=== PATIENT | male | born 1980 | race American Indian/Alaskan Native ===

== ENCOUNTER 2016-11-02 13:29 | Inpatient (IN) | payer MEDICAID ==
[2016-11-02 14:48] LABS: Hematocrit 28.6 % (35.5-45.6); Hemoglobin 9.4 gm/dl (11.8-15.2); Mean Corpuscular HGB Conc 33 % (32-34); Mean Corpuscular Hemoglobin 29 pg (28-32); Mean Corpuscular Volume 87 fl (84-94); Platelet Count 572 K/mm3 (140-440); Red Blood Count 3.29 M/mm3 (3.65-5.03); Red Cell Distribution Width 12.9 % (13.2-15.2); White Blood Count 6.5 K/mm3 (4.5-11.0)
[2016-11-02 15:05] LABS: Alanine Aminotransferase 7 units/L (7-56); Albumin 3.1 g/dL (3.9-5); Albumin/Globulin Ratio 0.7 %; Alkaline Phosphatase 100 units/L (35-129); Anion Gap 17 mmol/L; BUN/Creatinine Ratio 11.11; Blood Urea Nitrogen 10 mg/dL (9-20); Calcium 8.3 mg/dL (8.4-10.2); Carbon Dioxide 24 mmol/L (22-30); Chloride 104.1 mmol/L (98-107); Glucose 107 mg/dL (75-100); Potassium 4.2 mmol/L (3.6-5.0); Sodium 141 mmol/L (137-145); Total Protein 7.8 g/dL (6.3-8.2)
[2016-11-02 15:14] LABS: Basophils % (Manual) 0 % (0.0-1.8); Blastocytes % (Manual) 0 %; Diff Status Complete; RBC Morphology Normal
[2016-11-02 15:19] LABS: Valproate < 2.8 ug/mL (50-100)
[2016-11-02] MEDS ORDERED: ZOFRAN IV ONE (15:32)
[2016-11-02] MEDS ORDERED: ASPIRIN PO ONE (15:32)
[2016-11-02] MEDS ORDERED: NITRO-BID 2% TP ONE (15:34)
[2016-11-02] MEDS ORDERED: DILAUDID IV ONE (15:34)
--- NOTE | 2016-11-02 15:44 | Emergency Department Report ---
HPI - General Chief Complaint: Seizure Time Seen by Provider: 11/02/16 15:21 - HPI HPI: Room 4 The patient is a 36-year-old male presenting with a chief complaint of chest pain. Patient states his symptoms began is restroom patient states he noticed rectal bleeding became dizzy. Patient states he went to lay down then developed substernal chest tightness associated with shortness of breath diaphoresis and nausea without vomiting. The patient was then told by his roommate he had a generalized tonic-clonic seizure. The patient currently gives his chest pain a score of 9/10. The patient has a history of MO in 2016 door which time a cardiac stent was placed Location: Chest Duration: hours Quality: Tightness Severity: 9/10 Modifying factors: [see above] Context: [see above] Mode of transportation: [not driving] ED Past Medical Hx - Past Medical History Previous Medical History?: Yes Hx Heart Attack/AMI: Yes Hx Seizures: Yes Hx HIV: Yes (on therapy. Last CD4 count in the 30s) Additional medical history: Herpes, UTI - Surgical History Past Surgical History?: No - Family History Family history: no significant - Social History Smoking Status: Never Smoker Substance Use Type: None (denies illicit drug use) ED Review of Systems ROS: Stated complaint: SEIZURE/CHEST PAIN Other details as noted in HPI Comment: All other systems reviewed and negative Constitutional: diaphoresis Eyes: denies: eye pain, eye discharge, vision change ENT: denies: ear pain, throat pain Respiratory: shortness of breath Cardiovascular: chest pain. denies: palpitations Endocrine: no symptoms reported Gastrointestinal: nausea. denies: vomiting Genitourinary: denies: urgency, dysuria Musculoskeletal: denies: back pain, joint swelling, arthralgia Skin: denies: rash, lesions Neurological: denies: headache, weakness, paresthesias Psychiatric: denies: anxiety, depression Hematological/Lymphatic: denies: easy bleeding, easy bruising Physical Exam - Physical Exam Vital Signs: Vital Signs 11/02/16 14:14 Temperature 98.5 F Pulse Rate 93 H Respiratory 16 Rate Blood Pressure 128/88 O2 Sat by Pulse 100 Oximetry Physical Exam: GENERAL: The patient is well-developed well-nourished male lying on the left lateral decubitus position not appearing to be in acute distress. [] HEENT: Normocephalic. Atraumatic. Extraocular motions are intact. Patient has moist mucous membranes. NECK: Supple. Trachea midline CHEST/LUNGS: Clear to auscultation. There is no respiratory distress noted. HEART/CARDIOVASCULAR: Regular. There is no tachycardia. There is no gallop rub or murmur. ABDOMEN: Abdomen is soft, nontender. Patient has normal bowel sounds. There is no abdominal distention. SKIN: There is no diaphoresis. NEURO: The patient is awake, alert, and oriented. The patient is cooperative. The patient has normal speech MUSCULOSKELETAL: There is no evidence of acute injury. ED Course Vital Signs 11/02/16 14:14 Temperature 98.5 F Pulse Rate 93 H Respiratory 16 Rate Blood Pressure 128/88 O2 Sat by Pulse 100 Oximetry ED Medical Decision Making - Lab Data Result diagrams: 11/02/16 14:28 11/02/16 14:28 Laboratory Tests 11/02/16 11/02/16 11/02/16 14:21 14:28 14:28 WBC 6.5 RBC 3.29 L Hgb 9.4 L Hct 28.6 L MCV 87 MCH 29 MCHC 33 RDW 12.9 L Plt Count 572 H [place] % (Auto) Vet Assistant Add Manual Diff Complete Total Counted 100 Seg Neutrophils % Vet Assistant Seg Neuts % (Manual) 81.0 H Band Neutrophils % 0 Lymphocytes % (Manual) 12.0 L Reactive Lymphs % (Man) 0 Monocytes % (Manual) 6.0 Eosinophils % (Manual) 1.0 Basophils % (Manual) 0 Metamyelocytes % 0 Myelocytes % 0 Promyelocytes % 0 Blast Cells % 0 Nucleated RBC % Not Reportable Seg Neutrophils # Man 5.3 Band Neutrophils # 0.0 Lymphocytes # (Manual) 0.8 L Abs React Lymphs (Man) 0.0 Monocytes # (Manual) 0.4 Eosinophils # (Manual) 0.1 Basophils # (Manual) 0.0 Metamyelocytes # 0.0 Myelocytes # 0.0 Promyelocytes # 0.0 Blast Cells # 0.0 WBC Morphology Not Reportable Hypersegmented Neuts Not Reportable Hyposegmented Neuts Not Reportable Hypogranular Neuts Not Reportable Smudge Cells Not Reportable Toxic Granulation Not Reportable Toxic Vacuolation Not Reportable Dohle Bodies Not Reportable Pelger-Huet Anomaly Not Reportable Kasie Rods Not Reportable Platelet Estimate Appears normal Clumped Platelets Not Reportable Plt Clumps, EDTA Not Reportable Large Platelets Not Reportable Giant Platelets Not Reportable Platelet Satelliting Not Reportable Plt Morphology Comment Not Reportable RBC Morphology Normal Dimorphic RBCs Not Reportable Polychromasia Not Reportable Hypochromasia Not Reportable Poikilocytosis Not Reportable Anisocytosis Not Reportable Microcytosis Not Reportable Macrocytosis Not Reportable Spherocytes Not Reportable Pappenheimer Bodies Not Reportable Sickle Cells Not Reportable Target Cells Not Reportable Tear Drop Cells Not Reportable Ovalocytes Not Reportable Helmet Cells Not Reportable Yepez-[place] Bodies Not Reportable [place] Rings Not Reportable Darryl Cells Not Reportable Bite Cells Not Reportable Crenated Cell Not Reportable Elliptocytes Not Reportable Acanthocytes (Spur) Not Reportable Rouleaux Not Reportable Hemoglobin C Crystals Not Reportable Schistocytes Not Reportable Malaria parasites Not Reportable Jaime Bodies Not Reportable Hem Pathologist Commnt No Sodium 141 Potassium 4.2 Chloride 104.1 Carbon Dioxide 24 Anion Gap 17 BUN 10 Creatinine 0.9 Estimated GFR > 60 BUN/Creatinine Ratio 11.11 Glucose 107 H POC Glucose 111 H Calcium 8.3 L Total Bilirubin 0.30 AST 17 ALT 7 Alkaline Phosphatase 100 Troponin T Total Protein 7.8 Albumin 3.1 L Albumin/Globulin Ratio 0.7 Phenytoin Valproic Acid 11/02/16 11/02/16 14:28 14:28 WBC RBC Hgb Hct MCV MCH MCHC RDW Plt Count [place] % (Auto) Add Manual Diff Total Counted Seg Neutrophils % Seg Neuts % (Manual) Band Neutrophils % Lymphocytes % (Manual) Reactive Lymphs % (Man) Monocytes % (Manual) Eosinophils % (Manual) Basophils % (Manual) Metamyelocytes % Myelocytes % Promyelocytes % Blast Cells % Nucleated RBC % Seg Neutrophils # Man Band Neutrophils # Lymphocytes # (Manual) Abs React Lymphs (Man) Monocytes # (Manual) Eosinophils # (Manual) Basophils # (Manual) Metamyelocytes # Myelocytes # Promyelocytes # Blast Cells # WBC Morphology Hypersegmented Neuts Hyposegmented Neuts Hypogranular Neuts Smudge Cells Toxic Granulation Toxic Vacuolation Dohle Bodies Pelger-Huet Anomaly Kasie Rods Platelet Estimate Clumped Platelets Plt Clumps, EDTA Large Platelets Giant Platelets Platelet Satelliting Plt Morphology Comment RBC Morphology Dimorphic RBCs Polychromasia Hypochromasia Poikilocytosis Anisocytosis Microcytosis Macrocytosis Spherocytes Pappenheimer Bodies Sickle Cells Target Cells Tear Drop Cells Ovalocytes Helmet Cells Yepez-[place] Bodies [place] Rings Darryl Cells Bite Cells Crenated Cell Elliptocytes Acanthocytes (Spur) Rouleaux Hemoglobin C Crystals Schistocytes Malaria parasites Jaime Bodies Hem Pathologist Commnt Sodium Potassium Chloride Carbon Dioxide Anion Gap BUN Creatinine Estimated GFR BUN/Creatinine Ratio Glucose POC Glucose Calcium Total Bilirubin AST ALT Alkaline Phosphatase Troponin T < 0.010 Total Protein Albumin Albumin/Globulin Ratio Phenytoin 0.8 L Valproic Acid < 2.8 L - EKG Data -: EKG Interpreted by Me EKG shows normal: sinus rhythm Rate: normal - EKG Data When compared to previous EKG there are: previous EKG unavailable Interpretation: other (no ischemic changes seen) - Radiology Data Radiology results: image reviewed (chest x-ray) interpreted by me: Chest x-ray-no focal infiltrates, no pneumothorax - Differential Diagnosis ACS, GERD, pericarditis Critical care attestation.: If time is entered above; I have spent that time in minutes in the direct care of this critically ill patient, excluding procedure time. ED Disposition Clinical Impression: Chest pain Disposition: DC-[id number] OP ADMIT IP TO THIS HOSP Is pt being admited?: Yes Does the pt Need Aspirin: Yes Condition: Fair Instructions: Chest Pain (ED) Referrals: PRIMARY CARE, [Primary Care Provider] - 3-5 Days Time of Disposition: 15:53 (Hospitalist notified)
--- NOTE | 2016-11-02 16:25 | XRay Report ---
FINAL REPORT PROCEDURE: XR CHEST 1V AP TECHNIQUE: Chest radiograph anteroposterior view. CPT 48104 HISTORY: chest pain COMPARISON: No prior studies are available for comparison. FINDINGS: Heart: Normal. Mediastinum/Vessels: Normal. Lungs/Pleural space: Normal. Bony thorax: No acute osseous abnormality. Life support devices: None. IMPRESSION: No acute cardiopulmonary abnormality.
[2016-11-02] MEDS ORDERED: CEREBYX 500 MG.PE in NACL 0.9% 100 ML IV ONE (16:30)
--- NOTE | 2016-11-02 16:34 | History and Physical Report ---
History of Present Illness Chief complaint: I feel tired, History of present illness: 36 YO Male with OH, CAD S/P Stent placement, Seizure Disorder, AIDS, HSV presents to ED for evaluation. Pt states that he began feeling sick today. Patient states he was using the restroom when he noticed blood on his stool. Pt states that he suddenly became dizzy. Patient states he went to lay down then developed chest tightness. Pt also complains of shortness of breath and feeling of impending doom and then lost consciousness. Upon regaining consciousness, the patient was told by his roommate he had a generalized tonic-clonic seizure. Pt is confused, lethargic, and shows cognitive slowing but is able to protect his airway. Past History Past Medical History: acute OH, CAD, HIV/AIDS, seizures Past Surgical History: Other (stent placement) Social history: single, other (leves with friends). denies: smoking, alcohol abuse, prescription drug abuse Family history: hypertension Medications and Allergies Allergies Allergy/AdvReac Type Severity Reaction Status Date / Time No Known Allergies Allergy Unverified 11/02/16 14:19 Active Meds: Active Medications Fosphenytoin Sodium 500 mg.pe/ (Sodium Chloride) 110 mls @ 200 mls/hr IV ONCE.ED ONE Stop: 11/02/16 17:02 Last Admin: 11/02/16 16:14 Dose: 200 mls/hr Review of Systems All systems: negative Constitutional: no fever, no chills, no sweats Ears, nose, mouth and throat: no ear pain Cardiovascular: no chest pain, no orthopnea, no palpitations Respiratory: no cough, no cough with sputum Gastrointestinal: no abdominal pain Genitourinary Male: no hematuria, no flank pain Rectal: other (blood in stool), no pain Musculoskeletal: no neck stiffness Integumentary: no rash, no redness Neurological: seizures, no head injury, no paralysis Psychiatric: anxiety Endocrine: no cold intolerance, no heat intolerance Hematologic/Lymphatic: no easy bruising, no easy bleeding Allergic/Immunologic: no urticaria Exam - Constitutional Vitals: Temp Pulse Resp BP Pulse Ox 98.5 F 93 H 16 128/88 100 11/02/16 14:14 11/02/16 14:14 11/02/16 14:14 11/02/16 14:14 08/06/17 14:14 General appearance: Present: mild distress - EENT Eyes: Present: PERRL ENT: hearing intact, clear oral mucosa - Neck Neck: Present: supple, normal ROM - Respiratory Respiratory: bilateral: diminished - Cardiovascular Heart Sounds: Present: S1 & S2. Absent: rub, click - Extremities Extremities: pulses symmetrical, No edema Extremity abnormal: edema Peripheral Pulses: within normal limits - Abdominal General gastrointestinal: Present: soft, non-tender, non-distended, normal bowel sounds Male genitourinary: Present: normal - Integumentary Integumentary: Present: clear, dry, clammy, decreased turgor - Musculoskeletal Musculoskeletal: generalized weakness - Psychiatric Psychiatric: cooperative, agitated - Neurologic Neurologic: no focal deficits, no gait normal, other (cognitive slowing, ) Results - Labs CBC & Chem 7: 11/02/16 14:28 11/02/16 14:28 Labs: Abnormal lab results 11/02/16 11/02/16 11/02/16 Range/Units 14:21 14:28 14:28 RBC 3.29 L (3.65-5.03) M/mm3 Hgb 9.4 L (11.8-15.2) gm/dl Hct 28.6 L (35.5-45.6) % RDW 12.9 L (13.2-15.2) % Plt Count 572 H (140-440) K/mm3 Seg Neuts % (Manual) 81.0 H (40.0-70.0) % Lymphocytes % (Manual) 12.0 L (13.4-35.0) % Lymphocytes # (Manual) 0.8 L (1.2-5.4) K/mm3 Glucose 107 H (75-100) mg/dL POC Glucose 111 H (70-105) Calcium 8.3 L (8.4-10.2) mg/dL Albumin 3.1 L (3.9-5) g/dL Phenytoin (10.0-20.0) mg/L Valproic Acid (50-100) ug/mL 11/02/16 Range/Units 14:28 RBC (3.65-5.03) M/mm3 Hgb (11.8-15.2) gm/dl Hct (35.5-45.6) % RDW (13.2-15.2) % Plt Count (140-440) K/mm3 Seg Neuts % (Manual) (40.0-70.0) % Lymphocytes % (Manual) (13.4-35.0) % Lymphocytes # (Manual) (1.2-5.4) K/mm3 Glucose (75-100) mg/dL POC Glucose (70-105) Calcium (8.4-10.2) mg/dL Albumin (3.9-5) g/dL Phenytoin 0.8 L (10.0-20.0) mg/L Valproic Acid < 2.8 L (50-100) ug/mL Assessment and Plan - Patient Problems (1) Status epilepticus Current Visit: Yes Status: Acute Plan to address problem: CT head, EEG, keppra therapy, (2) Encephalopathy acute Current Visit: Yes Status: Acute Plan to address problem: IVF replacement, CT head, It CT negative, will consider Crypto/CMV antigen. (3) AIDS Current Visit: Yes Status: Acute Plan to address problem: Resume home medication, Outpatient ID F/U (4) GI bleed Current Visit: Yes Status: Acute Qualifiers: GI bleed type/associated pathology: anorectal hemorrhage Gastritis type: G Qualified Code(s): K62.5 - Hemorrhage of anus and rectum Plan to address problem: CBC in am, ppi therapy, supportive care, No transfusion at this time. (5) DVT prophylaxis Current Visit: Yes Status: Acute
[2016-11-02] MEDS ORDERED: TYLENOL PO PRN (16:37)
[2016-11-02] MEDS ORDERED: MILK OF MAGNESIA PO PRN (16:37)
[2016-11-02] MEDS ORDERED: PROVENTIL IH PRN (16:37)
[2016-11-02] MEDS ORDERED: DULCOLAX PR PRN (16:37)
--- NOTE | 2016-11-02 17:10 | Cat Scan Report ---
FINAL REPORT PROCEDURE: CT HEAD/BRAIN WO CON TECHNIQUE: Computerized tomography of the head was performed without contrast material. HISTORY: seizure COMPARISON: No prior studies are available for comparison. FINDINGS: Visualized portions of the paranasal sinuses and mastoid air cells are clear. No calvarial fracture is seen. Cerebral ventricles are normal in size. No acute intracranial hemorrhage or mass effect is seen. No CVA is seen. IMPRESSION: No abnormalities are seen.
[2016-11-02 18:27] LABS: Bilirubin,Urine NEG (Negative); Blood,Urine NEG (Negative); Ketones,Urine NEG (Negative); Leukocyte Esterase,Urine MOD (Negative); Mucus,Urine FEW /HPF; Nitrite,Urine NEG (Negative)
[2016-11-02] MEDS: TYLENOL #3 PO PRN (20:57)
[2016-11-02] MEDS: KEPPRA PO SCH (21:32)
--- NOTE | 2016-11-03 04:48 | Admit Criteria Form ---
Admission Criteria Documentation: SEIZURE Clinical Indications for Admission to Inpatient Care (Place 'X' for any and all applicable criteria): Admission is indicated for seizure and ANY ONE of the following(1)(2)(3)(4)(5): [ ]I. Inpatient admission required rather than observation care (Also use Seizure: Observation Care Criteria as appropriate) because of ANY ONE of the following: [ ]a) Altered mental status that is severe or persistent [ ]b) New focal neurologic deficit that is severe or persistent [ ]c) Metabolic disorder (eg, hypoglycemia, hyponatremia) that is severe or persistent [ ]d) Recurrent seizure [ ]e) Outpatient antiseizure regimen cannot be established (eg , patient cannot tolerate medication, initiation requires inpatient care) [ ]f) Need for ongoing intravenous infusion of antiseizure medication [ ]g) Cardiac arrhythmias of immediate concern [ ]h) Cerebral bleeding, hydrocephalus, or vasospasm monitoring (14) [ ]i) Increased intracranial pressure or cerebral edema monitoring (15) [ ]j) Other treatment or monitoring requiring inpatient admission [X]II. Status epilepticus [A] or repetitive seizures not controlled with emergent treatment (6)(8) [ ]III. Brain disorder (eg, tumor, edema, and hydrocephalus) that requiring monitoring or intervention available only at inpatient level of care. [ ]IV. Brain insult (eg, severe trauma, stroke, drug toxicity, or withdrawal) that requires monitoring or intervention available only at inpatient level of care (10)(11) Extended stay beyond goal length of stay may be needed for (22) [ ]a) Complications of status epilepticus [ ]b) Refractory status epilepticus [ ]c) Etiology-specific therapy for conditions such as [employer]. [employer] infection, head injury,eclampsia, severe metabolic abnormalities, and brain tumor [ ]d) Residual neurologic damage, [ ]e) Initiation of significant change to anticonvulsant treatment [ ]f) Older patients (65 years or older) [ ]g) Patient requiring intubation (eg, to protect airway) The original [employer] content created by [employer] has been revised. The portions of the content which have been revised are identified through the use of italic text or in bold, and [facility] [employer] has neither reviewed nor approved the modified material. All other unmodified content is copyright [facility] [employer]. Please see references footnoted in the original [facility] edition 2016 Admission Criteria Met: Yes
[2016-11-03] MEDS: TYLENOL #3 PO PRN (04:52)
--- NOTE | 2016-11-03 08:20 | Progress Note ---
<JANE MACKAY - Last Filed: 11/03/16 13:46> Assessment and Plan Assessment and plan: Status epilepticus Normal CT of the head EEG pending MRI of the brain pending Started on keppra therapy Neurology consulted Encephalopathy acute Resolved Urinary Tract Infection Started on Keflex by mouth IV fluid hydration AIDS Patient has a CD4 34 in September 2016 Comprehensive virus culture/ G6PD and cryptococcal antigen Started on antiviral (Truvada and ritonavir-boosted Prezista while inpatient due to formulary restrictions), also Bactrim for PCP prophylaxis. managed by Infectious diseases. 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 Cryptococcal antigen ordred GI bleed Stable no transfusion needed at present time. Closely monitor H&H and CBC GI consulted Supportive care Continue on ppi therapy. Rectal Ulcer Patient has ulcerations involves rectal,penis and throughout his gluteal fold Wound care consulted Followed by ID c DVT prophylaxis Lovenox History Interval history: Patient complains chronic rectal area pain and rated his pain level 7/10. No episode of seizures overnight, denies headache, chest pain or dizziness. Hospitalist Physical - Constitutional Vitals: Temp Pulse Resp BP Pulse Ox 100.4 F H 81 18 117/70 99 11/02/16 22:00 11/02/16 22:00 11/02/16 22:00 11/02/16 22:00 11/02/16 22:00 General appearance: Present: no acute distress - EENT Eyes: Present: PERRL ENT: hearing intact - Neck Neck: Present: supple - Respiratory Respiratory effort: normal Respiratory: bilateral: CTA - Cardiovascular Rhythm: regular Heart Sounds: Present: S1 & S2 - Extremities Extremities: no ischemia Peripheral Pulses: within normal limits - Abdominal General gastrointestinal: soft, non-tender - Integumentary Integumentary: Present: clear (Sacrum wound, with gauze dressing, ) - Psychiatric Psychiatric: appropriate mood/affect - Neurologic Neurologic: CNII-XII intact, moves all extremities - Allied Health Allied health notes reviewed: nursing Results - Labs CBC & Chem 7: 11/03/16 09:00 11/02/16 14:28 Labs: Laboratory Last Values WBC 6.5 K/mm3 (4.5-11.0) 11/02/16 14:28 RBC 3.29 M/mm3 (3.65-5.03) L 11/02/16 14:28 Hgb 9.4 gm/dl (11.8-15.2) L 11/02/16 14:28 Hct 28.6 % (35.5-45.6) L 11/02/16 14:28 MCV 87 fl (84-94) 11/02/16 14:28 MCH 29 pg (28-32) 11/02/16 14:28 MCHC 33 % (32-34) 11/02/16 14:28 RDW 12.9 % (13.2-15.2) L 11/02/16 14:28 Plt Count 572 K/mm3 (140-440) H 11/02/16 14:28 [place] % (Auto) Benefit Authorizer 11/02/16 14:28 Add Manual Diff Complete 11/02/16 14:28 Total Counted 100 11/02/16 14:28 Seg Neutrophils % Benefit Authorizer 11/02/16 14:28 Seg Neuts % (Manual) 81.0 % (40.0-70.0) H 11/02/16 14:28 Band Neutrophils % 0 % 11/02/16 14:28 Lymphocytes % (Manual) 12.0 % (13.4-35.0) L 11/02/16 14:28 Reactive Lymphs % (Man) 0 % 11/02/16 14:28 Monocytes % (Manual) 6.0 % (0.0-7.3) 11/02/16 14:28 Eosinophils % (Manual) 1.0 % (0.0-4.3) 11/02/16 14:28 Basophils % (Manual) 0 % (0.0-1.8) 11/02/16 14:28 Metamyelocytes % 0 % 11/02/16 14:28 Myelocytes % 0 % 11/02/16 14:28 Promyelocytes % 0 % 11/02/16 14:28 Blast Cells % 0 % 11/02/16 14:28 Nucleated RBC % Not Reportable 11/02/16 14:28 Seg Neutrophils # Man 5.3 K/mm3 (1.8-7.7) 11/02/16 14:28 Band Neutrophils # 0.0 K/mm3 11/02/16 14:28 Lymphocytes # (Manual) 0.8 K/mm3 (1.2-5.4) L 11/02/16 14:28 Abs React Lymphs (Man) 0.0 K/mm3 11/02/16 14:28 Monocytes # (Manual) 0.4 K/mm3 (0.0-0.8) 11/02/16 14:28 Eosinophils # (Manual) 0.1 K/mm3 (0.0-0.4) 11/02/16 14:28 Basophils # (Manual) 0.0 K/mm3 (0.0-0.1) 11/02/16 14:28 Metamyelocytes # 0.0 K/mm3 11/02/16 14:28 Myelocytes # 0.0 K/mm3 11/02/16 14:28 Promyelocytes # 0.0 K/mm3 11/02/16 14:28 Blast Cells # 0.0 K/mm3 11/02/16 14:28 WBC Morphology Not Reportable 11/02/16 14:28 Hypersegmented Neuts Not Reportable 11/02/16 14:28 Hyposegmented Neuts Not Reportable 11/02/16 14:28 Hypogranular Neuts Not Reportable 11/02/16 14:28 Smudge Cells Not Reportable 11/02/16 14:28 Toxic Granulation Not Reportable 11/02/16 14:28 Toxic Vacuolation Not Reportable 11/02/16 14:28 Dohle Bodies Not Reportable 11/02/16 14:28 Pelger-Huet Anomaly Not Reportable 11/02/16 14:28 Kasie Rods Not Reportable 11/02/16 14:28 Platelet Estimate Appears normal 11/02/16 14:28 Clumped Platelets Not Reportable 11/02/16 14:28 Plt Clumps, EDTA Not Reportable 11/02/16 14:28 Large Platelets Not Reportable 11/02/16 14:28 Giant Platelets Not Reportable 11/02/16 14:28 Platelet Satelliting Not Reportable 11/02/16 14:28 Plt Morphology Comment Not Reportable 11/02/16 14:28 RBC Morphology Normal 11/02/16 14:28 Dimorphic RBCs Not Reportable 11/02/16 14:28 Polychromasia Not Reportable 11/02/16 14:28 Hypochromasia Not Reportable 11/02/16 14:28 Poikilocytosis Not Reportable 11/02/16 14:28 Anisocytosis Not Reportable 11/02/16 14:28 Microcytosis Not Reportable 11/02/16 14:28 Macrocytosis Not Reportable 11/02/16 14:28 Spherocytes Not Reportable 11/02/16 14:28 Pappenheimer Bodies Not Reportable 11/02/16 14:28 Sickle Cells Not Reportable 11/02/16 14:28 Target Cells Not Reportable 11/02/16 14:28 Tear Drop Cells Not Reportable 11/02/16 14:28 Ovalocytes Not Reportable 11/02/16 14:28 Helmet Cells Not Reportable 11/02/16 14:28 Yepez-Swartz Bodies Not Reportable 11/02/16 14:28 [place] Rings Not Reportable 11/02/16 14:28 Darryl Cells Not Reportable 11/02/16 14:28 Bite Cells Not Reportable 11/02/16 14:28 Crenated Cell Not Reportable 11/02/16 14:28 Elliptocytes Not Reportable 11/02/16 14:28 Acanthocytes (Spur) Not Reportable 11/02/16 14:28 Rouleaux Not Reportable 11/02/16 14:28 Hemoglobin C Crystals Not Reportable 11/02/16 14:28 Schistocytes Not Reportable 11/02/16 14:28 Malaria parasites Not Reportable 11/02/16 14:28 Jaime Bodies Not Reportable 11/02/16 14:28 Hem Pathologist Commnt No 11/02/16 14:28 Sodium 141 mmol/L (137-145) 11/02/16 14:28 Potassium 4.2 mmol/L (3.6-5.0) 11/02/16 14:28 Chloride 104.1 mmol/L (98-107) 11/02/16 14:28 Carbon Dioxide 24 mmol/L (22-30) 11/02/16 14:28 Anion Gap 17 mmol/L 11/02/16 14:28 BUN 10 mg/dL (9-20) 11/02/16 14:28 Creatinine 0.9 mg/dL (0.8-1.5) 11/02/16 14:28 Estimated GFR > 60 ml/min 11/02/16 14:28 BUN/Creatinine Ratio 11.11 % 11/02/16 14:28 Glucose 107 mg/dL (75-100) H 11/02/16 14:28 POC Glucose 111 (70-105) H 11/02/16 14:21 Calcium 8.3 mg/dL (8.4-10.2) L 11/02/16 14:28 Total Bilirubin 0.30 mg/dL (0.1-1.2) 11/02/16 14:28 AST 17 units/L (5-40) 11/02/16 14:28 ALT 7 units/L (7-56) 11/02/16 14:28 Alkaline Phosphatase 100 units/L (35-129) 11/02/16 14:28 Troponin T < 0.010 ng/mL (0.00-0.029) 11/02/16 20:20 Total Protein 7.8 g/dL (6.3-8.2) 11/02/16 14:28 Albumin 3.1 g/dL (3.9-5) L 11/02/16 14:28 Albumin/Globulin Ratio 0.7 % 11/02/16 14:28 Urine Color Yellow (Yellow) 11/02/16 16:34 Urine Turbidity Clear (Clear) 11/02/16 16:34 Urine pH 5.0 (5.0-7.0) 11/02/16 16:34 Ur Specific Clark 1.027 (1.003-1.030) 11/02/16 16:34 Urine Protein 30 mg/dl mg/dL (Negative) 11/02/16 16:34 Urine Glucose (UA) Neg mg/dL (Negative) 11/02/16 16:34 Urine Ketones Neg mg/dL (Negative) 11/02/16 16:34 Urine Blood Neg (Negative) 11/02/16 16:34 Urine Nitrite Neg (Negative) 11/02/16 16:34 Urine Bilirubin Neg (Negative) 11/02/16 16:34 Urine Urobilinogen 4.0 mg/dL (<2.0) 11/02/16 16:34 Ur Leukocyte Esterase Mod (Negative) 11/02/16 16:34 Urine WBC (Auto) 63.0 /HPF (0.0-6.0) H 11/02/16 16:34 Urine RBC (Auto) 16.0 /HPF (0.0-6.0) 11/02/16 16:34 U Epithel Cells (Auto) 5.0 /HPF (0-13.0) 11/02/16 16:34 Urine Mucus Few /HPF 11/02/16 16:34 Phenytoin 0.8 mg/L (10.0-20.0) L 11/02/16 14:28 Valproic Acid < 2.8 ug/mL (50-100) L 11/02/16 14:28 <SINDY TRAN - Last Filed: 11/03/16 15:12> Assessment and Plan Assessment and plan: I saw and evaluated the patient. I agree with the findings and the plan of care as documented in the Nurse Practitioner's~note, with the following corrections and additions. Extensively discussed with patient, ID and neurology consult, pain control, obtain medical records. Discussed with GI and ID. Plan as noted. Hospitalist Physical - Constitutional Vitals: Temp Pulse Resp BP Pulse Ox 99.8 F H 82 18 106/56 99 11/03/16 08:15 11/03/16 08:15 11/03/16 08:15 11/03/16 08:15 11/03/16 08:15 Results - Labs CBC & Chem 7: 11/03/16 09:00 11/02/16 14:28 Labs: Laboratory Last Values WBC 6.5 K/mm3 (4.5-11.0) 11/02/16 14:28 RBC 3.29 M/mm3 (3.65-5.03) L 11/02/16 14:28 Hgb 9.2 gm/dl (11.8-15.2) L 11/03/16 09:00 Hct 27.1 % (35.5-45.6) L 11/03/16 09:00 MCV 87 fl (84-94) 11/02/16 14:28 MCH 29 pg (28-32) 11/02/16 14:28 MCHC 33 % (32-34) 11/02/16 14:28 RDW 12.9 % (13.2-15.2) L 11/02/16 14:28 Plt Count 572 K/mm3 (140-440) H 11/02/16 14:28 [place] % (Auto) Benefit Authorizer 11/02/16 14:28 Add Manual Diff Complete 11/02/16 14:28 Total Counted 100 11/02/16 14:28 Seg Neutrophils % Benefit Authorizer 11/02/16 14:28 Seg Neuts % (Manual) 81.0 % (40.0-70.0) H 11/02/16 14:28 Band Neutrophils % 0 % 11/02/16 14:28 Lymphocytes % (Manual) 12.0 % (13.4-35.0) L 11/02/16 14:28 Reactive Lymphs % (Man) 0 % 11/02/16 14:28 Monocytes % (Manual) 6.0 % (0.0-7.3) 11/02/16 14:28 Eosinophils % (Manual) 1.0 % (0.0-4.3) 11/02/16 14:28 Basophils % (Manual) 0 % (0.0-1.8) 11/02/16 14:28 Metamyelocytes % 0 % 11/02/16 14:28 Myelocytes % 0 % 11/02/16 14:28 Promyelocytes % 0 % 11/02/16 14:28 Blast Cells % 0 % 11/02/16 14:28 Nucleated RBC % Not Reportable 11/02/16 14:28 Seg Neutrophils # Man 5.3 K/mm3 (1.8-7.7) 11/02/16 14:28 Band Neutrophils # 0.0 K/mm3 11/02/16 14:28 Lymphocytes # (Manual) 0.8 K/mm3 (1.2-5.4) L 11/02/16 14:28 Abs React Lymphs (Man) 0.0 K/mm3 11/02/16 14:28 Monocytes # (Manual) 0.4 K/mm3 (0.0-0.8) 11/02/16 14:28 Eosinophils # (Manual) 0.1 K/mm3 (0.0-0.4) 11/02/16 14:28 Basophils # (Manual) 0.0 K/mm3 (0.0-0.1) 11/02/16 14:28 Metamyelocytes # 0.0 K/mm3 11/02/16 14:28 Myelocytes # 0.0 K/mm3 11/02/16 14:28 Promyelocytes # 0.0 K/mm3 11/02/16 14:28 Blast Cells # 0.0 K/mm3 11/02/16 14:28 WBC Morphology Not Reportable 11/02/16 14:28 Hypersegmented Neuts Not Reportable 11/02/16 14:28 Hyposegmented Neuts Not Reportable 11/02/16 14:28 Hypogranular Neuts Not Reportable 11/02/16 14:28 Smudge Cells Not Reportable 11/02/16 14:28 Toxic Granulation Not Reportable 11/02/16 14:28 Toxic Vacuolation Not Reportable 11/02/16 14:28 Dohle Bodies Not Reportable 11/02/16 14:28 Pelger-Huet Anomaly Not Reportable 11/02/16 14:28 Kasie Rods Not Reportable 11/02/16 14:28 Platelet Estimate Appears normal 11/02/16 14:28 Clumped Platelets Not Reportable 11/02/16 14:28 Plt Clumps, EDTA Not Reportable 11/02/16 14:28 Large Platelets Not Reportable 11/02/16 14:28 Giant Platelets Not Reportable 11/02/16 14:28 Platelet Satelliting Not Reportable 11/02/16 14:28 Plt Morphology Comment Not Reportable 11/02/16 14:28 RBC Morphology Normal 11/02/16 14:28 Dimorphic RBCs Not Reportable 11/02/16 14:28 Polychromasia Not Reportable 11/02/16 14:28 Hypochromasia Not Reportable 11/02/16 14:28 Poikilocytosis Not Reportable 11/02/16 14:28 Anisocytosis Not Reportable 11/02/16 14:28 Microcytosis Not Reportable 11/02/16 14:28 Macrocytosis Not Reportable 11/02/16 14:28 Spherocytes Not Reportable 11/02/16 14:28 Pappenheimer Bodies Not Reportable 11/02/16 14:28 Sickle Cells Not Reportable 11/02/16 14:28 Target Cells Not Reportable 11/02/16 14:28 Tear Drop Cells Not Reportable 11/02/16 14:28 Ovalocytes Not Reportable 11/02/16 14:28 Helmet Cells Not Reportable 11/02/16 14:28 Yepez-Swartz Bodies Not Reportable 11/02/16 14:28 [place] Rings Not Reportable 11/02/16 14:28 Darryl Cells Not Reportable 11/02/16 14:28 Bite Cells Not Reportable 11/02/16 14:28 Crenated Cell Not Reportable 11/02/16 14:28 Elliptocytes Not Reportable 11/02/16 14:28 Acanthocytes (Spur) Not Reportable 11/02/16 14:28 Rouleaux Not Reportable 11/02/16 14:28 Hemoglobin C Crystals Not Reportable 11/02/16 14:28 Schistocytes Not Reportable 11/02/16 14:28 Malaria parasites Not Reportable 11/02/16 14:28 Jaime Bodies Not Reportable 11/02/16 14:28 Hem Pathologist Commnt No 11/02/16 14:28 Sodium 141 mmol/L (137-145) 11/02/16 14:28 Potassium 4.2 mmol/L (3.6-5.0) 11/02/16 14:28 Chloride 104.1 mmol/L (98-107) 11/02/16 14:28 Carbon Dioxide 24 mmol/L (22-30) 11/02/16 14:28 Anion Gap 17 mmol/L 11/02/16 14:28 BUN 10 mg/dL (9-20) 11/02/16 14:28 Creatinine 0.9 mg/dL (0.8-1.5) 11/02/16 14:28 Estimated GFR > 60 ml/min 11/02/16 14:28 BUN/Creatinine Ratio 11.11 % 11/02/16 14:28 Glucose 107 mg/dL (75-100) H 11/02/16 14:28 POC Glucose 111 (70-105) H 11/02/16 14:21 Calcium 8.3 mg/dL (8.4-10.2) L 11/02/16 14:28 Total Bilirubin 0.30 mg/dL (0.1-1.2) 11/02/16 14:28 AST 17 units/L (5-40) 11/02/16 14:28 ALT 7 units/L (7-56) 11/02/16 14:28 Alkaline Phosphatase 100 units/L (35-129) 11/02/16 14:28 Troponin T < 0.010 ng/mL (0.00-0.029) 11/02/16 20:20 Total Protein 7.8 g/dL (6.3-8.2) 11/02/16 14:28 Albumin 3.1 g/dL (3.9-5) L 11/02/16 14:28 Albumin/Globulin Ratio 0.7 % 11/02/16 14:28 Urine Color Yellow (Yellow) 11/02/16 16:34 Urine Turbidity Clear (Clear) 11/02/16 16:34 Urine pH 5.0 (5.0-7.0) 11/02/16 16:34 Ur Specific [place] 1.027 (1.003-1.030) 11/02/16 16:34 Urine Protein 30 mg/dl mg/dL (Negative) 11/02/16 16:34 Urine Glucose (UA) Neg mg/dL (Negative) 11/02/16 16:34 Urine Ketones Neg mg/dL (Negative) 11/02/16 16:34 Urine Blood Neg (Negative) 11/02/16 16:34 Urine Nitrite Neg (Negative) 11/02/16 16:34 Urine Bilirubin Neg (Negative) 11/02/16 16:34 Urine Urobilinogen 4.0 mg/dL (<2.0) 11/02/16 16:34 Ur Leukocyte Esterase Mod (Negative) 11/02/16 16:34 Urine WBC (Auto) 63.0 /HPF (0.0-6.0) H 11/02/16 16:34 Urine RBC (Auto) 16.0 /HPF (0.0-6.0) 11/02/16 16:34 U Epithel Cells (Auto) 5.0 /HPF (0-13.0) 11/02/16 16:34 Urine Mucus Few /HPF 11/02/16 16:34 Phenytoin 0.8 mg/L (10.0-20.0) L 11/02/16 14:28 Valproic Acid < 2.8 ug/mL (50-100) L 11/02/16 14:28
[2016-11-03] MEDS: ZOFRAN IV PRN (08:33)
[2016-11-03 09:50] LABS: Hematocrit 27.1 % (35.5-45.6); Hemoglobin 9.2 gm/dl (11.8-15.2)
--- NOTE | 2016-11-03 10:53 | Gastroenterology Consultation ---
History of Present Illness - Reason for Consult Consult date: 11/03/16 GI bleed Requesting physician: AMIE COHN - History of Present Illness Patient is a 36 y/o male with a medical history of TN, CAD, HIV, and seizures who presented to the ER yesterday for evaluation due to c/o blood in stool, dizziness, chest tightness, SOB, and s/p a tonic-clonic seizure. This morning he was laying on his side in the bed due to rectal pain. Mild distress noted. He reports having rectal pain with a wound that is malodorous with copious drainage that has progressively worsened since last year after undergoing surgical intervention for a rectal fissure. He also reports being told by a PCP that the rectal sores were positive for HSV which has not improved with treatment. He states he had a BM yesterday with brown stool but noted a large amount of maroon/bright red colored blood in the toilet and bright red blood on TP. He states it took him a long time to clean himself up afterwards, becoming tired, and then developed dizziness, chest tightness, and lost consciousness. Denies any more BMs or signs of active bleeding overnight or this morning. He reports multiple episodes of rectal pain and bleeding over the years. He states he had a colonoscopy in [place] approximately 2008 that showed a mass which had to be removed surgically but he is unsure of location or if he had a resection. Pathology unknown. Pt is noted to be a poor historian. Denies CP, SOB , dizziness, abd pain, N/V, hematemesis, melena, diarrhea, or constipation. No hx of IBD. Admits to a Fhx of colon cancer with a grandmother who was diagnosed in her 60s. On daily ASA due to s/p stent placement after TN in 03/14. Past History Past Medical History: acute TN, CAD, HIV/AIDS, seizures Past Surgical History: Other (stent placement, fissure, colon mass ) Social history: single, other (lives with friends). denies: smoking, alcohol abuse, prescription drug abuse Family history: cancer (grandmother with colon CA), hypertension Medications and Allergies Allergies Allergy/AdvReac Type Severity Reaction Status Date / Time No Known Allergies Allergy Unverified 11/02/16 14:19 Home Medications Medication Instructions Recorded Confirmed Last Taken Type Acyclovir TID 11/03/16 Unknown History Ambien PO HS 11/03/16 Unknown History Cerebyx DAILY 11/03/16 Unknown History Descovy 200-25 mg Tablet PO 11/03/16 Unknown History HYDROcodone/ACETAMINOPHEN PO Q4HR PRN 11/03/16 Unknown History Prezcobix 800 mg-150 mg (Nf) PO DAILY 11/03/16 Unknown History Active Meds: Active Medications Acetaminophen (Tylenol) 650 mg PO Q4H PRN PRN Reason: Pain MILD(1-3)/Fever >100.5/MORAN Acetaminophen/Codeine Phosphate (Tylenol #3) 1 tab PO Q6H PRN PRN Reason: Pain, Moderate (4-6) Last Admin: 11/03/16 04:52 Dose: 1 tab Albuterol (Proventil) 2.5 mg IH Q4H PRN PRN Reason: Shortness Of Breath Bisacodyl (Dulcolax) 10 mg KS QDAY PRN PRN Reason: Constipation unrelieved by [facility] Cephalexin (Keflex) 500 mg PO Q12HR JAMES Sodium Chloride (Nacl 0.45% 1000 Ml) 1,000 mls @ 42 mls/hr IV DIRECT JAMES Levetiracetam (Keppra) 500 mg PO BID JAMES Last Admin: 11/02/16 21:32 Dose: 500 mg Magnesium Hydroxide (Milk Of Magnesia) 30 ml PO Q4H PRN PRN Reason: Constipation Morphine Sulfate (Morphine) 2 mg IV Q4H PRN PRN Reason: Pain, Moderate (4-6) Ondansetron HCl (Zofran) 4 mg IV Q8H PRN PRN Reason: N/V unrelieved by Reglan Last Admin: 11/03/16 08:33 Dose: 4 mg Oxycodone/Acetaminophen (Percocet 5/325) 1 tab PO Q4H PRN PRN Reason: Pain, Moderate (4-6) Review of Systems - Review of Systems All systems: negative Constitutional: poor appetite Gastrointestinal: hematochezia Rectal: pain, bleeding, discharge Exam - Constitutional Vital Signs: Temp Pulse Resp BP Pulse Ox 100.4 F H 81 18 117/70 99 11/02/16 22:00 11/02/16 22:00 11/02/16 22:00 11/02/16 22:00 11/02/16 22:00 General appearance: mild distress, well-nourished, malodorous - EENT Eyes: PERRL, EOM intact ENT: hearing intact - Neck Neck: supple, normal ROM - Respiratory Respiratory: bilateral: CTA - Cardiovascular Rhythm: regular Heart Sounds: Present: S1 & S2 Extremities: No edema - Gastrointestinal General gastrointestinal: Present: soft, non-tender, non-distended, normal bowel sounds Rectal Exam: other (malodorous rectal/buttocks wound with copious drainage) - Neurologic Neurological: alert and oriented x3 - Psychiatric Psychiatric: appropriate mood/affect, cooperative - Labs CBC & Chem 7: 11/03/16 09:00 11/02/16 14:28 Lab Results: Laboratory Results - last 24 hr 11/02/16 11/02/16 11/03/16 18:29 20:20 09:00 Hgb 9.2 L Hct 27.1 L Troponin T < 0.010 < 0.010 Assessment and Plan 1. GI bleed 2. hematochezia 3. rectal pain 4. rectal wound 5. status epileptious 6. AIDS -Temp 99.8 -WBC-WNL -CT of the head- negative -HGB 9.4 -continue to monitor H&H and transfuse as needed -no active signs of bleeding overnight or this am -pt noted to have a rectal/buttocks wound that is malodorous with copious amount of drainage (etiology unclear- possible HSV per pt) -ID and wound consult placed -continue supportive care -will consider a colonoscopy pending ID recommendations -will follow
[2016-11-03] MEDS: MORPHINE IV PRN (11:17)
[2016-11-03] MEDS: KEFLEX PO SCH ×2 (11:18→22:08)
[2016-11-03] MEDS: KEPPRA PO SCH ×2 (11:18→22:07)
--- NOTE | 2016-11-03 12:16 | Consultation ---
History of Present Illness - Reason for Consult Consult date: 11/03/16 AIDS; Genital Wounds Requesting physician: SINDY TRAN - History of Present Illness Mr. Holguin is admitted for evaluation and treatment of worsening genital ulcerations over the past month. He has AIDS (CD4=34 in September 2016) and is followed by Dr. Ga Corea at [facility]. He is prescribed Descovy and Prezcobix. 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 He says that he missed several doses of Valtrex and the outbreak started. Despite resuming Valtrex, the ulcerations progressed and now involve his penis and throughout his gluteal fold. The areas are draining a malodorous fluid. ID consultation is requested for treatment recommendations. Past History Past Medical History: acute [place], CAD, HIV/AIDS, seizures, other (Genital HS; Rectal Fissure) Past Surgical History: Other (stent placement, fissure, colon mass ) Social history: single, other (lives with friends). denies: smoking, alcohol abuse, prescription drug abuse Family history: cancer (grandmother with colon CA), hypertension Medications and Allergies Allergies Allergy/AdvReac Type Severity Reaction Status Date / Time No Known Allergies Allergy Unverified 11/02/16 14:19 Home Medications Medication Instructions Recorded Confirmed Last Taken Type Acyclovir TID 11/03/16 Unknown History Ambien PO HS 11/03/16 Unknown History Cerebyx DAILY 11/03/16 Unknown History Descovy 200-25 mg Tablet PO 11/03/16 Unknown History HYDROcodone/ACETAMINOPHEN PO Q4HR PRN 11/03/16 Unknown History Prezcobix 800 mg-150 mg (Nf) PO DAILY 11/03/16 Unknown History Active Meds: Active Medications Acetaminophen (Tylenol) 650 mg PO Q4H PRN PRN Reason: Pain MILD(1-3)/Fever >100.5/MORAN Acetaminophen/Codeine Phosphate (Tylenol #3) 1 tab PO Q6H PRN PRN Reason: Pain, Moderate (4-6) Last Admin: 11/03/16 04:52 Dose: 1 tab Albuterol (Proventil) 2.5 mg IH Q4H PRN PRN Reason: Shortness Of Breath Bisacodyl (Dulcolax) 10 mg OR QDAY PRN PRN Reason: Constipation unrelieved by MOM Cephalexin (Keflex) [address] [facility] Last Admin: 11/03/16 11:18 Dose: 500 mg Sodium Chloride (Nacl 0.45% 1000 Ml) 1,000 mls @ 42 mls/hr IV DIRECT JAMES Levetiracetam (Keppra) [address] [facility] Last Admin: 11/03/16 11:18 Dose: 500 mg Magnesium Hydroxide (Milk Of Magnesia) 30 ml PO Q4H PRN PRN Reason: Constipation Morphine Sulfate (Morphine) 2 mg IV Q4H PRN PRN Reason: Pain, Moderate (4-6) Last Admin: 11/03/16 11:17 Dose: 2 mg Ondansetron HCl (Zofran) 4 mg IV Q8H PRN PRN Reason: N/V unrelieved by Nadege Last Admin: 11/03/16 08:33 Dose: 4 mg Oxycodone/Acetaminophen (Percocet 5/325) 1 tab PO Q4H PRN PRN Reason: Pain, Moderate (4-6) Review of Systems All systems: negative Constitutional: no fever, no chills, no weakness Ears, nose, mouth and throat: dysphagia, no sore throat Cardiovascular: no chest pain, no palpitations Respiratory: no cough, no hemoptysis, no shortness of breath Gastrointestinal: no abdominal pain, no nausea, no vomiting, no diarrhea Genitourinary Male: discharge, genital pain, genital sores, no dysuria Integumentary: sores (genital/ gluteal), no rash Neurological: no headaches Hematologic/Lymphatic: lymphadenopathy Physical Examination - Constitutional Vitals: Vital Signs Temp Pulse Resp BP Pulse Ox 99.8 F H 82 18 106/56 99 11/03/16 08:15 11/03/16 08:15 11/03/16 08:15 11/03/16 08:15 11/03/16 08:15 Temperature -Last 24 Hours Temperature 99.8 F Temperature 100.4 F Temperature 97.9 F Temperature 98.6 F General appearance: Present: mild distress (tearful about extent of genital lesions), obese - EENT Eyes: Absent: conjunctival injection ENT: thrush - Neck Neck: Present: supple - Respiratory Respiratory effort: normal Respiratory: bilateral: CTA, negative: rales, wheezing - Cardiovascular Rhythm: regular Heart Sounds: Present: S1 & S2 - Extremities Extremities: No edema - Abdominal General gastrointestinal: Present: soft, non-tender, non-distended Male genitourinary: Present: tender (ulceration of the circumference of the penile head with malodorous, seropurulent drainage), penile edema - Rectal Rectal Exam: other (extensive ulcerations in the entirety of the gluteal fold with seropurulent, malodorous drainage, no obvious bleeding ) - Psychiatric Psychiatric: appropriate mood/affect - Neurologic Neurologic: no focal deficits, moves all extremities Results - Labs CBC & Chem 7: 11/03/16 09:00 11/02/16 14:28 Labs: Abnormal lab results 11/03/16 Range/Units 09:00 Hgb 9.2 L (11.8-15.2) gm/dl Hct 27.1 L (35.5-45.6) % - Imaging and Cardiology CT Scan - head: report reviewed (no acute abnormality) Assessment and Plan - Patient Problems (1) Herpes, genital Current Visit: Yes Status: Acute Qualifiers: Herpes simplex infection site: H Plan to address problem: 1. Viral culture of wounds, then IV Acyclovir and topical Zovirax. 2. Early IVFs while receiving Acyclovir. (2) AIDS Current Visit: Yes Status: Acute Plan to address problem: 1. Will resume home regimen (Truvada and ritonavir-boosted Prezista while inpatient due to formulary restrictions), also Bactrim for PCP prophylaxis. 2. Check G6PD and cryptococcal antigen. (3) Thrush, oral Current Visit: Yes Status: Acute Plan to address problem: Course of Fluconazole.
--- NOTE | 2016-11-03 12:39 | Consultation ---
History of Present Illness - Reason for Consult Consult date: 11/03/16 seizure - History of Present Illness see my extensive dictated note there is hx of seizures since teenage years has been on dilantin but does not remember the drug levels might suggest switch to keppra check mri and eeg Past History Past Medical History: acute [place], CAD, HIV/AIDS, seizures, other (Genital HS; Rectal Fissure) Past Surgical History: Other (stent placement, fissure, colon mass ) Social history: single, other (lives with friends). denies: smoking, alcohol abuse, prescription drug abuse Family history: cancer (grandmother with colon CA), hypertension Medications and Allergies Allergies Allergy/AdvReac Type Severity Reaction Status Date / Time No Known Allergies Allergy Unverified 11/02/16 14:19 Home Medications Medication Instructions Recorded Confirmed Last Taken Type Acyclovir TID 11/03/16 Unknown History Ambien PO HS 11/03/16 Unknown History Cerebyx DAILY 11/03/16 Unknown History Descovy 200-25 mg Tablet PO 11/03/16 Unknown History HYDROcodone/ACETAMINOPHEN PO Q4HR PRN 11/03/16 Unknown History Prezcobix 800 mg-150 mg (Nf) PO DAILY 11/03/16 Unknown History Active Meds: Active Medications Acetaminophen (Tylenol) 650 mg PO Q4H PRN PRN Reason: Pain MILD(1-3)/Fever >100.5/MORAN Acetaminophen/Codeine Phosphate (Tylenol #3) 1 tab PO Q6H PRN PRN Reason: Pain, Moderate (4-6) Last Admin: 11/03/16 04:52 Dose: 1 tab Acyclovir (Zovirax) 1,100 mg IV Q8HR JAMES PRN Reason: Protocol Acyclovir (Acyclovir) 1 applic TP BID [facility] Stop: 11/13/16 12:59 Albuterol (Proventil) 2.5 mg IH Q4H PRN PRN Reason: Shortness Of Breath Bisacodyl (Dulcolax) 10 mg MN QDAY PRN PRN Reason: Constipation unrelieved by MOM Cephalexin (Keflex) 500 mg PO Q12HR [facility] Last Admin: 11/03/16 11:18 Dose: 500 mg Emtricitabine 200 mg/Tenofovir Disoproxil Fumarate 300 mg 0 mg PO QDAY JAMES Darunavir (Prezista) 800 mg PO QDAY [facility] Fluconazole (Diflucan) 200 mg PO ONCE ONE Stop: 11/03/16 13:01 Fluconazole (Diflucan) 100 mg PO QDAY [facility] Sodium Chloride (Nacl 0.45% 1000 Ml) 1,000 mls @ 42 mls/hr IV DIRECT JAMES Levetiracetam (Keppra) 500 mg PO BID [facility] Last Admin: 11/03/16 11:18 Dose: 500 mg Magnesium Hydroxide (Milk Of Magnesia) 30 ml PO Q4H PRN PRN Reason: Constipation Morphine Sulfate (Morphine) 2 mg IV Q4H PRN PRN Reason: Pain, Moderate (4-6) Last Admin: 11/03/16 11:17 Dose: 2 mg Ondansetron HCl (Zofran) 4 mg IV Q8H PRN PRN Reason: N/V unrelieved by Nadege Last Admin: 11/03/16 08:33 Dose: 4 mg Oxycodone/Acetaminophen (Percocet 5/325) 1 tab PO Q4H PRN PRN Reason: Pain, Moderate (4-6) Ritonavir (Norvir) 100 mg PO QDAY [facility] Exam - Constitutional Vitals: Temp Pulse Resp BP Pulse Ox 99.8 F H 82 18 106/56 99 11/03/16 08:15 11/03/16 08:15 11/03/16 08:15 11/03/16 08:15 11/03/16 08:15 Results - Labs CBC & Chem 7: 11/03/16 09:00 11/02/16 14:28 Labs: Abnormal lab results 11/03/16 Range/Units 09:00 Hgb 9.2 L (11.8-15.2) gm/dl Hct 27.1 L (35.5-45.6) %
[2016-11-03] MEDS ORDERED: EMTRIVA 200 MG, VIREAD 300 MG PO SCH (13:00)
[2016-11-03] MEDS ORDERED: DIFLUCAN PO ONE (13:30)
[2016-11-03] MEDS: PREZISTA PO SCH (14:00)
[2016-11-03] MEDS ORDERED: XYLOCAINE TOPICAL 4% TP ONE (14:00)
[2016-11-03] MEDS ORDERED: ZOVIRAX IV SCH (14:00)
[2016-11-03] MEDS: VIREAD PO SCH (14:30)
[2016-11-03] MEDS: EMTRIVA PO SCH (14:30)
[2016-11-03] MEDS: NORVIR PO SCH (15:24)
[2016-11-03] MEDS: ZOVIRAX IV SCH ×2 (15:24→22:00)
[2016-11-03] MEDS: NACL 0.9% IV SCH ×2 (15:24→22:00)
[2016-11-03] MEDS: PERCOCET 5/325 PO PRN (20:31)
[2016-11-03] MEDS: ACYCLOVIR TP SCH (22:21)
[2016-11-04] MEDS: ZOVIRAX IV SCH ×3 (05:51→21:33)
[2016-11-04] MEDS: NACL 0.9% IV SCH ×3 (05:51→21:33)
--- NOTE | 2016-11-04 06:01 | Consultation ---
HISTORY: This is a 36-year-old black male who presents to [facility] with the onset of seizures. He has a long history of seizures since childhood. These have recently worsened. He has been having passing out spells and was jerking which are witnessed. He does take Dilantin for this and he states that he has not missed any of his medications, but yet has continued to have seizures. He knows of no precipitating factors, he does not drink, does not take alcohol, does not take illicit drugs. He has a prior medical history of noted head trauma. He does not remember exactly what he was told when being a teenager as to why he was started on Dilantin. ALLERGIES: He has no known allergies. He does not have any aura warning or the spells occurring. PHYSICAL EXAMINATION: VITAL SIGNS: On my examination, his blood pressure is 118/74, O2 saturation is 100%, respiratory rate 16, pulse rate 86. He is afebrile at 98.6 degrees. NEUROLOGIC: He is fully alert, responsive. Affect is appropriate. Speech clear. Motor tone symmetrical. No tremors. No asterixis. No visual field cuts are present. No focal seizure activity is noted during the time I evaluated the patient and no abnormal blinking of the eyes is present. His speech is clear. Motor tone is symmetrical. IMPRESSION: Generalized seizure, but without any evidence of aura. Typically Dilantin is not terribly effective drug at this age, might suggest using Keppra as a substitute. I would nonetheless get an EEG, CT scan and MRI scan of the brain. The patient is also to be further assessed as whether there is any intercurrent infectious process. JOB# [id number] MITCH/NTS
[2016-11-04] MEDS: MORPHINE IV PRN ×3 (09:11→21:32)
[2016-11-04] MEDS: ZOFRAN IV PRN (09:12)
[2016-11-04] MEDS: ACYCLOVIR TP SCH ×3 (10:00→21:36)
[2016-11-04] MEDS: PREZISTA PO SCH (10:23)
[2016-11-04] MEDS: KEFLEX PO SCH ×2 (10:25→21:31)
[2016-11-04] MEDS: KEPPRA PO SCH ×2 (10:25→21:31)
[2016-11-04] MEDS: DIFLUCAN PO SCH (10:26)
[2016-11-04] MEDS: NORVIR PO SCH (10:26)
[2016-11-04] MEDS: EMTRIVA PO SCH (14:41)
[2016-11-04] MEDS: VIREAD PO SCH (14:42)
--- NOTE | 2016-11-04 15:43 | Gastroenterology Progress Note ---
Assessment and Plan GI: no further signs rectal bleeding - h/h stable - given medical issues and stability will defer scope at this time - no changes, will follow for now Subjective Date of service: 11/04/16 Interval history: - no rectal bleeding or other GI issues overnight Objective - Constitutional Vitals: Temp Pulse Resp BP Pulse Ox 99.3 F 86 20 118/56 100 11/03/16 23:00 11/04/16 08:00 11/04/16 08:00 11/04/16 08:00 11/04/16 08:00 General appearance: no acute distress - Respiratory Respiratory: bilateral: CTA - Cardiovascular Rhythm: regular Heart Sounds: Present: S1 & S2 - Gastrointestinal General gastrointestinal: Present: soft, non-tender - Labs CBC & Chem 7: 11/03/16 09:00 11/02/16 14:28
--- NOTE | 2016-11-04 17:21 | Progress Note ---
Assessment and Plan - Patient Problems (1) Herpes, genital Current Visit: Yes Status: Acute Qualifiers: Herpes simplex infection site: H Plan to address problem: 1. Continue current regimen of IV Acyclovir and topical Zovirax. 2. Follow renal function closely. Encouraging hydration. 3. Will change to Valganciclovir if limited improvement on current regimen. (2) AIDS Current Visit: Yes Status: Acute Plan to address problem: Patient is started on ARVs and PCP prophylaxis. Cryptococcal antigen is negative. (3) Thrush, oral Current Visit: Yes Status: Acute Plan to address problem: Continue Fluconazole to complete 10-14 days. Subjective Date of service: 11/04/16 Principal diagnosis: Genital HSV Interval history: Improvement in pain and odor. Objective - Constitutional Vitals: Vital Signs Temp Pulse Resp BP Pulse Ox 100.0 F H 91 H 20 101/57 100 11/04/16 16:20 11/04/16 16:20 11/04/16 16:20 11/04/16 16:20 11/04/16 16:20 Temperature -Last 24 Hours Temperature 100.0 F Temperature 99.3 F General appearance: Present: no acute distress, well-nourished - EENT ENT: thrush - Respiratory Respiratory effort: normal Respiratory: bilateral: CTA - Cardiovascular Rhythm: regular Heart Sounds: Present: S1 & S2 - Gastrointestinal General gastrointestinal: Present: soft, non-distended - Genitourinary Male genitourinary: tender (minimal change intervally in genital lesions, decreased odor) - Integumentary Integumentary: no rash - Psychiatric Psychiatric: appropriate mood/affect - Labs CBC & Chem 7: 11/03/16 09:00 11/02/16 14:28 Labs: Microbiology 11/02/16 14:28 Serum Cryptococcal Antigen - Final
[2016-11-05] MEDS: MORPHINE IV PRN ×5 (01:57→20:32)
[2016-11-05] MEDS: NACL 0.9% IV SCH ×3 (06:20→22:51)
[2016-11-05] MEDS: ZOVIRAX IV SCH ×3 (06:20→22:51)
[2016-11-05 06:50] LABS: Anion Gap 16 mmol/L; BUN/Creatinine Ratio 11.25; Blood Urea Nitrogen 9 mg/dL (9-20); Calcium 8.7 mg/dL (8.4-10.2); Carbon Dioxide 25 mmol/L (22-30); Chloride 100.4 mmol/L (98-107); Glucose 96 mg/dL (75-100); Potassium 3.8 mmol/L (3.6-5.0); Sodium 138 mmol/L (137-145)
[2016-11-05 08:23] LABS: Hematocrit 26.3 % (35.5-45.6); Hemoglobin 8.7 gm/dl (11.8-15.2); Mean Corpuscular HGB Conc 33 % (32-34); Mean Corpuscular Hemoglobin 29 pg (28-32); Mean Corpuscular Volume 87 fl (84-94); Platelet Count 530 K/mm3 (140-440); Red Blood Count 3.02 M/mm3 (3.65-5.03); White Blood Count 6.7 K/mm3 (4.5-11.0)
[2016-11-05 09:26] LABS: Basophils % (Manual) 0 % (0.0-1.8); Blastocytes % (Manual) 0 %; Diff Status Complete; Platelet Estimate Appears Increased; RBC Morphology Normal; Smudge Cells Few
[2016-11-05] MEDS: DIFLUCAN PO SCH (09:49)
[2016-11-05] MEDS: PREZISTA PO SCH (09:49)
[2016-11-05] MEDS: KEFLEX PO SCH ×2 (09:49→21:52)
[2016-11-05] MEDS: KEPPRA PO SCH ×2 (09:50→21:52)
[2016-11-05] MEDS: VIREAD PO SCH (09:51)
[2016-11-05] MEDS: EMTRIVA PO SCH (09:51)
[2016-11-05] MEDS: NORVIR PO SCH (09:51)
[2016-11-05] MEDS: ACYCLOVIR TP SCH ×2 (09:53→21:53)
[2016-11-05] MEDS ORDERED: ATIVAN IV NR (10:30)
[2016-11-05] MEDS: ZOFRAN IV PRN (10:38)
--- NOTE | 2016-11-05 11:31 | Gastroenterology Progress Note ---
Assessment and Plan 1. GI bleed 2. hematochezia 3. rectal pain 4. rectal wound 5. status epileptious 6. AIDS -Temp 100.1 -WBC-WNL -HGB 8.7- trending down- most likely due to seropurulent fluid from gluteal fold ulcerations -pt denies any further rectal bleeding or active signs of bleeding overnight or this am, reports BM x 1 this am with brown stool -continue to monitor H&H and transfuse as needed -ID following- pt receiving IV Acyclovir and topical zovirax for genital herpes (extensive ulcerations noted on gluteal fold) -continue supportive care -will defer colonoscopy at this time until ID issues resolved, unless overt bleeding develops -will follow Subjective Date of service: 11/05/16 Principal diagnosis: GI bleed Interval history: Patient resting in bed. No acute distress. Denies active signs of bleeding overnight or this am. Reports BM x 1 this am with brown stool w/o blood. States his rectal pain is slightly improved. Gluteal fold wound/ulcerations noted to still be draining seropurulent malodorous fluid. Objective - Constitutional Vitals: Temp Pulse Resp BP Pulse Ox 100.1 F H 94 H 20 114/64 97 11/05/16 08:00 11/05/16 08:00 11/05/16 08:00 11/05/16 08:00 11/05/16 08:00 General appearance: no acute distress - EENT Eyes: PERRL, EOM intact ENT: hearing intact - Neck Neck: supple, normal ROM - Respiratory Respiratory: bilateral: CTA - Cardiovascular Rhythm: regular Heart Sounds: Present: S1 & S2 - Extremities Extremities: No edema - Gastrointestinal General gastrointestinal: Present: soft, non-tender, non-distended, normal bowel sounds Rectal Exam: other (extensive ulcerations in the entirety of the gluteal fold with seropurulent, malodorous drainage) - Integumentary Integumentary: Present: warm, dry - Neurologic Neurological: alert and oriented x3 - Psychiatric Psychiatric: appropriate mood/affect, cooperative - Labs CBC & Chem 7: 11/05/16 07:57 11/05/16 05:19 Labs: Laboratory Results - last 24 hr 11/05/16 11/05/16 05:19 07:57 WBC 6.7 RBC 3.02 L Hgb 8.7 L Hct 26.3 L MCV 87 MCH 29 MCHC 33 RDW 13.0 L Plt Count 530 H Lymph % (Auto) [employer] Placer % (Auto) [employer]ant Eos % (Auto) [employer]ant Baso % (Auto) [employer] Consultant Lymph # [employer]ant Placer # [employer] Consultant Eos # [employer] Consultant Baso # [employer]ant Add Manual Diff Complete Total Counted 100 Seg Neutrophils % [employer] Seg Neuts % (Manual) 56.0 Band Neutrophils % 1.0 Lymphocytes % (Manual) 22.0 Reactive Lymphs % (Man) 0 Monocytes % (Manual) 20.0 H Eosinophils % (Manual) 1.0 Basophils % (Manual) 0 Metamyelocytes % 0 Myelocytes % 0 Promyelocytes % 0 Blast Cells % 0 Nucleated RBC % Not Reportable Seg Neutrophils # [employer] Seg Neutrophils # Man 3.8 Band Neutrophils # 0.1 Lymphocytes # (Manual) 1.5 Abs React Lymphs (Man) 0.0 Monocytes # (Manual) 1.3 H Eosinophils # (Manual) 0.1 Basophils # (Manual) 0.0 Metamyelocytes # 0.0 Myelocytes # 0.0 Promyelocytes # 0.0 Blast Cells # 0.0 WBC Morphology Not Reportable Hypersegmented Neuts Not Reportable Hyposegmented Neuts Not Reportable Hypogranular Neuts Not Reportable Smudge Cells Few Toxic Granulation Not Reportable Toxic Vacuolation Not Reportable Dohle Bodies Not Reportable Pelger-Huet Anomaly Not Reportable Kasie Rods Not Reportable Platelet Estimate Appears increased Clumped Platelets Not Reportable Plt Clumps, EDTA Not Reportable Large Platelets Not Reportable Giant Platelets Not Reportable Platelet Satelliting Not Reportable Plt Morphology Comment Not Reportable RBC Morphology Normal Dimorphic RBCs Not Reportable Polychromasia Not Reportable Hypochromasia Not Reportable Poikilocytosis Not Reportable Anisocytosis Not Reportable Microcytosis Not Reportable Macrocytosis Not Reportable Spherocytes Not Reportable Pappenheimer Bodies Not Reportable Sickle Cells Not Reportable Target Cells Not Reportable Tear Drop Cells Not Reportable Ovalocytes Not Reportable Helmet Cells Not Reportable Yepez-Winooski Bodies Not Reportable Jeannette Rings Not Reportable Darryl Cells Not Reportable Bite Cells Not Reportable Crenated Cell Not Reportable Elliptocytes Not Reportable Acanthocytes (Spur) Not Reportable Rouleaux Not Reportable Hemoglobin C Crystals Not Reportable Schistocytes Not Reportable Malaria parasites Not Reportable Jaime Bodies Not Reportable Hem Pathologist Commnt No Sodium 138 Potassium 3.8 Chloride 100.4 Carbon Dioxide 25 Anion Gap 16 BUN 9 Creatinine 0.8 Estimated GFR > 60 BUN/Creatinine Ratio 11.25 Glucose 96 Calcium 8.7
--- NOTE | 2016-11-05 12:10 | Progress Note ---
Assessment and Plan - Patient Problems (1) Herpes, genital Current Visit: Yes Status: Acute Qualifiers: Herpes simplex infection site: H Plan to address problem: Continue Acyclovir IV. Once lesions begin to crust, can transition to oral therapy, i.e. Valtrex 1g PO q8h to complete an ~ 10-day course. Continue topical Zovirax. (2) AIDS Current Visit: Yes Status: Acute Plan to address problem: Continue ARVs and PjP prophylaxis. (3) Thrush, oral Current Visit: Yes Status: Acute Plan to address problem: Completing a 10-14-day course of Fluconazole/ Subjective Date of service: 11/05/16 Principal diagnosis: Genital HSV Outbreak Interval history: Intermittent, low-grade fevers. Continued local pain. Objective - Constitutional Vitals: Vital Signs Temp Pulse Resp BP Pulse Ox 100.1 F H 94 H 20 114/64 97 11/05/16 08:00 11/05/16 08:00 11/05/16 08:00 11/05/16 08:00 11/05/16 08:00 Temperature -Last 24 Hours Temperature 100.1 F Temperature 100.4 F Temperature 100.0 F General appearance: Present: no acute distress (eating a hamburger/ fries) - EENT Eyes: no conjunctival injection - Respiratory Respiratory: bilateral: CTA - Cardiovascular Rhythm: regular Heart Sounds: Present: S1 & S2 Extremities: No edema - Gastrointestinal General gastrointestinal: Present: soft, non-tender, non-distended Rectal Exam: other (continued malodorous, serous drainage from gluteal ulcers and penile ulcer, slightly air drier than previous exam and strength of odor is also improved, no significant crusting is seen) - Neurologic Neurologic: no focal deficits - Psychiatric Psychiatric: appropriate mood/affect - Labs CBC & Chem 7: 11/05/16 07:57 11/05/16 05:19 Labs: Abnormal lab results 11/05/16 Range/Units 07:57 RBC 3.02 L (3.65-5.03) M/mm3 Hgb 8.7 L (11.8-15.2) gm/dl Hct 26.3 L (35.5-45.6) % RDW 13.0 L (13.2-15.2) % Plt Count 530 H (140-440) K/mm3 Monocytes % (Manual) 20.0 H (0.0-7.3) % Monocytes # (Manual) 1.3 H (0.0-0.8) K/mm3 Microbiology 11/02/16 14:28 Serum Cryptococcal Antigen - Final
--- NOTE | 2016-11-05 16:58 | Magnetic Resonance Report ---
MRI of the brain without contrast. History: Seizure. Procedure: Routine brain protocol without contrast. Findings: The ventricles are normal in size and contour. In the left superior callie, there is a 4 mm in diameter ovoid shaped area of hyperintense T2 signal which demonstrates T2 shine through on ADC map images. No other abnormalities are seen in the posterior fossa. There are no masses or extra-axial collections. There is no restricted diffusion. The jamison-white matter junction is normal. Pituitary gland is unremarkable. Mild increased signal is seen in the right mastoid air cells. Impression: Tiny chronic lacunar infarct in the left callie. There are no other significant intracranial findings. 2. Mild chronic right mastoiditis.
[2016-11-06] MEDS: MORPHINE IV PRN ×4 (02:06→23:11)
[2016-11-06] MEDS: NACL 0.9% IV SCH (05:22)
[2016-11-06] MEDS: ZOVIRAX IV SCH (05:22)
[2016-11-06] MEDS: PERCOCET 5/325 PO PRN (05:28)
--- NOTE | 2016-11-06 08:45 | Progress Note ---
Assessment and Plan - Patient Problems (1) Herpes, genital Current Visit: Yes Status: Acute Qualifiers: Herpes simplex infection site: H Plan to address problem: 1. 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 Monitor renal function closely. 2. Plan is to transition to oral therapy (Valcyte??) as previously noted once lesions have begun to crust. 3. I do not believe this patient is an ideal candidate for home-based IV antimicrobials. (2) AIDS Current Visit: Yes Status: Acute Plan to address problem: Continue HAART. He will resume Descovy and Prezcobix as his home regimen. (3) Thrush, oral Current Visit: Yes Status: Acute Plan to address problem: Completing a 10-14-day Fluconazole course. Subjective Date of service: 11/06/16 Principal diagnosis: Genital HSV Outbreak Interval history: Little improvement of genital lesions. Afebrile, stable without new events. Objective - Constitutional Vitals: Vital Signs Temp Pulse Resp BP Pulse Ox 97.8 F 87 20 107/63 99 11/06/16 08:00 11/06/16 08:00 11/06/16 08:00 11/06/16 08:00 11/06/16 08:00 Temperature -Last 24 Hours Temperature 97.8 F Temperature 98.0 F Temperature 100.3 F General appearance: Present: no acute distress, well-nourished - Respiratory Respiratory effort: normal Respiratory: bilateral: CTA - Cardiovascular Rhythm: regular Heart Sounds: Present: S1 & S2 Extremities: No edema - Gastrointestinal General gastrointestinal: Present: soft, non-tender, non-distended Rectal Exam: other (lesions throughout gluteal fold with minimal change in odor or level of drainage) - Genitourinary Male genitourinary: penile edema (no significant interval change in penile or gluteal lesions) - Integumentary Integumentary: no rash - Neurologic Neurologic: no focal deficits, moves all extremities - Psychiatric Psychiatric: appropriate mood/affect - Labs CBC & Chem 7: 11/05/16 07:57 11/05/16 05:19 Labs: Abnormal lab results 11/05/16 Range/Units 07:57 RBC 3.02 L (3.65-5.03) M/mm3 Hgb 8.7 L (11.8-15.2) gm/dl Hct 26.3 L (35.5-45.6) % RDW 13.0 L (13.2-15.2) % Plt Count 530 H (140-440) K/mm3 Monocytes % (Manual) 20.0 H (0.0-7.3) % Monocytes # (Manual) 1.3 H (0.0-0.8) K/mm3 Microbiology 11/02/16 14:28 Serum Cryptococcal Antigen - Final - Imaging and cardiology MRI - head: report reviewed (tiny chronic lacunar infarcts left callie, also mild right mastoiditis)
[2016-11-06] MEDS: PREZISTA PO SCH (12:35)
[2016-11-06] MEDS: KEFLEX PO SCH ×2 (12:36→21:47)
[2016-11-06] MEDS: DIFLUCAN PO SCH (12:36)
[2016-11-06] MEDS: EMTRIVA PO SCH (12:36)
[2016-11-06] MEDS: KEPPRA PO SCH ×2 (12:36→21:47)
[2016-11-06] MEDS: VIREAD PO SCH (12:36)
[2016-11-06] MEDS: NORVIR PO SCH (12:37)
[2016-11-06] MEDS ORDERED: CYTOVENE 500 MG in NACL 0.9% 250ML 250 ML IV SCH (14:00)
--- NOTE | 2016-11-06 17:28 | Progress Note ---
Assessment and Plan Assessment and plan: 36 YO Male with [place], CAD S/P Stent placement, Seizure Disorder, AIDS, HSV presents with blood in his stool. Also, the patient was told by his roommate he had a generalized tonic-clonic seizure. Patient has large amounts of ulcers in his genital area due to herpes and is a source of the blood that he saw in the toilet. Herpes, genital Infectious disease input appreciated, continue antivirals, Patient will need to continue IV antivirals and so all the lesions crust over He is a poor candidate for home IV antimicrobials, also patient has refused home healthy as he does not want anyone coming to his house AIDS CD4 34 in September 2016 Continue HAART. Infectious disease input appreciated. Thrush, oral Current Visit: Yes Status: Acute Plan to address problem: Completing a 10-14-day Fluconazole course. Her ID Status epilepticus Normal CT of the head Neurology input appreciated MRI of the brain pending Continue Keppra Metabolic Encephalopathy acute Most likely due to post ictal state, now resolved Urinary Tract Infection continue Keflex, will need 7-10 day course ; Hematochezia/ GIB most likely due to rectal ulcer, , hemoglobin is stable. DVT prophylaxis Lovenox History Interval history: He continues to complain of pain and drainage from his genital rectal ulcers. Denies fevers, denies chills, denies confusion, denies focal weakness, denies any further episodes of seizure Hospitalist Physical - Physical exam Narrative exam: General: Patient appears well in no distress HEENT: MMM, EOMI cardiac: S1-S2 heard lungs: clear to auscultation, abdomen: soft, nontender, nondistended bowel sounds positive extremities: no edema clubbing or cyanosis Multiple genital and rectal ulcers which there is drainage and foul odor Skin: no rash or lesion Neuro: no focal deficit Psych: appropriate behavior and mood, cognition intact - Constitutional Vitals: Temp Pulse Resp BP Pulse Ox 98.4 F 87 20 117/61 98 11/06/16 16:00 11/06/16 16:00 11/06/16 16:00 11/06/16 16:00 11/06/16 16:00 General appearance: Present: no acute distress, well-nourished Results - Labs CBC & Chem 7: 11/05/16 07:57 11/05/16 05:19 Labs: Laboratory Last Values WBC 6.7 K/mm3 (4.5-11.0) 11/05/16 07:57 RBC 3.02 M/mm3 (3.65-5.03) L 11/05/16 07:57 Hgb 8.7 gm/dl (11.8-15.2) L 11/05/16 07:57 Hct 26.3 % (35.5-45.6) L 11/05/16 07:57 MCV 87 fl (84-94) 11/05/16 07:57 MCH 29 pg (28-32) 11/05/16 07:57 MCHC 33 % (32-34) 11/05/16 07:57 RDW 13.0 % (13.2-15.2) L 11/05/16 07:57 Plt Count 530 K/mm3 (140-440) H 11/05/16 07:57 Lymph % (Auto) Aerosol Supervisor 11/05/16 07:57 [place] % (Auto) Aerosol Supervisor 11/05/16 07:57 Eos % (Auto) Aerosol Supervisor 11/05/16 07:57 Baso % (Auto) Aerosol Supervisor 11/05/16 07:57 Lymph # Aerosol Supervisor 11/05/16 07:57 [place] # Aerosol Supervisor 11/05/16 07:57 Eos # Aerosol Supervisor 11/05/16 07:57 Baso # Aerosol Supervisor 11/05/16 07:57 Add Manual Diff Complete 11/05/16 07:57 Total Counted 100 11/05/16 07:57 Seg Neutrophils % Aerosol Supervisor 11/05/16 07:57 Seg Neuts % (Manual) 56.0 % (40.0-70.0) 11/05/16 07:57 Band Neutrophils % 1.0 % 11/05/16 07:57 Lymphocytes % (Manual) 22.0 % (13.4-35.0) 11/05/16 07:57 Reactive Lymphs % (Man) 0 % 11/05/16 07:57 Monocytes % (Manual) 20.0 % (0.0-7.3) H 11/05/16 07:57 Eosinophils % (Manual) 1.0 % (0.0-4.3) 11/05/16 07:57 Basophils % (Manual) 0 % (0.0-1.8) 11/05/16 07:57 Metamyelocytes % 0 % 11/05/16 07:57 Myelocytes % 0 % 11/05/16 07:57 Promyelocytes % 0 % 11/05/16 07:57 Blast Cells % 0 % 11/05/16 07:57 Nucleated RBC % Not Reportable 11/05/16 07:57 Seg Neutrophils # Aerosol Supervisor 11/05/16 07:57 Seg Neutrophils # Man 3.8 K/mm3 (1.8-7.7) 11/05/16 07:57 Band Neutrophils # 0.1 K/mm3 11/05/16 07:57 Lymphocytes # (Manual) 1.5 K/mm3 (1.2-5.4) 11/05/16 07:57 Abs React Lymphs (Man) 0.0 K/mm3 11/05/16 07:57 Monocytes # (Manual) 1.3 K/mm3 (0.0-0.8) H 11/05/16 07:57 Eosinophils # (Manual) 0.1 K/mm3 (0.0-0.4) 11/05/16 07:57 Basophils # (Manual) 0.0 K/mm3 (0.0-0.1) 11/05/16 07:57 Metamyelocytes # 0.0 K/mm3 11/05/16 07:57 Myelocytes # 0.0 K/mm3 11/05/16 07:57 Promyelocytes # 0.0 K/mm3 11/05/16 07:57 Blast Cells # 0.0 K/mm3 11/05/16 07:57 WBC Morphology Not Reportable 11/05/16 07:57 Hypersegmented Neuts Not Reportable 11/05/16 07:57 Hyposegmented Neuts Not Reportable 11/05/16 07:57 Hypogranular Neuts Not Reportable 11/05/16 07:57 Smudge Cells Few 11/05/16 07:57 Toxic Granulation Not Reportable 11/05/16 07:57 Toxic Vacuolation Not Reportable 11/05/16 07:57 Dohle Bodies Not Reportable 11/05/16 07:57 Pelger-Huet Anomaly Not Reportable 11/05/16 07:57 Kasie Rods Not Reportable 11/05/16 07:57 Platelet Estimate Appears increased 11/05/16 07:57 Clumped Platelets Not Reportable 11/05/16 07:57 Plt Clumps, EDTA Not Reportable 11/05/16 07:57 Large Platelets Not Reportable 11/05/16 07:57 Giant Platelets Not Reportable 11/05/16 07:57 Platelet Satelliting Not Reportable 11/05/16 07:57 Plt Morphology Comment Not Reportable 11/05/16 07:57 RBC Morphology Normal 11/05/16 07:57 Dimorphic RBCs Not Reportable 11/05/16 07:57 Polychromasia Not Reportable 11/05/16 07:57 Hypochromasia Not Reportable 11/05/16 07:57 Poikilocytosis Not Reportable 11/05/16 07:57 Anisocytosis Not Reportable 11/05/16 07:57 Microcytosis Not Reportable 11/05/16 07:57 Macrocytosis Not Reportable 11/05/16 07:57 Spherocytes Not Reportable 11/05/16 07:57 Pappenheimer Bodies Not Reportable 11/05/16 07:57 Sickle Cells Not Reportable 11/05/16 07:57 Target Cells Not Reportable 11/05/16 07:57 Tear Drop Cells Not Reportable 11/05/16 07:57 Ovalocytes Not Reportable 11/05/16 07:57 Helmet Cells Not Reportable 11/05/16 07:57 Yepez-[place] Bodies Not Reportable 11/05/16 07:57 [place] Rings Not Reportable 11/05/16 07:57 Darryl Cells Not Reportable 11/05/16 07:57 Bite Cells Not Reportable 11/05/16 07:57 Crenated Cell Not Reportable 11/05/16 07:57 Elliptocytes Not Reportable 11/05/16 07:57 Acanthocytes (Spur) Not Reportable 11/05/16 07:57 Rouleaux Not Reportable 11/05/16 07:57 Hemoglobin C Crystals Not Reportable 11/05/16 07:57 Schistocytes Not Reportable 11/05/16 07:57 Malaria parasites Not Reportable 11/05/16 07:57 Jaime Bodies Not Reportable 11/05/16 07:57 Hem Pathologist Commnt No 11/05/16 07:57 Sodium 138 mmol/L (137-145) 11/05/16 05:19 Potassium 3.8 mmol/L (3.6-5.0) 11/05/16 05:19 Chloride 100.4 mmol/L (98-107) 11/05/16 05:19 Carbon Dioxide 25 mmol/L (22-30) 11/05/16 05:19 Anion Gap 16 mmol/L 11/05/16 05:19 BUN 9 mg/dL (9-20) 11/05/16 05:19 Creatinine 0.8 mg/dL (0.8-1.5) 11/05/16 05:19 Estimated GFR > 60 ml/min 11/05/16 05:19 BUN/Creatinine Ratio 11.25 % 11/05/16 05:19 Glucose 96 mg/dL (75-100) 11/05/16 05:19 POC Glucose 111 (70-105) H 11/02/16 14:21 Calcium 8.7 mg/dL (8.4-10.2) 11/05/16 05:19 Total Bilirubin 0.30 mg/dL (0.1-1.2) 11/02/16 14:28 AST 17 units/L (5-40) 11/02/16 14:28 ALT 7 units/L (7-56) 11/02/16 14:28 Alkaline Phosphatase 100 units/L (35-129) 11/02/16 14:28 Troponin T < 0.010 ng/mL (0.00-0.029) 11/02/16 20:20 Total Protein 7.8 g/dL (6.3-8.2) 11/02/16 14:28 Albumin 3.1 g/dL (3.9-5) L 11/02/16 14:28 Albumin/Globulin Ratio 0.7 % 11/02/16 14:28 Urine Color Yellow (Yellow) 11/02/16 16:34 Urine Turbidity Clear (Clear) 11/02/16 16:34 Urine pH 5.0 (5.0-7.0) 11/02/16 16:34 Ur Specific [place] 1.027 (1.003-1.030) 11/02/16 16:34 Urine Protein 30 mg/dl mg/dL (Negative) 11/02/16 16:34 Urine Glucose (UA) Neg mg/dL (Negative) 11/02/16 16:34 Urine Ketones Neg mg/dL (Negative) 11/02/16 16:34 Urine Blood Neg (Negative) 11/02/16 16:34 Urine Nitrite Neg (Negative) 11/02/16 16:34 Urine Bilirubin Neg (Negative) 11/02/16 16:34 Urine Urobilinogen 4.0 mg/dL (<2.0) 11/02/16 16:34 Ur Leukocyte Esterase Mod (Negative) 11/02/16 16:34 Urine WBC (Auto) 63.0 /HPF (0.0-6.0) H 11/02/16 16:34 Urine RBC (Auto) 16.0 /HPF (0.0-6.0) 11/02/16 16:34 U Epithel Cells (Auto) 5.0 /HPF (0-13.0) 11/02/16 16:34 Urine Mucus Few /HPF 11/02/16 16:34 Phenytoin 0.8 mg/L (10.0-20.0) L 11/02/16 14:28 Valproic Acid < 2.8 ug/mL (50-100) L 11/02/16 14:28
--- NOTE | 2016-11-06 17:39 | Progress Note ---
Assessment and Plan Assessment and plan: 36 YO Male with [place], CAD S/P Stent placement, Seizure Disorder, AIDS, HSV presents with blood in his stool. Also, the patient was told by his roommate he had a generalized tonic-clonic seizure. Patient has large amounts of ulcers in his genital area due to herpes and is a source of the blood that he saw in the toilet. Herpes, genital Infectious disease input appreciated, continue antivirals, Patient will need to continue IV antivirals and so all the lesions crust over He is a poor candidate for home IV antimicrobials, also patient has refused home healthy as he does not want anyone coming to his house AIDS CD4 34 in September 2016 Continue HAART. Infectious disease input appreciated. Thrush, oral Current Visit: Yes Status: Acute Plan to address problem: Completing a 10-14-day Fluconazole course. Her ID Status epilepticus Normal CT of the head Neurology input appreciated MRI brain showed Tiny chronic lacunar infarct in the left callie. There is no other significant intracranial finding. Continue Keppra Metabolic Encephalopathy acute Most likely due to post ictal state, now resolved Urinary Tract Infection continue Keflex, will need 7-10 day course ; Hematochezia/ GIB most likely due to rectal ulcer, , hemoglobin is stable. DVT prophylaxis Lovenox History Interval history: He continues to complain of pain and drainage from his genital rectal ulcers. Denies fevers, denies chills, denies confusion, denies focal weakness, denies any further episodes of seizure Hospitalist Physical - Physical exam Narrative exam: General: Patient appears well in no distress HEENT: MMM, EOMI cardiac: S1-S2 heard lungs: clear to auscultation, abdomen: soft, nontender, nondistended bowel sounds positive extremities: no edema clubbing or cyanosis Multiple genital and rectal ulcers which there is drainage and foul odor Skin: no rash or lesion Neuro: no focal deficit Psych: appropriate behavior and mood, cognition intact - Constitutional Vitals: Temp Pulse Resp BP Pulse Ox 98.4 F 87 20 117/61 98 11/06/16 16:00 11/06/16 16:00 11/06/16 16:00 11/06/16 16:00 11/06/16 16:00 General appearance: Present: no acute distress, well-nourished Results - Labs CBC & Chem 7: 11/05/16 07:57 11/05/16 05:19 Labs: Laboratory Last Values WBC 6.7 K/mm3 (4.5-11.0) 11/05/16 07:57 RBC 3.02 M/mm3 (3.65-5.03) L 11/05/16 07:57 Hgb 8.7 gm/dl (11.8-15.2) L 11/05/16 07:57 Hct 26.3 % (35.5-45.6) L 11/05/16 07:57 MCV 87 fl (84-94) 11/05/16 07:57 MCH 29 pg (28-32) 11/05/16 07:57 MCHC 33 % (32-34) 11/05/16 07:57 RDW 13.0 % (13.2-15.2) L 11/05/16 07:57 Plt Count 530 K/mm3 (140-440) H 11/05/16 07:57 Lymph % (Auto) Marine Drafter 11/05/16 07:57 [place] % (Auto) Marine Drafter 11/05/16 07:57 Eos % (Auto) Marine Drafter 11/05/16 07:57 Baso % (Auto) Marine Drafter 11/05/16 07:57 Lymph # Marine Drafter 11/05/16 07:57 [place] # Marine Drafter 11/05/16 07:57 Eos # Marine Drafter 11/05/16 07:57 Baso # Marine Drafter 11/05/16 07:57 Add Manual Diff Complete 11/05/16 07:57 Total Counted 100 11/05/16 07:57 Seg Neutrophils % Marine Drafter 11/05/16 07:57 Seg Neuts % (Manual) 56.0 % (40.0-70.0) 11/05/16 07:57 Band Neutrophils % 1.0 % 11/05/16 07:57 Lymphocytes % (Manual) 22.0 % (13.4-35.0) 11/05/16 07:57 Reactive Lymphs % (Man) 0 % 11/05/16 07:57 Monocytes % (Manual) 20.0 % (0.0-7.3) H 11/05/16 07:57 Eosinophils % (Manual) 1.0 % (0.0-4.3) 11/05/16 07:57 Basophils % (Manual) 0 % (0.0-1.8) 11/05/16 07:57 Metamyelocytes % 0 % 11/05/16 07:57 Myelocytes % 0 % 11/05/16 07:57 Promyelocytes % 0 % 11/05/16 07:57 Blast Cells % 0 % 11/05/16 07:57 Nucleated RBC % Not Reportable 11/05/16 07:57 Seg Neutrophils # Marine Drafter 11/05/16 07:57 Seg Neutrophils # Man 3.8 K/mm3 (1.8-7.7) 11/05/16 07:57 Band Neutrophils # 0.1 K/mm3 11/05/16 07:57 Lymphocytes # (Manual) 1.5 K/mm3 (1.2-5.4) 11/05/16 07:57 Abs React Lymphs (Man) 0.0 K/mm3 11/05/16 07:57 Monocytes # (Manual) 1.3 K/mm3 (0.0-0.8) H 11/05/16 07:57 Eosinophils # (Manual) 0.1 K/mm3 (0.0-0.4) 11/05/16 07:57 Basophils # (Manual) 0.0 K/mm3 (0.0-0.1) 11/05/16 07:57 Metamyelocytes # 0.0 K/mm3 11/05/16 07:57 Myelocytes # 0.0 K/mm3 11/05/16 07:57 Promyelocytes # 0.0 K/mm3 11/05/16 07:57 Blast Cells # 0.0 K/mm3 11/05/16 07:57 WBC Morphology Not Reportable 11/05/16 07:57 Hypersegmented Neuts Not Reportable 11/05/16 07:57 Hyposegmented Neuts Not Reportable 11/05/16 07:57 Hypogranular Neuts Not Reportable 11/05/16 07:57 Smudge Cells Few 11/05/16 07:57 Toxic Granulation Not Reportable 11/05/16 07:57 Toxic Vacuolation Not Reportable 11/05/16 07:57 Dohle Bodies Not Reportable 11/05/16 07:57 Pelger-Huet Anomaly Not Reportable 11/05/16 07:57 Kasie Rods Not Reportable 11/05/16 07:57 Platelet Estimate Appears increased 11/05/16 07:57 Clumped Platelets Not Reportable 11/05/16 07:57 Plt Clumps, EDTA Not Reportable 11/05/16 07:57 Large Platelets Not Reportable 11/05/16 07:57 Giant Platelets Not Reportable 11/05/16 07:57 Platelet Satelliting Not Reportable 11/05/16 07:57 Plt Morphology Comment Not Reportable 11/05/16 07:57 RBC Morphology Normal 11/05/16 07:57 Dimorphic RBCs Not Reportable 11/05/16 07:57 Polychromasia Not Reportable 11/05/16 07:57 Hypochromasia Not Reportable 11/05/16 07:57 Poikilocytosis Not Reportable 11/05/16 07:57 Anisocytosis Not Reportable 11/05/16 07:57 Microcytosis Not Reportable 11/05/16 07:57 Macrocytosis Not Reportable 11/05/16 07:57 Spherocytes Not Reportable 11/05/16 07:57 Pappenheimer Bodies Not Reportable 11/05/16 07:57 Sickle Cells Not Reportable 11/05/16 07:57 Target Cells Not Reportable 11/05/16 07:57 Tear Drop Cells Not Reportable 11/05/16 07:57 Ovalocytes Not Reportable 11/05/16 07:57 Helmet Cells Not Reportable 11/05/16 07:57 Yepez-[place] Bodies Not Reportable 11/05/16 07:57 [place] Rings Not Reportable 11/05/16 07:57 Darryl Cells Not Reportable 11/05/16 07:57 Bite Cells Not Reportable 11/05/16 07:57 Crenated Cell Not Reportable 11/05/16 07:57 Elliptocytes Not Reportable 11/05/16 07:57 Acanthocytes (Spur) Not Reportable 11/05/16 07:57 Rouleaux Not Reportable 11/05/16 07:57 Hemoglobin C Crystals Not Reportable 11/05/16 07:57 Schistocytes Not Reportable 11/05/16 07:57 Malaria parasites Not Reportable 11/05/16 07:57 Jaime Bodies Not Reportable 11/05/16 07:57 Hem Pathologist Commnt No 11/05/16 07:57 Sodium 138 mmol/L (137-145) 11/05/16 05:19 Potassium 3.8 mmol/L (3.6-5.0) 11/05/16 05:19 Chloride 100.4 mmol/L (98-107) 11/05/16 05:19 Carbon Dioxide 25 mmol/L (22-30) 11/05/16 05:19 Anion Gap 16 mmol/L 11/05/16 05:19 BUN 9 mg/dL (9-20) 11/05/16 05:19 Creatinine 0.8 mg/dL (0.8-1.5) 11/05/16 05:19 Estimated GFR > 60 ml/min 11/05/16 05:19 BUN/Creatinine Ratio 11.25 % 11/05/16 05:19 Glucose 96 mg/dL (75-100) 11/05/16 05:19 POC Glucose 111 (70-105) H 11/02/16 14:21 Calcium 8.7 mg/dL (8.4-10.2) 11/05/16 05:19 Total Bilirubin 0.30 mg/dL (0.1-1.2) 11/02/16 14:28 AST 17 units/L (5-40) 11/02/16 14:28 ALT 7 units/L (7-56) 11/02/16 14:28 Alkaline Phosphatase 100 units/L (35-129) 11/02/16 14:28 Troponin T < 0.010 ng/mL (0.00-0.029) 11/02/16 20:20 Total Protein 7.8 g/dL (6.3-8.2) 11/02/16 14:28 Albumin 3.1 g/dL (3.9-5) L 11/02/16 14:28 Albumin/Globulin Ratio 0.7 % 11/02/16 14:28 Urine Color Yellow (Yellow) 11/02/16 16:34 Urine Turbidity Clear (Clear) 11/02/16 16:34 Urine pH 5.0 (5.0-7.0) 11/02/16 16:34 Ur Specific [place] 1.027 (1.003-1.030) 11/02/16 16:34 Urine Protein 30 mg/dl mg/dL (Negative) 11/02/16 16:34 Urine Glucose (UA) Neg mg/dL (Negative) 11/02/16 16:34 Urine Ketones Neg mg/dL (Negative) 11/02/16 16:34 Urine Blood Neg (Negative) 11/02/16 16:34 Urine Nitrite Neg (Negative) 11/02/16 16:34 Urine Bilirubin Neg (Negative) 11/02/16 16:34 Urine Urobilinogen 4.0 mg/dL (<2.0) 11/02/16 16:34 Ur Leukocyte Esterase Mod (Negative) 11/02/16 16:34 Urine WBC (Auto) 63.0 /HPF (0.0-6.0) H 11/02/16 16:34 Urine RBC (Auto) 16.0 /HPF (0.0-6.0) 11/02/16 16:34 U Epithel Cells (Auto) 5.0 /HPF (0-13.0) 11/02/16 16:34 Urine Mucus Few /HPF 11/02/16 16:34 Phenytoin 0.8 mg/L (10.0-20.0) L 11/02/16 14:28 Valproic Acid < 2.8 ug/mL (50-100) L 11/02/16 14:28 - Imaging and Cardiology MRI - head: image reviewed (no acute findings)
[2016-11-07] MEDS: MORPHINE IV PRN ×4 (04:55→18:08)
[2016-11-07 06:14] LABS: Anion Gap 20 mmol/L; Blood Urea Nitrogen 11 mg/dL (9-20); Calcium 8.4 mg/dL (8.4-10.2); Carbon Dioxide 23 mmol/L (22-30); Chloride 104.3 mmol/L (98-107); Glucose 87 mg/dL (75-100); Potassium 4.2 mmol/L (3.6-5.0); Sodium 143 mmol/L (137-145)
--- NOTE | 2016-11-07 07:22 | Progress Note ---
Assessment and Plan Assessment and plan: 36 YO Male with [place], CAD S/P Stent placement, Seizure Disorder, AIDS, HSV presents with blood in his stool. Also, the patient was told by his roommate he had a generalized tonic-clonic seizure. Patient has large amounts of ulcers in his genital area due to herpes and is a source of the blood that he saw in the toilet. Herpes, genital Infectious disease input appreciated, continue antivirals, Patient will need to continue IV antivirals and so all the lesions crust over He is a poor candidate for home IV antimicrobials, also patient has refused home healthy as he does not want anyone coming to his house AIDS CD4 34 in September 2016 Continue HAART. Infectious disease input appreciated. Crypt ag negative Thrush, oral Current Visit: Yes Status: Acute Plan to address problem: Completing a 10-14-day Fluconazole course. Her ID Status epilepticus Normal CT of the head Neurology input appreciated MRI brain showed Tiny chronic lacunar infarct in the left callie. There is no other significant intracranial finding. Continue Keppra Metabolic Encephalopathy acute Most likely due to post ictal state, now resolved Urinary Tract Infection continue Keflex, will need 7-10 day course ; Hematochezia/ GIB most likely due to rectal ulcer, , hemoglobin is stable. Loose stools If it recurs we'll send stool for C. difficile DVT prophylaxis Lovenox History Interval history: He continues to complain of pain and drainage from his genital rectal ulcers. Denies fevers, denies chills, denies confusion, denies focal weakness, denies any further episodes of seizure He had 2 loose stools yesterday, has not had diarrhea since Hospitalist Physical - Physical exam Narrative exam: General: Patient appears well in no distress HEENT: MMM, EOMI cardiac: S1-S2 heard lungs: clear to auscultation, abdomen: soft, nontender, nondistended bowel sounds positive extremities: no edema clubbing or cyanosis Multiple genital and rectal ulcers which there is drainage and foul odor Skin: no rash or lesion Neuro: no focal deficit Psych: appropriate behavior and mood, cognition intact - Constitutional Vitals: Temp Pulse Resp BP Pulse Ox 99.4 F 91 H 16 118/56 97 11/06/16 22:30 11/06/16 22:30 11/06/16 22:30 11/06/16 22:30 11/06/16 22:30 General appearance: Present: no acute distress, well-nourished Results - Labs CBC & Chem 7: 11/05/16 07:57 11/07/16 05:39 Labs: Laboratory Last Values WBC 6.7 K/mm3 (4.5-11.0) 11/05/16 07:57 RBC 3.02 M/mm3 (3.65-5.03) L 11/05/16 07:57 Hgb 8.7 gm/dl (11.8-15.2) L 11/05/16 07:57 Hct 26.3 % (35.5-45.6) L 11/05/16 07:57 MCV 87 fl (84-94) 11/05/16 07:57 MCH 29 pg (28-32) 11/05/16 07:57 MCHC 33 % (32-34) 11/05/16 07:57 RDW 13.0 % (13.2-15.2) L 11/05/16 07:57 Plt Count 530 K/mm3 (140-440) H 11/05/16 07:57 Lymph % (Auto) Appliance Sales Associate 11/05/16 07:57 [place] % (Auto) Appliance Sales Associate 11/05/16 07:57 Eos % (Auto) Appliance Sales Associate 11/05/16 07:57 Baso % (Auto) Appliance Sales Associate 11/05/16 07:57 Lymph # Appliance Sales Associate 11/05/16 07:57 [place] # Appliance Sales Associate 11/05/16 07:57 Eos # Appliance Sales Associate 11/05/16 07:57 Baso # Appliance Sales Associate 11/05/16 07:57 Add Manual Diff Complete 11/05/16 07:57 Total Counted 100 11/05/16 07:57 Seg Neutrophils % Appliance Sales Associate 11/05/16 07:57 Seg Neuts % (Manual) 56.0 % (40.0-70.0) 11/05/16 07:57 Band Neutrophils % 1.0 % 11/05/16 07:57 Lymphocytes % (Manual) 22.0 % (13.4-35.0) 11/05/16 07:57 Reactive Lymphs % (Man) 0 % 11/05/16 07:57 Monocytes % (Manual) 20.0 % (0.0-7.3) H 11/05/16 07:57 Eosinophils % (Manual) 1.0 % (0.0-4.3) 11/05/16 07:57 Basophils % (Manual) 0 % (0.0-1.8) 11/05/16 07:57 Metamyelocytes % 0 % 11/05/16 07:57 Myelocytes % 0 % 11/05/16 07:57 Promyelocytes % 0 % 11/05/16 07:57 Blast Cells % 0 % 11/05/16 07:57 Nucleated RBC % Not Reportable 11/05/16 07:57 Seg Neutrophils # Appliance Sales Associate 11/05/16 07:57 Seg Neutrophils # Man 3.8 K/mm3 (1.8-7.7) 11/05/16 07:57 Band Neutrophils # 0.1 K/mm3 11/05/16 07:57 Lymphocytes # (Manual) 1.5 K/mm3 (1.2-5.4) 11/05/16 07:57 Abs React Lymphs (Man) 0.0 K/mm3 11/05/16 07:57 Monocytes # (Manual) 1.3 K/mm3 (0.0-0.8) H 11/05/16 07:57 Eosinophils # (Manual) 0.1 K/mm3 (0.0-0.4) 11/05/16 07:57 Basophils # (Manual) 0.0 K/mm3 (0.0-0.1) 11/05/16 07:57 Metamyelocytes # 0.0 K/mm3 11/05/16 07:57 Myelocytes # 0.0 K/mm3 11/05/16 07:57 Promyelocytes # 0.0 K/mm3 11/05/16 07:57 Blast Cells # 0.0 K/mm3 11/05/16 07:57 WBC Morphology Not Reportable 11/05/16 07:57 Hypersegmented Neuts Not Reportable 11/05/16 07:57 Hyposegmented Neuts Not Reportable 11/05/16 07:57 Hypogranular Neuts Not Reportable 11/05/16 07:57 Smudge Cells Few 11/05/16 07:57 Toxic Granulation Not Reportable 11/05/16 07:57 Toxic Vacuolation Not Reportable 11/05/16 07:57 Dohle Bodies Not Reportable 11/05/16 07:57 Pelger-Huet Anomaly Not Reportable 11/05/16 07:57 Kasie Rods Not Reportable 11/05/16 07:57 Platelet Estimate Appears increased 11/05/16 07:57 Clumped Platelets Not Reportable 11/05/16 07:57 Plt Clumps, EDTA Not Reportable 11/05/16 07:57 Large Platelets Not Reportable 11/05/16 07:57 Giant Platelets Not Reportable 11/05/16 07:57 Platelet Satelliting Not Reportable 11/05/16 07:57 Plt Morphology Comment Not Reportable 11/05/16 07:57 RBC Morphology Normal 11/05/16 07:57 Dimorphic RBCs Not Reportable 11/05/16 07:57 Polychromasia Not Reportable 11/05/16 07:57 Hypochromasia Not Reportable 11/05/16 07:57 Poikilocytosis Not Reportable 11/05/16 07:57 Anisocytosis Not Reportable 11/05/16 07:57 Microcytosis Not Reportable 11/05/16 07:57 Macrocytosis Not Reportable 11/05/16 07:57 Spherocytes Not Reportable 11/05/16 07:57 Pappenheimer Bodies Not Reportable 11/05/16 07:57 Sickle Cells Not Reportable 11/05/16 07:57 Target Cells Not Reportable 11/05/16 07:57 Tear Drop Cells Not Reportable 11/05/16 07:57 Ovalocytes Not Reportable 11/05/16 07:57 Helmet Cells Not Reportable 11/05/16 07:57 Yepez-[place] Bodies Not Reportable 11/05/16 07:57 [place] Rings Not Reportable 11/05/16 07:57 Darryl Cells Not Reportable 11/05/16 07:57 Bite Cells Not Reportable 11/05/16 07:57 Crenated Cell Not Reportable 11/05/16 07:57 Elliptocytes Not Reportable 11/05/16 07:57 Acanthocytes (Spur) Not Reportable 11/05/16 07:57 Rouleaux Not Reportable 11/05/16 07:57 Hemoglobin C Crystals Not Reportable 11/05/16 07:57 Schistocytes Not Reportable 11/05/16 07:57 Malaria parasites Not Reportable 11/05/16 07:57 Jaime Bodies Not Reportable 11/05/16 07:57 Hem Pathologist Commnt No 11/05/16 07:57 Sodium 143 mmol/L (137-145) 11/07/16 05:39 Potassium 4.2 mmol/L (3.6-5.0) 11/07/16 05:39 Chloride 104.3 mmol/L (98-107) 11/07/16 05:39 Carbon Dioxide 23 mmol/L (22-30) 11/07/16 05:39 Anion Gap 20 mmol/L 11/07/16 05:39 BUN 11 mg/dL (9-20) 11/07/16 05:39 Creatinine 1.0 mg/dL (0.8-1.5) 11/07/16 05:39 Estimated GFR > 60 ml/min 11/07/16 05:39 BUN/Creatinine Ratio 11.00 % 11/07/16 05:39 Glucose 87 mg/dL (75-100) 11/07/16 05:39 POC Glucose 111 (70-105) H 11/02/16 14:21 Calcium 8.4 mg/dL (8.4-10.2) 11/07/16 05:39 Total Bilirubin 0.30 mg/dL (0.1-1.2) 11/02/16 14:28 AST 17 units/L (5-40) 11/02/16 14:28 ALT 7 units/L (7-56) 11/02/16 14:28 Alkaline Phosphatase 100 units/L (35-129) 11/02/16 14:28 Troponin T < 0.010 ng/mL (0.00-0.029) 11/02/16 20:20 Total Protein 7.8 g/dL (6.3-8.2) 11/02/16 14:28 Albumin 3.1 g/dL (3.9-5) L 11/02/16 14:28 Albumin/Globulin Ratio 0.7 % 11/02/16 14:28 Urine Color Yellow (Yellow) 11/02/16 16:34 Urine Turbidity Clear (Clear) 11/02/16 16:34 Urine pH 5.0 (5.0-7.0) 11/02/16 16:34 Ur Specific [place] 1.027 (1.003-1.030) 11/02/16 16:34 Urine Protein 30 mg/dl mg/dL (Negative) 11/02/16 16:34 Urine Glucose (UA) Neg mg/dL (Negative) 11/02/16 16:34 Urine Ketones Neg mg/dL (Negative) 11/02/16 16:34 Urine Blood Neg (Negative) 11/02/16 16:34 Urine Nitrite Neg (Negative) 11/02/16 16:34 Urine Bilirubin Neg (Negative) 11/02/16 16:34 Urine Urobilinogen 4.0 mg/dL (<2.0) 11/02/16 16:34 Ur Leukocyte Esterase Mod (Negative) 11/02/16 16:34 Urine WBC (Auto) 63.0 /HPF (0.0-6.0) H 11/02/16 16:34 Urine RBC (Auto) 16.0 /HPF (0.0-6.0) 11/02/16 16:34 U Epithel Cells (Auto) 5.0 /HPF (0-13.0) 11/02/16 16:34 Urine Mucus Few /HPF 11/02/16 16:34 Phenytoin 0.8 mg/L (10.0-20.0) L 11/02/16 14:28 Valproic Acid < 2.8 ug/mL (50-100) L 11/02/16 14:28
[2016-11-07] MEDS: EMTRIVA PO SCH (09:29)
[2016-11-07] MEDS: KEPPRA PO SCH (09:29)
[2016-11-07] MEDS: PREZISTA PO SCH (09:29)
[2016-11-07] MEDS: NORVIR PO SCH (09:29)
[2016-11-07] MEDS: VIREAD PO SCH (09:29)
[2016-11-07] MEDS: KEFLEX PO SCH (09:29)
[2016-11-07] MEDS: DIFLUCAN PO SCH (09:29)
[2016-11-07] MEDS: CYTOVENE 500 MG in NACL 0.9% 250ML 250 ML IV SCH ×2 (09:33→20:34)
--- NOTE | 2016-11-07 11:35 | Progress Note ---
Assessment and Plan - Patient Problems (1) Herpes, genital Current Visit: Yes Status: Acute Qualifiers: Herpes simplex infection site: H Plan to address problem: 1. Continue Ganciclovir. 2. If lesions begin to crust on this therapy, will change to oral Valcyte to complete course. 3. Will discontinue Keflex. (2) AIDS Current Visit: Yes Status: Acute Plan to address problem: Continue current ARVs while inpatient per formulary. Patient can resume home regimen after discharge. (3) Thrush, oral Current Visit: Yes Status: Acute Plan to address problem: Continue Fluconazole. Subjective Date of service: 11/07/16 Principal diagnosis: Genital HSV Outbreak Interval history: Patient changed to Ganciclovir yesterday, but doses not available until today. Denies diarrhea. Objective - Constitutional Vitals: Vital Signs Temp Pulse Resp BP Pulse Ox 99.1 F 86 18 117/75 98 11/07/16 08:00 11/07/16 08:00 11/07/16 08:00 11/07/16 08:00 11/07/16 08:00 Temperature -Last 24 Hours Temperature 99.1 F Temperature 99.4 F Temperature 98.4 F General appearance: Present: no acute distress - Respiratory Respiratory effort: normal Respiratory: bilateral: CTA - Cardiovascular Rhythm: regular Heart Sounds: Present: S1 & S2 Extremities: No edema - Gastrointestinal General gastrointestinal: Present: soft, non-distended - Genitourinary Male genitourinary: scrotal edema (unchanged lesions on penis and within gluteal fold) - Integumentary Integumentary: no rash - Psychiatric Psychiatric: appropriate mood/affect - Labs CBC & Chem 7: 11/05/16 07:57 11/07/16 05:39 Labs: Microbiology 11/02/16 14:28 Serum Cryptococcal Antigen - Final
[2016-11-07] MEDS: NACL 0.45% 1000 ML 1,000 ML IV SCH (12:09)
[2016-11-07] MEDS: ZOFRAN IV PRN (13:10)
[2016-11-08] MEDS: MORPHINE IV PRN ×5 (00:11→22:10)
[2016-11-08] MEDS: KEPPRA PO SCH ×3 (00:12→21:01)
[2016-11-08] MEDS: EMTRIVA PO SCH (10:02)
[2016-11-08] MEDS: PREZISTA PO SCH (10:02)
[2016-11-08] MEDS: VIREAD PO SCH (10:02)
[2016-11-08] MEDS: ZOFRAN IV PRN (10:03)
[2016-11-08] MEDS: DIFLUCAN PO SCH (10:03)
[2016-11-08] MEDS: NORVIR PO SCH (10:03)
[2016-11-08] MEDS: CYTOVENE 500 MG in NACL 0.9% 250ML 250 ML IV SCH ×2 (10:05→20:50)
--- NOTE | 2016-11-08 10:18 | Progress Note ---
Assessment and Plan Assessment and plan: 36 YO Male with [place], CAD S/P Stent placement, Seizure Disorder, AIDS, HSV presents with blood in his stool. Also, the patient was told by his roommate he had a generalized tonic-clonic seizure. Patient has large amounts of ulcers in his genital area due to herpes and is a source of the blood that he saw in the toilet. Herpes, genital Infectious disease input appreciated, continue antivirals, Patient will need to continue IV antivirals and so all the lesions crust over Continue Ganciclovir. * If lesions begin to crust on this therapy, will change to oral Valcyte to complete course. He is a poor candidate for home IV antimicrobials, also patient has refused home healthy as he does not want anyone coming to his house AIDS CD4 34 in September 2016 Continue HAART. Infectious disease input appreciated. Crypt ag negative Thrush, oral Current Visit: Yes Status: Acute Plan to address problem: Completing a 10-14-day Fluconazole course. per ID Status epilepticus Normal CT of the head Neurology input appreciated MRI brain showed Tiny chronic lacunar infarct in the left callie. There is no other significant intracranial finding. Continue Keppra Metabolic Encephalopathy acute Most likely due to post ictal state, now resolved Urinary Tract Infection has completed a course of Keflex, dc on on 11/07 ; Hematochezia/ GIB most likely due to rectal ulcer, , hemoglobin is stable. Loose stools now resolved, If it recurs we'll send stool for C. difficile DVT prophylaxis Lovenox History Interval history: He continues to complain of pain and drainage from his genital rectal ulcers. Denies fevers, denies chills, denies confusion, denies focal weakness, denies any further episodes of seizure Hospitalist Physical - Physical exam Narrative exam: General: Patient appears well in no distress HEENT: MMM, EOMI cardiac: S1-S2 heard lungs: clear to auscultation, abdomen: soft, nontender, nondistended bowel sounds positive extremities: no edema clubbing or cyanosis Multiple genital and rectal ulcers which there is drainage and foul odor Skin: no rash or lesion Neuro: no focal deficit Psych: appropriate behavior and mood, cognition intact - Constitutional Vitals: Temp Pulse Resp BP Pulse Ox 98.8 F 73 20 115/67 100 11/08/16 08:00 11/08/16 08:00 11/08/16 08:00 11/08/16 08:00 11/08/16 08:00 General appearance: Present: no acute distress Results - Labs CBC & Chem 7: 11/05/16 07:57 11/09/16 07:04 Labs: Laboratory Last Values WBC 6.7 K/mm3 (4.5-11.0) 11/05/16 07:57 RBC 3.02 M/mm3 (3.65-5.03) L 11/05/16 07:57 Hgb 8.7 gm/dl (11.8-15.2) L 11/05/16 07:57 Hct 26.3 % (35.5-45.6) L 11/05/16 07:57 MCV 87 fl (84-94) 11/05/16 07:57 MCH 29 pg (28-32) 11/05/16 07:57 MCHC 33 % (32-34) 11/05/16 07:57 RDW 13.0 % (13.2-15.2) L 11/05/16 07:57 Plt Count 530 K/mm3 (140-440) H 11/05/16 07:57 Lymph % (Auto) Mold Operator 11/05/16 07:57 [place] % (Auto) Mold Operator 11/05/16 07:57 Eos % (Auto) Mold Operator 11/05/16 07:57 Baso % (Auto) Mold Operator 11/05/16 07:57 Lymph # Mold Operator 11/05/16 07:57 [place] # Mold Operator 11/05/16 07:57 Eos # Mold Operator 11/05/16 07:57 Baso # Mold Operator 11/05/16 07:57 Add Manual Diff Complete 11/05/16 07:57 Total Counted 100 11/05/16 07:57 Seg Neutrophils % Mold Operator 11/05/16 07:57 Seg Neuts % (Manual) 56.0 % (40.0-70.0) 11/05/16 07:57 Band Neutrophils % 1.0 % 11/05/16 07:57 Lymphocytes % (Manual) 22.0 % (13.4-35.0) 11/05/16 07:57 Reactive Lymphs % (Man) 0 % 11/05/16 07:57 Monocytes % (Manual) 20.0 % (0.0-7.3) H 11/05/16 07:57 Eosinophils % (Manual) 1.0 % (0.0-4.3) 11/05/16 07:57 Basophils % (Manual) 0 % (0.0-1.8) 11/05/16 07:57 Metamyelocytes % 0 % 11/05/16 07:57 Myelocytes % 0 % 11/05/16 07:57 Promyelocytes % 0 % 11/05/16 07:57 Blast Cells % 0 % 11/05/16 07:57 Nucleated RBC % Not Reportable 11/05/16 07:57 Seg Neutrophils # Mold Operator 11/05/16 07:57 Seg Neutrophils # Man 3.8 K/mm3 (1.8-7.7) 11/05/16 07:57 Band Neutrophils # 0.1 K/mm3 11/05/16 07:57 Lymphocytes # (Manual) 1.5 K/mm3 (1.2-5.4) 11/05/16 07:57 Abs React Lymphs (Man) 0.0 K/mm3 11/05/16 07:57 Monocytes # (Manual) 1.3 K/mm3 (0.0-0.8) H 11/05/16 07:57 Eosinophils # (Manual) 0.1 K/mm3 (0.0-0.4) 11/05/16 07:57 Basophils # (Manual) 0.0 K/mm3 (0.0-0.1) 11/05/16 07:57 Metamyelocytes # 0.0 K/mm3 11/05/16 07:57 Myelocytes # 0.0 K/mm3 11/05/16 07:57 Promyelocytes # 0.0 K/mm3 11/05/16 07:57 Blast Cells # 0.0 K/mm3 11/05/16 07:57 WBC Morphology Not Reportable 11/05/16 07:57 Hypersegmented Neuts Not Reportable 11/05/16 07:57 Hyposegmented Neuts Not Reportable 11/05/16 07:57 Hypogranular Neuts Not Reportable 11/05/16 07:57 Smudge Cells Few 11/05/16 07:57 Toxic Granulation Not Reportable 11/05/16 07:57 Toxic Vacuolation Not Reportable 11/05/16 07:57 Dohle Bodies Not Reportable 11/05/16 07:57 Pelger-Huet Anomaly Not Reportable 11/05/16 07:57 Kasie Rods Not Reportable 11/05/16 07:57 Platelet Estimate Appears increased 11/05/16 07:57 Clumped Platelets Not Reportable 11/05/16 07:57 Plt Clumps, EDTA Not Reportable 11/05/16 07:57 Large Platelets Not Reportable 11/05/16 07:57 Giant Platelets Not Reportable 11/05/16 07:57 Platelet Satelliting Not Reportable 11/05/16 07:57 Plt Morphology Comment Not Reportable 11/05/16 07:57 RBC Morphology Normal 11/05/16 07:57 Dimorphic RBCs Not Reportable 11/05/16 07:57 Polychromasia Not Reportable 11/05/16 07:57 Hypochromasia Not Reportable 11/05/16 07:57 Poikilocytosis Not Reportable 11/05/16 07:57 Anisocytosis Not Reportable 11/05/16 07:57 Microcytosis Not Reportable 11/05/16 07:57 Macrocytosis Not Reportable 11/05/16 07:57 Spherocytes Not Reportable 11/05/16 07:57 Pappenheimer Bodies Not Reportable 11/05/16 07:57 Sickle Cells Not Reportable 11/05/16 07:57 Target Cells Not Reportable 11/05/16 07:57 Tear Drop Cells Not Reportable 11/05/16 07:57 Ovalocytes Not Reportable 11/05/16 07:57 Helmet Cells Not Reportable 11/05/16 07:57 Yepez-[place] Bodies Not Reportable 11/05/16 07:57 [place] Rings Not Reportable 11/05/16 07:57 Darryl Cells Not Reportable 11/05/16 07:57 Bite Cells Not Reportable 11/05/16 07:57 Crenated Cell Not Reportable 11/05/16 07:57 Elliptocytes Not Reportable 11/05/16 07:57 Acanthocytes (Spur) Not Reportable 11/05/16 07:57 Rouleaux Not Reportable 11/05/16 07:57 Hemoglobin C Crystals Not Reportable 11/05/16 07:57 Schistocytes Not Reportable 11/05/16 07:57 Malaria parasites Not Reportable 11/05/16 07:57 Jaime Bodies Not Reportable 11/05/16 07:57 Hem Pathologist Commnt No 11/05/16 07:57 Sodium 143 mmol/L (137-145) 11/07/16 05:39 Potassium 4.2 mmol/L (3.6-5.0) 11/07/16 05:39 Chloride 104.3 mmol/L (98-107) 11/07/16 05:39 Carbon Dioxide 23 mmol/L (22-30) 11/07/16 05:39 Anion Gap 20 mmol/L 11/07/16 05:39 BUN 11 mg/dL (9-20) 11/07/16 05:39 Creatinine 1.0 mg/dL (0.8-1.5) 11/07/16 05:39 Estimated GFR > 60 ml/min 11/07/16 05:39 BUN/Creatinine Ratio 11.00 % 11/07/16 05:39 Glucose 87 mg/dL (75-100) 11/07/16 05:39 POC Glucose 111 (70-105) H 11/02/16 14:21 Calcium 8.4 mg/dL (8.4-10.2) 11/07/16 05:39 Total Bilirubin 0.30 mg/dL (0.1-1.2) 11/02/16 14:28 AST 17 units/L (5-40) 11/02/16 14:28 ALT 7 units/L (7-56) 11/02/16 14:28 Alkaline Phosphatase 100 units/L (35-129) 11/02/16 14:28 Troponin T < 0.010 ng/mL (0.00-0.029) 11/02/16 20:20 Total Protein 7.8 g/dL (6.3-8.2) 11/02/16 14:28 Albumin 3.1 g/dL (3.9-5) L 11/02/16 14:28 Albumin/Globulin Ratio 0.7 % 11/02/16 14:28 Urine Color Yellow (Yellow) 11/02/16 16:34 Urine Turbidity Clear (Clear) 11/02/16 16:34 Urine pH 5.0 (5.0-7.0) 11/02/16 16:34 Ur Specific [place] 1.027 (1.003-1.030) 11/02/16 16:34 Urine Protein 30 mg/dl mg/dL (Negative) 11/02/16 16:34 Urine Glucose (UA) Neg mg/dL (Negative) 11/02/16 16:34 Urine Ketones Neg mg/dL (Negative) 11/02/16 16:34 Urine Blood Neg (Negative) 11/02/16 16:34 Urine Nitrite Neg (Negative) 11/02/16 16:34 Urine Bilirubin Neg (Negative) 11/02/16 16:34 Urine Urobilinogen 4.0 mg/dL (<2.0) 11/02/16 16:34 Ur Leukocyte Esterase Mod (Negative) 11/02/16 16:34 Urine WBC (Auto) 63.0 /HPF (0.0-6.0) H 11/02/16 16:34 Urine RBC (Auto) 16.0 /HPF (0.0-6.0) 11/02/16 16:34 U Epithel Cells (Auto) 5.0 /HPF (0-13.0) 11/02/16 16:34 Urine Mucus Few /HPF 11/02/16 16:34 Phenytoin 0.8 mg/L (10.0-20.0) L 11/02/16 14:28 Valproic Acid < 2.8 ug/mL (50-100) L 11/02/16 14:28
[2016-11-08] MEDS: PERCOCET 5/325 PO PRN (14:07)
--- NOTE | 2016-11-08 17:43 | Progress Note ---
Assessment and Plan - Patient Problems (1) Herpes, genital Current Visit: Yes Status: Acute Qualifiers: Herpes simplex infection site: H Plan to address problem: Continue Ganciclovir. Check BMP. Valcyte once lesions begin to crust to complete 10-14 days of therapy. Anticipate improvement for discharge on Thursday. (2) AIDS Current Visit: Yes Status: Acute Plan to address problem: On HAART and PjP prophylaxis. (3) Thrush, oral Current Visit: Yes Status: Acute Plan to address problem: Continue Fluconazole. Subjective Date of service: 11/08/16 Principal diagnosis: Genital HSV Outbreak Interval history: Remains afebrile. Currently on Ganciclovir. Objective - Constitutional Vitals: Vital Signs Temp Pulse Resp BP Pulse Ox 98.3 F 80 20 108/70 100 11/08/16 16:00 11/08/16 16:00 11/08/16 16:00 11/08/16 16:00 11/08/16 08:00 Temperature -Last 24 Hours Temperature 98.3 F Temperature 98.8 F Temperature 99.8 F General appearance: Present: no acute distress, well-nourished - Neck Neck: supple - Respiratory Respiratory: bilateral: CTA - Cardiovascular Rhythm: regular Heart Sounds: Present: S1 & S2 Extremities: No edema - Gastrointestinal General gastrointestinal: Present: soft, non-tender, non-distended - Genitourinary Male genitourinary: tender (minimally changed ulcerations of penis and gluteal fold, decreased odor) - Integumentary Integumentary: no rash - Neurologic Neurologic: other (mild tremor right hand) - Psychiatric Psychiatric: appropriate mood/affect - Labs CBC & Chem 7: 11/05/16 07:57 11/07/16 05:39 Labs: Microbiology 11/02/16 14:28 Serum Cryptococcal Antigen - Final
[2016-11-08] MEDS: NACL 0.45% 1000 ML 1,000 ML IV SCH (18:10)
[2016-11-09] MEDS: MORPHINE IV PRN ×3 (05:54→22:15)
[2016-11-09 07:49] LABS: Anion Gap 17 mmol/L; Blood Urea Nitrogen 9 mg/dL (9-20); Calcium 8.6 mg/dL (8.4-10.2); Carbon Dioxide 24 mmol/L (22-30); Chloride 101.4 mmol/L (98-107); Glucose 85 mg/dL (75-100); Potassium 4.1 mmol/L (3.6-5.0); Sodium 138 mmol/L (137-145)
[2016-11-09] MEDS: CYTOVENE 500 MG in NACL 0.9% 250ML 250 ML IV SCH ×2 (08:55→22:18)
[2016-11-09] MEDS: PERCOCET 5/325 PO PRN ×2 (08:55→19:05)
[2016-11-09] MEDS: DIFLUCAN PO SCH (11:02)
[2016-11-09] MEDS: BACTRIM DS PO SCH (11:02)
[2016-11-09] MEDS: NORVIR PO SCH (11:03)
[2016-11-09] MEDS: KEPPRA PO SCH ×2 (11:03→22:14)
[2016-11-09] MEDS: VIREAD PO SCH (11:03)
[2016-11-09] MEDS: EMTRIVA PO SCH (11:04)
[2016-11-09] MEDS: PREZISTA PO SCH (11:04)
--- NOTE | 2016-11-09 11:52 | Progress Note ---
Assessment and Plan Assessment and plan: 36 YO Male with NM, CAD S/P Stent placement, Seizure Disorder, AIDS, HSV presents with blood in his stool. Also, the patient was told by his roommate he had a generalized tonic-clonic seizure. Patient has large amounts of ulcers in his genital area due to herpes and is a source of the blood that he saw in the toilet. Herpes, genital Infectious disease input appreciated, continue antivirals, Patient will need to continue IV antivirals and so all the lesions crust over He is a poor candidate for home IV antimicrobials, also patient has refused home healthy as he does not want anyone coming to his house AIDS CD4 34 in September 2016 Continue HAART. Infectious disease input appreciated. Crypt ag negative Thrush, oral Current Visit: Yes Status: Acute Plan to address problem: Completing a 10-14-day Fluconazole course. Her ID Status epilepticus Normal CT of the head Neurology input appreciated MRI brain showed Tiny chronic lacunar infarct in the left callie. There is no other significant intracranial finding. Continue Keppra Metabolic Encephalopathy acute Most likely due to post ictal state, now resolved Urinary Tract Infection continue Keflex, will need 7-10 day course ; Hematochezia/ GIB most likely due to rectal ulcer, , hemoglobin is stable. Loose stools If it recurs we'll send stool for C. difficile DVT prophylaxis Lovenox History Interval history: He continues to complain of pain and drainage from his genital rectal ulcers. Denies fevers, denies chills, denies confusion, denies focal weakness, denies any further episodes of seizure Hospitalist Physical - Physical exam Narrative exam: General: Patient appears well in no distress HEENT: MMM, EOMI cardiac: S1-S2 heard lungs: clear to auscultation, abdomen: soft, nontender, nondistended bowel sounds positive extremities: no edema clubbing or cyanosis Multiple genital and rectal ulcers which there is drainage and foul odor Skin: no rash or lesion Neuro: no focal deficit Psych: appropriate behavior and mood, cognition intact - Constitutional Vitals: Temp Pulse Resp BP Pulse Ox 99 F 76 18 110/68 100 11/09/16 08:00 11/09/16 08:00 11/09/16 08:00 11/09/16 08:00 11/09/16 08:00 General appearance: Present: no acute distress, well-nourished Results - Labs CBC & Chem 7: 11/05/16 07:57 11/09/16 07:04 Labs: Laboratory Last Values WBC 6.7 K/mm3 (4.5-11.0) 11/05/16 07:57 RBC 3.02 M/mm3 (3.65-5.03) L 11/05/16 07:57 Hgb 8.7 gm/dl (11.8-15.2) L 11/05/16 07:57 Hct 26.3 % (35.5-45.6) L 11/05/16 07:57 MCV 87 fl (84-94) 11/05/16 07:57 MCH 29 pg (28-32) 11/05/16 07:57 MCHC 33 % (32-34) 11/05/16 07:57 RDW 13.0 % (13.2-15.2) L 11/05/16 07:57 Plt Count 530 K/mm3 (140-440) H 11/05/16 07:57 Lymph % (Auto) [employer] 11/05/16 07:57 Quay % (Auto) [employer] 11/05/16 07:57 Eos % (Auto) [employer] 11/05/16 07:57 Baso % (Auto) [employer] 11/05/16 07:57 Lymph # [employer] 11/05/16 07:57 Quay # [employer] 11/05/16 07:57 Eos # [employer] 11/05/16 07:57 Baso # [employer] 11/05/16 07:57 Add Manual Diff Complete 11/05/16 07:57 Total Counted 100 11/05/16 07:57 Seg Neutrophils % [employer] 11/05/16 07:57 Seg Neuts % (Manual) 56.0 % (40.0-70.0) 11/05/16 07:57 Band Neutrophils % 1.0 % 11/05/16 07:57 Lymphocytes % (Manual) 22.0 % (13.4-35.0) 11/05/16 07:57 Reactive Lymphs % (Man) 0 % 11/05/16 07:57 Monocytes % (Manual) 20.0 % (0.0-7.3) H 11/05/16 07:57 Eosinophils % (Manual) 1.0 % (0.0-4.3) 11/05/16 07:57 Basophils % (Manual) 0 % (0.0-1.8) 11/05/16 07:57 Metamyelocytes % 0 % 11/05/16 07:57 Myelocytes % 0 % 11/05/16 07:57 Promyelocytes % 0 % 11/05/16 07:57 Blast Cells % 0 % 11/05/16 07:57 Nucleated RBC % Not Reportable 11/05/16 07:57 Seg Neutrophils # [employer] 11/05/16 07:57 Seg Neutrophils # Man 3.8 K/mm3 (1.8-7.7) 11/05/16 07:57 Band Neutrophils # 0.1 K/mm3 11/05/16 07:57 Lymphocytes # (Manual) 1.5 K/mm3 (1.2-5.4) 11/05/16 07:57 Abs React Lymphs (Man) 0.0 K/mm3 11/05/16 07:57 Monocytes # (Manual) 1.3 K/mm3 (0.0-0.8) H 11/05/16 07:57 Eosinophils # (Manual) 0.1 K/mm3 (0.0-0.4) 11/05/16 07:57 Basophils # (Manual) 0.0 K/mm3 (0.0-0.1) 11/05/16 07:57 Metamyelocytes # 0.0 K/mm3 11/05/16 07:57 Myelocytes # 0.0 K/mm3 11/05/16 07:57 Promyelocytes # 0.0 K/mm3 11/05/16 07:57 Blast Cells # 0.0 K/mm3 11/05/16 07:57 WBC Morphology Not Reportable 11/05/16 07:57 Hypersegmented Neuts Not Reportable 11/05/16 07:57 Hyposegmented Neuts Not Reportable 11/05/16 07:57 Hypogranular Neuts Not Reportable 11/05/16 07:57 Smudge Cells Few 11/05/16 07:57 Toxic Granulation Not Reportable 11/05/16 07:57 Toxic Vacuolation Not Reportable 11/05/16 07:57 Dohle Bodies Not Reportable 11/05/16 07:57 Pelger-Huet Anomaly Not Reportable 11/05/16 07:57 Kasie Rods Not Reportable 11/05/16 07:57 Platelet Estimate Appears increased 11/05/16 07:57 Clumped Platelets Not Reportable 11/05/16 07:57 Plt Clumps, EDTA Not Reportable 11/05/16 07:57 Large Platelets Not Reportable 11/05/16 07:57 Giant Platelets Not Reportable 11/05/16 07:57 Platelet Satelliting Not Reportable 11/05/16 07:57 Plt Morphology Comment Not Reportable 11/05/16 07:57 RBC Morphology Normal 11/05/16 07:57 Dimorphic RBCs Not Reportable 11/05/16 07:57 Polychromasia Not Reportable 11/05/16 07:57 Hypochromasia Not Reportable 11/05/16 07:57 Poikilocytosis Not Reportable 11/05/16 07:57 Anisocytosis Not Reportable 11/05/16 07:57 Microcytosis Not Reportable 11/05/16 07:57 Macrocytosis Not Reportable 11/05/16 07:57 Spherocytes Not Reportable 11/05/16 07:57 Pappenheimer Bodies Not Reportable 11/05/16 07:57 Sickle Cells Not Reportable 11/05/16 07:57 Target Cells Not Reportable 11/05/16 07:57 Tear Drop Cells Not Reportable 11/05/16 07:57 Ovalocytes Not Reportable 11/05/16 07:57 Helmet Cells Not Reportable 11/05/16 07:57 Yepez-[place] Bodies Not Reportable 11/05/16 07:57 [place] Rings Not Reportable 11/05/16 07:57 [place] Cells Not Reportable 11/05/16 07:57 Bite Cells Not Reportable 11/05/16 07:57 Crenated Cell Not Reportable 11/05/16 07:57 Elliptocytes Not Reportable 11/05/16 07:57 Acanthocytes (Spur) Not Reportable 11/05/16 07:57 Rouleaux Not Reportable 11/05/16 07:57 Hemoglobin C Crystals Not Reportable 11/05/16 07:57 Schistocytes Not Reportable 11/05/16 07:57 Malaria parasites Not Reportable 11/05/16 07:57 Jaime Bodies Not Reportable 11/05/16 07:57 Hem Pathologist Commnt No 11/05/16 07:57 Sodium 138 mmol/L (137-145) 11/09/16 07:04 Potassium 4.1 mmol/L (3.6-5.0) 11/09/16 07:04 Chloride 101.4 mmol/L (98-107) 11/09/16 07:04 Carbon Dioxide 24 mmol/L (22-30) 11/09/16 07:04 Anion Gap 17 mmol/L 11/09/16 07:04 BUN 9 mg/dL (9-20) 11/09/16 07:04 Creatinine 0.9 mg/dL (0.8-1.5) 11/09/16 07:04 Estimated GFR > 60 ml/min 11/09/16 07:04 BUN/Creatinine Ratio 10.00 % 11/09/16 07:04 Glucose 85 mg/dL (75-100) 11/09/16 07:04 POC Glucose 111 (70-105) H 11/02/16 14:21 Calcium 8.6 mg/dL (8.4-10.2) 11/09/16 07:04 Total Bilirubin 0.30 mg/dL (0.1-1.2) 11/02/16 14:28 AST 17 units/L (5-40) 11/02/16 14:28 ALT 7 units/L (7-56) 11/02/16 14:28 Alkaline Phosphatase 100 units/L (35-129) 11/02/16 14:28 Troponin T < 0.010 ng/mL (0.00-0.029) 11/02/16 20:20 Total Protein 7.8 g/dL (6.3-8.2) 11/02/16 14:28 Albumin 3.1 g/dL (3.9-5) L 11/02/16 14:28 Albumin/Globulin Ratio 0.7 % 11/02/16 14:28 Urine Color Yellow (Yellow) 11/02/16 16:34 Urine Turbidity Clear (Clear) 11/02/16 16:34 Urine pH 5.0 (5.0-7.0) 11/02/16 16:34 Ur Specific [place] 1.027 (1.003-1.030) 11/02/16 16:34 Urine Protein 30 mg/dl mg/dL (Negative) 11/02/16 16:34 Urine Glucose (UA) Neg mg/dL (Negative) 11/02/16 16:34 Urine Ketones Neg mg/dL (Negative) 11/02/16 16:34 Urine Blood Neg (Negative) 11/02/16 16:34 Urine Nitrite Neg (Negative) 11/02/16 16:34 Urine Bilirubin Neg (Negative) 11/02/16 16:34 Urine Urobilinogen 4.0 mg/dL (<2.0) 11/02/16 16:34 Ur Leukocyte Esterase Mod (Negative) 11/02/16 16:34 Urine WBC (Auto) 63.0 /HPF (0.0-6.0) H 11/02/16 16:34 Urine RBC (Auto) 16.0 /HPF (0.0-6.0) 11/02/16 16:34 U Epithel Cells (Auto) 5.0 /HPF (0-13.0) 11/02/16 16:34 Urine Mucus Few /HPF 11/02/16 16:34 Phenytoin 0.8 mg/L (10.0-20.0) L 11/02/16 14:28 Valproic Acid < 2.8 ug/mL (50-100) L 11/02/16 14:28
[2016-11-10] MEDS: NACL 0.45% 1000 ML 1,000 ML IV SCH (00:17)
[2016-11-10] MEDS: MORPHINE IV PRN ×5 (04:51→22:04)
--- NOTE | 2016-11-10 09:16 | Progress Note ---
Assessment and Plan Assessment and plan: 36 YO Male with NM, CAD S/P Stent placement, Seizure Disorder, AIDS, HSV presents with blood in his stool. Also, the patient was told by his roommate he had a generalized tonic-clonic seizure. Patient has large amounts of ulcers in his genital area due to herpes and is a source of the blood that he saw in the toilet. Herpes, genital Infectious disease input appreciated, continue antivirals, Patient will need to continue IV antivirals and so all the lesions crust over He is a poor candidate for home IV antimicrobials, also patient has refused home healthy as he does not want anyone coming to his house jean- Rectal Ulcers not improving, unclear what the etiology is, will consult surgery for biopsy of the rectal area ID input appreciated AIDS CD4 34 in September 2016 Continue HAART. Infectious disease input appreciated. Crypt ag negative Thrush, oral Current Visit: Yes Status: Acute Plan to address problem: Completing a 10-14-day Fluconazole course. Her ID Status epilepticus Normal CT of the head Neurology input appreciated MRI brain showed Tiny chronic lacunar infarct in the left callie. There is no other significant intracranial finding. Continue Keppra Metabolic Encephalopathy acute Most likely due to post ictal state, now resolved Urinary Tract Infection continue Keflex, will need 7-10 day course ; Hematochezia/ GIB most likely due to rectal ulcer, , hemoglobin is stable. Loose stools If it recurs we'll send stool for C. difficile DVT prophylaxis Lovenox History Interval history: He continues to complain of pain and drainage from his genital rectal ulcers. Denies fevers, denies chills, denies confusion, denies focal weakness, denies any further episodes of seizure Hospitalist Physical - Physical exam Narrative exam: General: Patient appears well in no distress HEENT: MMM, EOMI cardiac: S1-S2 heard lungs: clear to auscultation, abdomen: soft, nontender, nondistended bowel sounds positive extremities: no edema clubbing or cyanosis Multiple genital and rectal ulcers which there is drainage and foul odor Skin: no rash or lesion Neuro: no focal deficit Psych: appropriate behavior and mood, cognition intact - Constitutional Vitals: Temp Pulse Resp BP Pulse Ox 98.2 F 70 18 116/64 97 11/10/16 08:00 11/10/16 08:00 11/10/16 08:00 11/10/16 08:00 11/10/16 08:00 General appearance: Present: no acute distress, well-nourished Results - Labs CBC & Chem 7: 11/05/16 07:57 11/09/16 07:04 Labs: Laboratory Last Values WBC 6.7 K/mm3 (4.5-11.0) 11/05/16 07:57 RBC 3.02 M/mm3 (3.65-5.03) L 11/05/16 07:57 Hgb 8.7 gm/dl (11.8-15.2) L 11/05/16 07:57 Hct 26.3 % (35.5-45.6) L 11/05/16 07:57 MCV 87 fl (84-94) 11/05/16 07:57 MCH 29 pg (28-32) 11/05/16 07:57 MCHC 33 % (32-34) 11/05/16 07:57 RDW 13.0 % (13.2-15.2) L 11/05/16 07:57 Plt Count 530 K/mm3 (140-440) H 11/05/16 07:57 Lymph % (Auto) Ledge Man 11/05/16 07:57 [place] % (Auto) Ledge Man 11/05/16 07:57 Eos % (Auto) Ledge Man 11/05/16 07:57 Baso % (Auto) Ledge Man 11/05/16 07:57 Lymph # Ledge Man 11/05/16 07:57 Carver # Ledge Man 11/05/16 07:57 Eos # Ledge Man 11/05/16 07:57 Baso # Ledge Man 11/05/16 07:57 Add Manual Diff Complete 11/05/16 07:57 Total Counted 100 11/05/16 07:57 Seg Neutrophils % Ledge Man 11/05/16 07:57 Seg Neuts % (Manual) 56.0 % (40.0-70.0) 11/05/16 07:57 Band Neutrophils % 1.0 % 11/05/16 07:57 Lymphocytes % (Manual) 22.0 % (13.4-35.0) 11/05/16 07:57 Reactive Lymphs % (Man) 0 % 11/05/16 07:57 Monocytes % (Manual) 20.0 % (0.0-7.3) H 11/05/16 07:57 Eosinophils % (Manual) 1.0 % (0.0-4.3) 11/05/16 07:57 Basophils % (Manual) 0 % (0.0-1.8) 11/05/16 07:57 Metamyelocytes % 0 % 11/05/16 07:57 Myelocytes % 0 % 11/05/16 07:57 Promyelocytes % 0 % 11/05/16 07:57 Blast Cells % 0 % 11/05/16 07:57 Nucleated RBC % Not Reportable 11/05/16 07:57 Seg Neutrophils # Ledge Man 11/05/16 07:57 Seg Neutrophils # Man 3.8 K/mm3 (1.8-7.7) 11/05/16 07:57 Band Neutrophils # 0.1 K/mm3 11/05/16 07:57 Lymphocytes # (Manual) 1.5 K/mm3 (1.2-5.4) 11/05/16 07:57 Abs React Lymphs (Man) 0.0 K/mm3 11/05/16 07:57 Monocytes # (Manual) 1.3 K/mm3 (0.0-0.8) H 11/05/16 07:57 Eosinophils # (Manual) 0.1 K/mm3 (0.0-0.4) 11/05/16 07:57 Basophils # (Manual) 0.0 K/mm3 (0.0-0.1) 11/05/16 07:57 Metamyelocytes # 0.0 K/mm3 11/05/16 07:57 Myelocytes # 0.0 K/mm3 11/05/16 07:57 Promyelocytes # 0.0 K/mm3 11/05/16 07:57 Blast Cells # 0.0 K/mm3 11/05/16 07:57 WBC Morphology Not Reportable 11/05/16 07:57 Hypersegmented Neuts Not Reportable 11/05/16 07:57 Hyposegmented Neuts Not Reportable 11/05/16 07:57 Hypogranular Neuts Not Reportable 11/05/16 07:57 Smudge Cells Few 11/05/16 07:57 Toxic Granulation Not Reportable 11/05/16 07:57 Toxic Vacuolation Not Reportable 11/05/16 07:57 Dohle Bodies Not Reportable 11/05/16 07:57 Pelger-Huet Anomaly Not Reportable 11/05/16 07:57 Kasie Rods Not Reportable 11/05/16 07:57 Platelet Estimate Appears increased 11/05/16 07:57 Clumped Platelets Not Reportable 11/05/16 07:57 Plt Clumps, EDTA Not Reportable 11/05/16 07:57 Large Platelets Not Reportable 11/05/16 07:57 Giant Platelets Not Reportable 11/05/16 07:57 Platelet Satelliting Not Reportable 11/05/16 07:57 Plt Morphology Comment Not Reportable 11/05/16 07:57 RBC Morphology Normal 11/05/16 07:57 Dimorphic RBCs Not Reportable 11/05/16 07:57 Polychromasia Not Reportable 11/05/16 07:57 Hypochromasia Not Reportable 11/05/16 07:57 Poikilocytosis Not Reportable 11/05/16 07:57 Anisocytosis Not Reportable 11/05/16 07:57 Microcytosis Not Reportable 11/05/16 07:57 Macrocytosis Not Reportable 11/05/16 07:57 Spherocytes Not Reportable 11/05/16 07:57 Pappenheimer Bodies Not Reportable 11/05/16 07:57 Sickle Cells Not Reportable 11/05/16 07:57 Target Cells Not Reportable 11/05/16 07:57 Tear Drop Cells Not Reportable 11/05/16 07:57 Ovalocytes Not Reportable 11/05/16 07:57 Helmet Cells Not Reportable 11/05/16 07:57 Yepez-[place] Bodies Not Reportable 11/05/16 07:57 [place] Rings Not Reportable 11/05/16 07:57 [place] Cells Not Reportable 11/05/16 07:57 Bite Cells Not Reportable 11/05/16 07:57 Crenated Cell Not Reportable 11/05/16 07:57 Elliptocytes Not Reportable 11/05/16 07:57 Acanthocytes (Spur) Not Reportable 11/05/16 07:57 Rouleaux Not Reportable 11/05/16 07:57 Hemoglobin C Crystals Not Reportable 11/05/16 07:57 Schistocytes Not Reportable 11/05/16 07:57 Malaria parasites Not Reportable 11/05/16 07:57 Jaime Bodies Not Reportable 11/05/16 07:57 Hem Pathologist Commnt No 11/05/16 07:57 Sodium 138 mmol/L (137-145) 11/09/16 07:04 Potassium 4.1 mmol/L (3.6-5.0) 11/09/16 07:04 Chloride 101.4 mmol/L (98-107) 11/09/16 07:04 Carbon Dioxide 24 mmol/L (22-30) 11/09/16 07:04 Anion Gap 17 mmol/L 11/09/16 07:04 BUN 9 mg/dL (9-20) 11/09/16 07:04 Creatinine 0.9 mg/dL (0.8-1.5) 11/09/16 07:04 Estimated GFR > 60 ml/min 11/09/16 07:04 BUN/Creatinine Ratio 10.00 % 11/09/16 07:04 Glucose 85 mg/dL (75-100) 11/09/16 07:04 POC Glucose 111 (70-105) H 11/02/16 14:21 Calcium 8.6 mg/dL (8.4-10.2) 11/09/16 07:04 Total Bilirubin 0.30 mg/dL (0.1-1.2) 11/02/16 14:28 AST 17 units/L (5-40) 11/02/16 14:28 ALT 7 units/L (7-56) 11/02/16 14:28 Alkaline Phosphatase 100 units/L (35-129) 11/02/16 14:28 Troponin T < 0.010 ng/mL (0.00-0.029) 11/02/16 20:20 Total Protein 7.8 g/dL (6.3-8.2) 11/02/16 14:28 Albumin 3.1 g/dL (3.9-5) L 11/02/16 14:28 Albumin/Globulin Ratio 0.7 % 11/02/16 14:28 Urine Color Yellow (Yellow) 11/02/16 16:34 Urine Turbidity Clear (Clear) 11/02/16 16:34 Urine pH 5.0 (5.0-7.0) 11/02/16 16:34 Ur Specific [place] 1.027 (1.003-1.030) 11/02/16 16:34 Urine Protein 30 mg/dl mg/dL (Negative) 11/02/16 16:34 Urine Glucose (UA) Neg mg/dL (Negative) 11/02/16 16:34 Urine Ketones Neg mg/dL (Negative) 11/02/16 16:34 Urine Blood Neg (Negative) 11/02/16 16:34 Urine Nitrite Neg (Negative) 11/02/16 16:34 Urine Bilirubin Neg (Negative) 11/02/16 16:34 Urine Urobilinogen 4.0 mg/dL (<2.0) 11/02/16 16:34 Ur Leukocyte Esterase Mod (Negative) 11/02/16 16:34 Urine WBC (Auto) 63.0 /HPF (0.0-6.0) H 11/02/16 16:34 Urine RBC (Auto) 16.0 /HPF (0.0-6.0) 11/02/16 16:34 U Epithel Cells (Auto) 5.0 /HPF (0-13.0) 11/02/16 16:34 Urine Mucus Few /HPF 11/02/16 16:34 Phenytoin 0.8 mg/L (10.0-20.0) L 11/02/16 14:28 Valproic Acid < 2.8 ug/mL (50-100) L 11/02/16 14:28
[2016-11-10] MEDS: CYTOVENE 500 MG in NACL 0.9% 250ML 250 ML IV SCH ×2 (09:24→20:11)
[2016-11-10] MEDS: DIFLUCAN PO SCH (09:25)
[2016-11-10] MEDS: KEPPRA PO SCH ×2 (09:25→22:06)
[2016-11-10] MEDS: VIREAD PO SCH (09:25)
[2016-11-10] MEDS: NORVIR PO SCH (09:25)
[2016-11-10] MEDS: PREZISTA PO SCH (09:25)
[2016-11-10] MEDS: EMTRIVA PO SCH (09:25)
[2016-11-10] MEDS: BACTRIM DS PO SCH (09:25)
--- NOTE | 2016-11-10 10:57 | Progress Note ---
Assessment and Plan - Patient Problems (1) Herpes, genital Current Visit: Yes Status: Acute Qualifiers: Herpes simplex infection site: H Plan to address problem: Presumptive diagnosis, but [id number] improvement with Acyclovir or Ganciclovir. Recommend biopsy of gluteal and/ or penile lesions, ruling out condyloma vs. malignancy vs. other. Continue current antiviral therapy for now. (2) AIDS Current Visit: Yes Status: Acute Plan to address problem: Continue HAART and OI prophylaxis, resuming home regimen of Descovy and Prezcobix at discharge. (3) Thrush, oral Current Visit: Yes Status: Acute Plan to address problem: Completing a 14-day course of oral Fluconazole, through November 13, 2016. Subjective Date of service: 11/10/16 Principal diagnosis: Genital HSV Outbreak Interval history: Remains afebrile. Continue local gluteal pain. Otherwise, no new complaints. Objective - Constitutional Vitals: Vital Signs Temp Pulse Resp BP Pulse Ox 98.2 F 70 18 116/64 97 11/10/16 08:00 11/10/16 08:00 11/10/16 08:00 11/10/16 08:00 11/10/16 08:00 Temperature -Last 24 Hours Temperature 98.2 F Temperature 98.9 F Temperature 99.7 F Temperature 99.3 F General appearance: Present: no acute distress - EENT Eyes: no conjunctival injection - Respiratory Respiratory effort: normal Respiratory: bilateral: CTA - Cardiovascular Rhythm: regular Heart Sounds: Present: S1 & S2 Extremities: No edema - Gastrointestinal General gastrointestinal: Present: non-distended Rectal Exam: other (necrotic skin changes with malodorous drainage in gluteal fold, little improvement over previous exam; also no improvement of penile lesion) - Integumentary Integumentary: clear, no jaundice - Neurologic Neurologic: moves all extremities - Psychiatric Psychiatric: appropriate mood/affect - Labs CBC & Chem 7: 11/05/16 07:57 11/09/16 07:04 Labs: Microbiology 11/06/16 Unknown Stool C. difficile DNA Amplification - Final (negative) 11/02/16 14:28 Serum Cryptococcal Antigen - Final (negative)
[2016-11-10] MEDS: ZOFRAN IV PRN ×2 (14:05→22:04)
[2016-11-11] MEDS: MORPHINE IV PRN ×5 (02:33→20:36)
--- NOTE | 2016-11-11 08:52 | Progress Note ---
Assessment and Plan Assessment and plan: 36 YO Male with MD, CAD S/P Stent placement, Seizure Disorder, AIDS, HSV presents with blood in his stool. Also, the patient was told by his roommate he had a generalized tonic-clonic seizure. Patient has large amounts of ulcers in his genital area due to herpes and is a source of the blood that he saw in the toilet. Herpes, genital Infectious disease input appreciated, continue antivirals, Patient will need to continue IV antivirals and so all the lesions crust over He is a poor candidate for home IV antimicrobials, also patient has refused home healthy as he does not want anyone coming to his house should have improved by now if solely herpetic, will get surgery consult for perirectal biopsy jean- Rectal Ulcers not improving, unclear what the etiology is, will consult surgery for biopsy of the rectal area ID input appreciated AIDS CD4 36 in September 2016 Continue HAART. Infectious disease input appreciated. Crypt ag negative Thrush, oral Current Visit: Yes Status: Acute Plan to address problem: Completing a 10-14-day Fluconazole course. per ID Status epilepticus Normal CT of the head Neurology input appreciated MRI brain showed Tiny chronic lacunar infarct in the left callie. There is no other significant intracranial finding. Continue Keppra Metabolic Encephalopathy acute Most likely due to post ictal state, now resolved Urinary Tract Infection continue Keflex, will need 7-10 day course ; Hematochezia/ GIB most likely due to rectal ulcer, hemoglobin is stable. Loose stools If it recurs we'll send stool for C. difficile DVT prophylaxis Lovenox History Interval history: He continues to complain of pain and drainage from his genital rectal ulcers. Denies fevers, denies chills, denies confusion, denies focal weakness, denies any further episodes of seizure Hospitalist Physical - Physical exam Narrative exam: General: Patient appears well in no distress HEENT: MMM, EOMI cardiac: S1-S2 heard lungs: clear to auscultation, abdomen: soft, nontender, nondistended bowel sounds positive extremities: no edema clubbing or cyanosis Multiple genital and rectal ulcers which there is drainage and foul odor Skin: no rash or lesion Neuro: no focal deficit Psych: appropriate behavior and mood, cognition intact - Constitutional Vitals: Temp Pulse Resp BP Pulse Ox 99.3 F 77 20 117/61 100 11/10/16 20:00 11/10/16 20:00 11/11/16 02:33 11/10/16 20:00 11/10/16 20:00 General appearance: Present: no acute distress, well-nourished Results - Labs CBC & Chem 7: 11/05/16 07:57 11/09/16 07:04 Labs: Laboratory Last Values WBC 6.7 K/mm3 (4.5-11.0) 11/05/16 07:57 RBC 3.02 M/mm3 (3.65-5.03) L 11/05/16 07:57 Hgb 8.7 gm/dl (11.8-15.2) L 11/05/16 07:57 Hct 26.3 % (35.5-45.6) L 11/05/16 07:57 MCV 87 fl (84-94) 11/05/16 07:57 MCH 29 pg (28-32) 11/05/16 07:57 MCHC 33 % (32-34) 11/05/16 07:57 RDW 13.0 % (13.2-15.2) L 11/05/16 07:57 Plt Count 530 K/mm3 (140-440) H 11/05/16 07:57 Lymph % (Auto) [employer] 11/05/16 07:57 [place] % (Auto) [employer] 11/05/16 07:57 Eos % (Auto) [employer] 11/05/16 07:57 Baso % (Auto) [employer] 11/05/16 07:57 Lymph # [employer] 11/05/16 07:57 [place] # [employer] 11/05/16 07:57 Eos # [employer] 11/05/16 07:57 Baso # [employer] 11/05/16 07:57 Add Manual Diff Complete 11/05/16 07:57 Total Counted 100 11/05/16 07:57 Seg Neutrophils % [employer] 11/05/16 07:57 Seg Neuts % (Manual) 56.0 % (40.0-70.0) 11/05/16 07:57 Band Neutrophils % 1.0 % 11/05/16 07:57 Lymphocytes % (Manual) 22.0 % (13.4-35.0) 11/05/16 07:57 Reactive Lymphs % (Man) 0 % 11/05/16 07:57 Monocytes % (Manual) 20.0 % (0.0-7.3) H 11/05/16 07:57 Eosinophils % (Manual) 1.0 % (0.0-4.3) 11/05/16 07:57 Basophils % (Manual) 0 % (0.0-1.8) 11/05/16 07:57 Metamyelocytes % 0 % 11/05/16 07:57 Myelocytes % 0 % 11/05/16 07:57 Promyelocytes % 0 % 11/05/16 07:57 Blast Cells % 0 % 11/05/16 07:57 Nucleated RBC % Not Reportable 11/05/16 07:57 Seg Neutrophils # [employer] 11/05/16 07:57 Seg Neutrophils # Man 3.8 K/mm3 (1.8-7.7) 11/05/16 07:57 Band Neutrophils # 0.1 K/mm3 11/05/16 07:57 Lymphocytes # (Manual) 1.5 K/mm3 (1.2-5.4) 11/05/16 07:57 Abs React Lymphs (Man) 0.0 K/mm3 11/05/16 07:57 Monocytes # (Manual) 1.3 K/mm3 (0.0-0.8) H 11/05/16 07:57 Eosinophils # (Manual) 0.1 K/mm3 (0.0-0.4) 11/05/16 07:57 Basophils # (Manual) 0.0 K/mm3 (0.0-0.1) 11/05/16 07:57 Metamyelocytes # 0.0 K/mm3 11/05/16 07:57 Myelocytes # 0.0 K/mm3 11/05/16 07:57 Promyelocytes # 0.0 K/mm3 11/05/16 07:57 Blast Cells # 0.0 K/mm3 11/05/16 07:57 WBC Morphology Not Reportable 11/05/16 07:57 Hypersegmented Neuts Not Reportable 11/05/16 07:57 Hyposegmented Neuts Not Reportable 11/05/16 07:57 Hypogranular Neuts Not Reportable 11/05/16 07:57 Smudge Cells Few 11/05/16 07:57 Toxic Granulation Not Reportable 11/05/16 07:57 Toxic Vacuolation Not Reportable 11/05/16 07:57 Dohle Bodies Not Reportable 11/05/16 07:57 Pelger-Huet Anomaly Not Reportable 11/05/16 07:57 Kasie Rods Not Reportable 11/05/16 07:57 Platelet Estimate Appears increased 11/05/16 07:57 Clumped Platelets Not Reportable 11/05/16 07:57 Plt Clumps, EDTA Not Reportable 11/05/16 07:57 Large Platelets Not Reportable 11/05/16 07:57 Giant Platelets Not Reportable 11/05/16 07:57 Platelet Satelliting Not Reportable 11/05/16 07:57 Plt Morphology Comment Not Reportable 11/05/16 07:57 RBC Morphology Normal 11/05/16 07:57 Dimorphic RBCs Not Reportable 11/05/16 07:57 Polychromasia Not Reportable 11/05/16 07:57 Hypochromasia Not Reportable 11/05/16 07:57 Poikilocytosis Not Reportable 11/05/16 07:57 Anisocytosis Not Reportable 11/05/16 07:57 Microcytosis Not Reportable 11/05/16 07:57 Macrocytosis Not Reportable 11/05/16 07:57 Spherocytes Not Reportable 11/05/16 07:57 Pappenheimer Bodies Not Reportable 11/05/16 07:57 Sickle Cells Not Reportable 11/05/16 07:57 Target Cells Not Reportable 11/05/16 07:57 Tear Drop Cells Not Reportable 11/05/16 07:57 Ovalocytes Not Reportable 11/05/16 07:57 Helmet Cells Not Reportable 11/05/16 07:57 Yepez-[place] Bodies Not Reportable 11/05/16 07:57 [place] Rings Not Reportable 11/05/16 07:57 [place] Cells Not Reportable 11/05/16 07:57 Bite Cells Not Reportable 11/05/16 07:57 Crenated Cell Not Reportable 11/05/16 07:57 Elliptocytes Not Reportable 11/05/16 07:57 Acanthocytes (Spur) Not Reportable 11/05/16 07:57 Rouleaux Not Reportable 11/05/16 07:57 Hemoglobin C Crystals Not Reportable 11/05/16 07:57 Schistocytes Not Reportable 11/05/16 07:57 Malaria parasites Not Reportable 11/05/16 07:57 Jaime Bodies Not Reportable 11/05/16 07:57 Hem Pathologist Commnt No 11/05/16 07:57 Sodium 138 mmol/L (137-145) 11/09/16 07:04 Potassium 4.1 mmol/L (3.6-5.0) 11/09/16 07:04 Chloride 101.4 mmol/L (98-107) 11/09/16 07:04 Carbon Dioxide 24 mmol/L (22-30) 11/09/16 07:04 Anion Gap 17 mmol/L 11/09/16 07:04 BUN 9 mg/dL (9-20) 11/09/16 07:04 Creatinine 0.9 mg/dL (0.8-1.5) 11/09/16 07:04 Estimated GFR > 60 ml/min 11/09/16 07:04 BUN/Creatinine Ratio 10.00 % 11/09/16 07:04 Glucose 85 mg/dL (75-100) 11/09/16 07:04 POC Glucose 111 (70-105) H 11/02/16 14:21 Calcium 8.6 mg/dL (8.4-10.2) 11/09/16 07:04 Total Bilirubin 0.30 mg/dL (0.1-1.2) 11/02/16 14:28 AST 17 units/L (5-40) 11/02/16 14:28 ALT 7 units/L (7-56) 11/02/16 14:28 Alkaline Phosphatase 100 units/L (35-129) 11/02/16 14:28 Troponin T < 0.010 ng/mL (0.00-0.029) 11/02/16 20:20 Total Protein 7.8 g/dL (6.3-8.2) 11/02/16 14:28 Albumin 3.1 g/dL (3.9-5) L 11/02/16 14:28 Albumin/Globulin Ratio 0.7 % 11/02/16 14:28 Urine Color Yellow (Yellow) 11/02/16 16:34 Urine Turbidity Clear (Clear) 11/02/16 16:34 Urine pH 5.0 (5.0-7.0) 11/02/16 16:34 Ur Specific [place] 1.027 (1.003-1.030) 11/02/16 16:34 Urine Protein 30 mg/dl mg/dL (Negative) 11/02/16 16:34 Urine Glucose (UA) Neg mg/dL (Negative) 11/02/16 16:34 Urine Ketones Neg mg/dL (Negative) 11/02/16 16:34 Urine Blood Neg (Negative) 11/02/16 16:34 Urine Nitrite Neg (Negative) 11/02/16 16:34 Urine Bilirubin Neg (Negative) 11/02/16 16:34 Urine Urobilinogen 4.0 mg/dL (<2.0) 11/02/16 16:34 Ur Leukocyte Esterase Mod (Negative) 11/02/16 16:34 Urine WBC (Auto) 63.0 /HPF (0.0-6.0) H 11/02/16 16:34 Urine RBC (Auto) 16.0 /HPF (0.0-6.0) 11/02/16 16:34 U Epithel Cells (Auto) 5.0 /HPF (0-13.0) 11/02/16 16:34 Urine Mucus Few /HPF 11/02/16 16:34 Phenytoin 0.8 mg/L (10.0-20.0) L 11/02/16 14:28 Valproic Acid < 2.8 ug/mL (50-100) L 11/02/16 14:28
[2016-11-11] MEDS: CYTOVENE 500 MG in NACL 0.9% 250ML 250 ML IV SCH ×2 (09:30→20:30)
[2016-11-11] MEDS: VIREAD PO SCH (09:48)
[2016-11-11] MEDS: KEPPRA PO SCH ×2 (09:48→23:01)
[2016-11-11] MEDS: NORVIR PO SCH (09:48)
[2016-11-11] MEDS: EMTRIVA PO SCH (09:48)
[2016-11-11] MEDS: BACTRIM DS PO SCH (09:48)
[2016-11-11] MEDS: DIFLUCAN PO SCH (09:48)
[2016-11-11] MEDS: PREZISTA PO SCH (09:49)
--- NOTE | 2016-11-11 13:05 | Progress Note ---
Assessment and Plan Consulted to see this 36 y/o male as described below. anal lesions. for biopsy. will schedule Assessment and Plan - Patient Problems (1) Herpes, genital Current Visit: Yes Status: Acute Qualifiers: Herpes simplex infection site: H Plan to address problem: Presumptive diagnosis, but [id number] improvement with Acyclovir or Ganciclovir. Recommend biopsy of gluteal and/ or penile lesions, ruling out condyloma vs. malignancy vs. other. Continue current antiviral therapy for now. (2) AIDS Current Visit: Yes Status: Acute Plan to address problem: Continue HAART and OI prophylaxis, resuming home regimen of Descovy and Prezcobix at discharge. (3) Thrush, oral Current Visit: Yes Status: Acute Plan to address problem: Completing a 14-day course of oral Fluconazole, through November 13, 2016. Subjective Date of service: 11/10/16 Principal diagnosis: Genital HSV Outbreak Interval history: Remains afebrile. Continue local gluteal pain. Otherwise, no new complaints. Objective Vital Signs - 12hr 11/11/16 11/11/16 02:33 08:00 Temperature 98.7 F Pulse Rate 74 Respiratory 20 18 Rate Blood Pressure 116/68 O2 Sat by Pulse 98 Oximetry - Labs 11/05/16 07:57 11/09/16 07:04
--- NOTE | 2016-11-11 13:43 | Progress Note ---
Assessment and Plan - Patient Problems (1) Herpes, genital Current Visit: Yes Status: Acute Qualifiers: Herpes simplex infection site: H Plan to address problem: 1. Continue Ganciclovir. 2. Viral cultures were never sent. Await findings of biopsy. 3. Follow renal function closely. (2) AIDS Current Visit: Yes Status: Acute Plan to address problem: Continue HAART/ OI prophylaxis. (3) Thrush, oral Current Visit: Yes Status: Acute Plan to address problem: Completing a 10-day course of Fluconazole, currently day #9. Subjective Date of service: 11/11/16 Principal diagnosis: Genital HSV Outbreak Interval history: Remains afebrile, stable. Gluteal biopsy is scheduled for tomorrow. No new complaints. Objective - Constitutional Vitals: Vital Signs Temp Pulse Resp BP Pulse Ox 98.7 F 74 18 116/68 98 11/11/16 08:00 11/11/16 08:00 11/11/16 08:00 11/11/16 08:00 11/11/16 08:00 Temperature -Last 24 Hours Temperature 98.7 F Temperature 99.3 F Temperature 98.4 F General appearance: Present: no acute distress - EENT Eyes: no conjunctival injection - Respiratory Respiratory effort: normal Respiratory: bilateral: CTA - Cardiovascular Rhythm: regular Heart Sounds: Present: S1 & S2 - Gastrointestinal General gastrointestinal: Present: soft, non-tender, non-distended Rectal Exam: other (unchanged, malodorous gluteal fold lesions, also penile ulceration is unchanged) - Integumentary Integumentary: clear, no rash - Neurologic Neurologic: no focal deficits - Psychiatric Psychiatric: appropriate mood/affect - Labs CBC & Chem 7: 11/05/16 07:57 11/09/16 07:04 Labs: Microbiology 11/06/16 Unknown Stool C. difficile DNA Amplification - Final 11/02/16 14:28 Serum Cryptococcal Antigen - Final
--- NOTE | 2016-11-11 16:48 | Anesthesia Consultation ---
Anesthesia Consult and Med Hx Date of service: 11/11/16 - Airway Anesthetic Teeth Evaluation: Good ROM Head & Neck: Adequate Mental/Hyoid Distance: Adequate Mallampati Class: Class II Intubation Access Assessment: Probably Good - Pre-Operative Health Status ASA Pre-Surgery Classification: ASA3 Proposed Anesthetic Plan: General - Pulmonary Hx Asthma: No COPD: No Hx Pneumonia: No - Cardiovascular System Hx Coronary Artery Disease: Yes Hx Heart Attack/AMI: Yes (2015) Hx Percutaneous Transluminal Coronary Angioplasty (PTCA): Yes (2016) Hx Pacemaker: No Hx Internal Defibrillator: No - Central Nervous System Hx Seizures: Yes (tonic-clonic seizure since teenager, last 10 days ago) Hx Psychiatric Problems: Yes (claustrophobia) - Gastrointestinal Hx Ulcer: No (h/o rectal bleeding) - Endocrine Hx End Stage Renal Disease: No - Additional Comments Anesthesia Medical History Comments: AIDS/HIV, genital HSV, rectal fissure
[2016-11-11] MEDS: NACL 0.45% 1000 ML 1,000 ML IV SCH (20:30)
[2016-11-11] MEDS: TYLENOL #3 PO PRN (23:01)
[2016-11-12] MEDS: MORPHINE IV PRN ×3 (03:05→21:33)
[2016-11-12] MEDS ORDERED: PEPCID IV NR (06:00)
[2016-11-12 06:42] LABS: Anion Gap 21 mmol/L; Blood Urea Nitrogen 10 mg/dL (9-20); Calcium 8.9 mg/dL (8.4-10.2); Carbon Dioxide 21 mmol/L (22-30); Chloride 102.3 mmol/L (98-107); Glucose 82 mg/dL (75-100); Potassium 4.4 mmol/L (3.6-5.0); Sodium 140 mmol/L (137-145)
[2016-11-12] MEDS ORDERED: LACTATED RINGERS 1,000 ML IV SCH (07:00)
[2016-11-12] MEDS ORDERED: VERSED IV NR (07:00)
[2016-11-12] MEDS ORDERED: ZOFRAN ONE (07:10)
[2016-11-12] MEDS ORDERED: XYLOCAINE MPF 2% ONE (07:10)
[2016-11-12] MEDS ORDERED: QUELICIN ONE (07:10)
[2016-11-12] MEDS ORDERED: DECADRON ONE (07:10)
[2016-11-12] MEDS ORDERED: SUBLIMAZE ONE (08:06)
[2016-11-12] MEDS ORDERED: DIPRIVAN 10 MG/ML IV ONE ×2 (08:07→10:13)
[2016-11-12] MEDS ORDERED: MARCAINE 0.5% 0 ML INFILTRATI ONE (08:17)
[2016-11-12] MEDS ORDERED: MARCAINE-EPI/PF 0.5%-1:200,000 INFILTRATI ONE (08:17)
[2016-11-12] MEDS: CYTOVENE 500 MG in NACL 0.9% 250ML 250 ML IV SCH ×2 (08:23→21:34)
[2016-11-12] MEDS ORDERED: VERSED ONE (09:24)
[2016-11-12] MEDS ORDERED: NACL 0.9% 1000 ML 1,000 ML ONE (09:25)
[2016-11-12] MEDS ORDERED: NACL 0.9% IR ONE (09:52)
[2016-11-12] MEDS ORDERED: MARCAINE-EPI 0.5%-1:200,000 INFILTRATI ONE (09:52)
--- NOTE | 2016-11-12 09:57 | Progress Note ---
Assessment and Plan Assessment and plan: 36 YO Male with [place], CAD S/P Stent placement, Seizure Disorder, AIDS, HSV presents with blood in his stool. Also, the patient was told by his roommate he had a generalized tonic-clonic seizure. Patient has large amounts of ulcers in his genital area due to herpes and is a source of the blood that he saw in the toilet. Herpes, genital Infectious disease input appreciated, continue antivirals, Patient will need to continue IV antivirals and so all the lesions crust over He is a poor candidate for home IV antimicrobials, also patient has refused home healthy as he does not want anyone coming to his house should have improved by now if solely herpetic, will get surgery consult for perirectal biopsy jean- Rectal Ulcers not improving, unclear what the etiology is, surgery consult appreciated, Dr Oron[place] to schedule for biopsy of the rectal area ID input appreciated AIDS CD4 36 in September 2016 Continue HAART. Infectious disease input appreciated. Crypt ag negative Thrush, oral Current Visit: Yes Status: Acute Plan to address problem: Completing a 10-14-day Fluconazole course. per ID Status epilepticus Normal CT of the head Neurology input appreciated MRI brain showed Tiny chronic lacunar infarct in the left callie. There is no other significant intracranial finding. Continue Keppra Metabolic Encephalopathy acute Most likely due to post ictal state, now resolved Urinary Tract Infection has completed a course of abx with Keflex ; Hematochezia/ GIB most likely due to rectal ulcer, hemoglobin is stable. Loose stools If it recurs we'll send stool for C. difficile DVT prophylaxis Lovenox History Interval history: He continues to complain of pain and drainage from his genital rectal ulcers. Denies fevers, denies chills, denies confusion, denies focal weakness, denies any further episodes of seizure Hospitalist Physical - Physical exam Narrative exam: General: Patient appears well in no distress HEENT: MMM, EOMI cardiac: S1-S2 heard lungs: clear to auscultation, abdomen: soft, nontender, nondistended bowel sounds positive extremities: no edema clubbing or cyanosis Multiple genital and rectal ulcers which there is drainage and foul odor Skin: no rash or lesion Neuro: no focal deficit Psych: appropriate behavior and mood, cognition intact - Constitutional Vitals: Temp Pulse Resp BP Pulse Ox 99.7 F H 77 16 116/62 99 11/12/16 07:30 11/12/16 07:30 11/12/16 07:30 11/12/16 07:30 11/12/16 07:30 General appearance: Present: no acute distress Results - Labs CBC & Chem 7: 11/05/16 07:57 11/12/16 06:04 Labs: Laboratory Last Values WBC 6.7 K/mm3 (4.5-11.0) 11/05/16 07:57 RBC 3.02 M/mm3 (3.65-5.03) L 11/05/16 07:57 Hgb 8.7 gm/dl (11.8-15.2) L 11/05/16 07:57 Hct 26.3 % (35.5-45.6) L 11/05/16 07:57 MCV 87 fl (84-94) 11/05/16 07:57 MCH 29 pg (28-32) 11/05/16 07:57 MCHC 33 % (32-34) 11/05/16 07:57 RDW 13.0 % (13.2-15.2) L 11/05/16 07:57 Plt Count 530 K/mm3 (140-440) H 11/05/16 07:57 Lymph % (Auto) Meeting Manager 11/05/16 07:57 [place] % (Auto) Meeting Manager 11/05/16 07:57 Eos % (Auto) Meeting Manager 11/05/16 07:57 Baso % (Auto) Meeting Manager 11/05/16 07:57 Lymph # Meeting Manager 11/05/16 07:57 [place] # Meeting Manager 11/05/16 07:57 Eos # Meeting Manager 11/05/16 07:57 Baso # Meeting Manager 11/05/16 07:57 Add Manual Diff Complete 11/05/16 07:57 Total Counted 100 11/05/16 07:57 Seg Neutrophils % Meeting Manager 11/05/16 07:57 Seg Neuts % (Manual) 56.0 % (40.0-70.0) 11/05/16 07:57 Band Neutrophils % 1.0 % 11/05/16 07:57 Lymphocytes % (Manual) 22.0 % (13.4-35.0) 11/05/16 07:57 Reactive Lymphs % (Man) 0 % 11/05/16 07:57 Monocytes % (Manual) 20.0 % (0.0-7.3) H 11/05/16 07:57 Eosinophils % (Manual) 1.0 % (0.0-4.3) 11/05/16 07:57 Basophils % (Manual) 0 % (0.0-1.8) 11/05/16 07:57 Metamyelocytes % 0 % 11/05/16 07:57 Myelocytes % 0 % 11/05/16 07:57 Promyelocytes % 0 % 11/05/16 07:57 Blast Cells % 0 % 11/05/16 07:57 Nucleated RBC % Not Reportable 11/05/16 07:57 Seg Neutrophils # Meeting Manager 11/05/16 07:57 Seg Neutrophils # Man 3.8 K/mm3 (1.8-7.7) 11/05/16 07:57 Band Neutrophils # 0.1 K/mm3 11/05/16 07:57 Lymphocytes # (Manual) 1.5 K/mm3 (1.2-5.4) 11/05/16 07:57 Abs React Lymphs (Man) 0.0 K/mm3 11/05/16 07:57 Monocytes # (Manual) 1.3 K/mm3 (0.0-0.8) H 11/05/16 07:57 Eosinophils # (Manual) 0.1 K/mm3 (0.0-0.4) 11/05/16 07:57 Basophils # (Manual) 0.0 K/mm3 (0.0-0.1) 11/05/16 07:57 Metamyelocytes # 0.0 K/mm3 11/05/16 07:57 Myelocytes # 0.0 K/mm3 11/05/16 07:57 Promyelocytes # 0.0 K/mm3 11/05/16 07:57 Blast Cells # 0.0 K/mm3 11/05/16 07:57 WBC Morphology Not Reportable 11/05/16 07:57 Hypersegmented Neuts Not Reportable 11/05/16 07:57 Hyposegmented Neuts Not Reportable 11/05/16 07:57 Hypogranular Neuts Not Reportable 11/05/16 07:57 Smudge Cells Few 11/05/16 07:57 Toxic Granulation Not Reportable 11/05/16 07:57 Toxic Vacuolation Not Reportable 11/05/16 07:57 Dohle Bodies Not Reportable 11/05/16 07:57 Pelger-Huet Anomaly Not Reportable 11/05/16 07:57 Kasie Rods Not Reportable 11/05/16 07:57 Platelet Estimate Appears increased 11/05/16 07:57 Clumped Platelets Not Reportable 11/05/16 07:57 Plt Clumps, EDTA Not Reportable 11/05/16 07:57 Large Platelets Not Reportable 11/05/16 07:57 Giant Platelets Not Reportable 11/05/16 07:57 Platelet Satelliting Not Reportable 11/05/16 07:57 Plt Morphology Comment Not Reportable 11/05/16 07:57 RBC Morphology Normal 11/05/16 07:57 Dimorphic RBCs Not Reportable 11/05/16 07:57 Polychromasia Not Reportable 11/05/16 07:57 Hypochromasia Not Reportable 11/05/16 07:57 Poikilocytosis Not Reportable 11/05/16 07:57 Anisocytosis Not Reportable 11/05/16 07:57 Microcytosis Not Reportable 11/05/16 07:57 Macrocytosis Not Reportable 11/05/16 07:57 Spherocytes Not Reportable 11/05/16 07:57 Pappenheimer Bodies Not Reportable 11/05/16 07:57 Sickle Cells Not Reportable 11/05/16 07:57 Target Cells Not Reportable 11/05/16 07:57 Tear Drop Cells Not Reportable 11/05/16 07:57 Ovalocytes Not Reportable 11/05/16 07:57 Helmet Cells Not Reportable 11/05/16 07:57 Yepez-[place] Bodies Not Reportable 11/05/16 07:57 [place] Rings Not Reportable 11/05/16 07:57 [place] Cells Not Reportable 11/05/16 07:57 Bite Cells Not Reportable 11/05/16 07:57 Crenated Cell Not Reportable 11/05/16 07:57 Elliptocytes Not Reportable 11/05/16 07:57 Acanthocytes (Spur) Not Reportable 11/05/16 07:57 Rouleaux Not Reportable 11/05/16 07:57 Hemoglobin C Crystals Not Reportable 11/05/16 07:57 Schistocytes Not Reportable 11/05/16 07:57 Malaria parasites Not Reportable 11/05/16 07:57 Jaime Bodies Not Reportable 11/05/16 07:57 Hem Pathologist Commnt No 11/05/16 07:57 Sodium 140 mmol/L (137-145) 11/12/16 06:04 Potassium 4.4 mmol/L (3.6-5.0) 11/12/16 06:04 Chloride 102.3 mmol/L (98-107) 11/12/16 06:04 Carbon Dioxide 21 mmol/L (22-30) L 11/12/16 06:04 Anion Gap 21 mmol/L 11/12/16 06:04 BUN 10 mg/dL (9-20) 11/12/16 06:04 Creatinine 0.8 mg/dL (0.8-1.5) 11/12/16 06:04 Estimated GFR > 60 ml/min 11/12/16 06:04 BUN/Creatinine Ratio 12.50 % 11/12/16 06:04 Glucose 82 mg/dL (75-100) 11/12/16 06:04 POC Glucose 111 (70-105) H 11/02/16 14:21 Calcium 8.9 mg/dL (8.4-10.2) 11/12/16 06:04 Total Bilirubin 0.30 mg/dL (0.1-1.2) 11/02/16 14:28 AST 17 units/L (5-40) 11/02/16 14:28 ALT 7 units/L (7-56) 11/02/16 14:28 Alkaline Phosphatase 100 units/L (35-129) 11/02/16 14:28 Troponin T < 0.010 ng/mL (0.00-0.029) 11/02/16 20:20 Total Protein 7.8 g/dL (6.3-8.2) 11/02/16 14:28 Albumin 3.1 g/dL (3.9-5) L 11/02/16 14:28 Albumin/Globulin Ratio 0.7 % 11/02/16 14:28 Urine Color Yellow (Yellow) 11/02/16 16:34 Urine Turbidity Clear (Clear) 11/02/16 16:34 Urine pH 5.0 (5.0-7.0) 11/02/16 16:34 Ur Specific [place] 1.027 (1.003-1.030) 11/02/16 16:34 Urine Protein 30 mg/dl mg/dL (Negative) 11/02/16 16:34 Urine Glucose (UA) Neg mg/dL (Negative) 11/02/16 16:34 Urine Ketones Neg mg/dL (Negative) 11/02/16 16:34 Urine Blood Neg (Negative) 11/02/16 16:34 Urine Nitrite Neg (Negative) 11/02/16 16:34 Urine Bilirubin Neg (Negative) 11/02/16 16:34 Urine Urobilinogen 4.0 mg/dL (<2.0) 11/02/16 16:34 Ur Leukocyte Esterase Mod (Negative) 11/02/16 16:34 Urine WBC (Auto) 63.0 /HPF (0.0-6.0) H 11/02/16 16:34 Urine RBC (Auto) 16.0 /HPF (0.0-6.0) 11/02/16 16:34 U Epithel Cells (Auto) 5.0 /HPF (0-13.0) 11/02/16 16:34 Urine Mucus Few /HPF 11/02/16 16:34 Phenytoin 0.8 mg/L (10.0-20.0) L 11/02/16 14:28 Valproic Acid < 2.8 ug/mL (50-100) L 11/02/16 14:28
[2016-11-12] MEDS ORDERED: DILAUDID ONE (11:10)
[2016-11-12] MEDS: DILAUDID IV PRN ×2 (11:15→11:24)
--- NOTE | 2016-11-12 11:33 | Post Anesthesia Evaluation ---
- Post Anesthesia Evaluation Patient Participated: Yes Airway Patent: Yes Stable Respiratory Function: Yes Nausea/Vomiting: No Temp > 96.8F: Yes Pain Manageable: Yes Adequeate Hydration: Yes Anesthesia Complications: No Block Receding Appropriately: Not Applicable Patient on Ventilator: No
--- NOTE | 2016-11-12 12:12 | Consultation ---
History of Present Illness - Reason for Consult Consult date: 11/12/16 seizure - History of Present Illness patient is seen and further assessed no current seizures continue same dose of iv keppra plan EEG will follow Past History Past Medical History: acute RI, CAD, HIV/AIDS, seizures, other (Genital HS; Rectal Fissure) Past Surgical History: Other (stent placement, fissure, colon mass ) Social history: single, other (lives with friends). denies: smoking, alcohol abuse, prescription drug abuse Family history: cancer (grandmother with colon CA), hypertension Medications and Allergies Allergies Allergy/AdvReac Type Severity Reaction Status Date / Time No Known Allergies Allergy Unverified 11/02/16 14:19 Home Medications Medication Instructions Recorded Confirmed Last Taken Type Acyclovir TID 11/03/16 Unknown History Ambien PO HS 11/03/16 Unknown History Cerebyx DAILY 11/03/16 Unknown History Descovy 200-25 mg Tablet PO 11/03/16 Unknown History HYDROcodone/ACETAMINOPHEN PO Q4HR PRN 11/03/16 Unknown History Prezcobix 800 mg-150 mg (Nf) PO DAILY 11/03/16 Unknown History Active Meds: Active Medications Acetaminophen (Tylenol) 650 mg PO Q4H PRN PRN Reason: Pain MILD(1-3)/Fever >100.5/MORAN Acetaminophen/Codeine Phosphate (Tylenol #3) 1 tab PO Q6H PRN PRN Reason: Pain, Moderate (4-6) Last Admin: 11/11/16 23:01 Dose: 1 tab Albuterol (Proventil) 2.5 mg IH Q4H PRN PRN Reason: Shortness Of Breath Bisacodyl (Dulcolax) 10 mg VA QDAY PRN PRN Reason: Constipation unrelieved by MOM Darunavir (Prezista) 800 mg PO QDAY [facility] Last Admin: 11/11/16 09:49 Dose: 800 mg Emtricitabine (Emtriva) 200 mg PO QDAY JAMES Last Admin: 11/11/16 09:48 Dose: 200 mg Famotidine (Pepcid) 20 mg IV PREOP NR Stop: 11/12/16 23:00 Fluconazole (Diflucan) 100 mg PO QDAY JAMES Last Admin: 11/11/16 09:48 Dose: 100 mg Sodium Chloride (Nacl 0.45% 1000 Ml) 1,000 mls @ 42 mls/hr IV DIRECT JAMES Last Admin: 11/11/16 20:30 Dose: 42 mls/hr Ganciclovir Sodium 500 mg/ (Sodium Chloride) 250 mls @ 100 mls/hr IV Q12H [facility] Last Admin: 11/12/16 08:23 Dose: 100 mls/hr Lactated Ringer's (Lactated Ringers) 1,000 mls @ 100 mls/hr IV DIRECT JAMES Levetiracetam (Keppra) 500 mg PO BID [facility] Last Admin: 11/11/16 23:01 Dose: 500 mg Magnesium Hydroxide (Milk Of Magnesia) 30 ml PO Q4H PRN PRN Reason: Constipation Midazolam HCl (Versed) 2 mg IV PREOP NR Stop: 11/12/16 23:59 Morphine Sulfate (Morphine) 2 mg IV Q4H PRN PRN Reason: Pain, Moderate (4-6) Last Admin: 11/12/16 08:22 Dose: 2 mg Ondansetron HCl (Zofran) 4 mg IV Q8H PRN PRN Reason: N/V unrelieved by Nadege Last Admin: 11/10/16 22:04 Dose: 4 mg Oxycodone/Acetaminophen (Percocet 5/325) 1 tab PO Q4H PRN PRN Reason: Pain, Moderate (4-6) Last Admin: 11/09/16 19:05 Dose: 1 tab Ritonavir (Norvir) 100 mg PO QDAY [facility] Last Admin: 11/11/16 09:48 Dose: 100 mg Tenofovir Disoproxil Fumarate (Viread) 300 mg PO QDAY [facility] Last Admin: 11/11/16 09:48 Dose: 300 mg Trimethoprim/Sulfamethoxazole (Bactrim Ds) 1 each PO DAILY [facility] Last Admin: 11/11/16 09:48 Dose: 1 each Exam - Constitutional Vitals: Temp Pulse Resp BP Pulse Ox 98.5 F 76 18 112/66 98 11/12/16 11:35 11/12/16 11:35 11/12/16 11:35 11/12/16 11:35 11/12/16 11:35 Results - Labs CBC & Chem 7: 11/05/16 07:57 11/12/16 06:04 Labs: Abnormal lab results 11/12/16 Range/Units 06:04 Carbon Dioxide 21 L (22-30) mmol/L
--- NOTE | 2016-11-12 12:23 | Operative Report ---
PREOPERATIVE DIAGNOSIS: Extensive anal fungating lesions extending from the buttocks down through into the anal canal. POSTOPERATIVE DIAGNOSIS: Extensive anal fungating lesions extending from the buttocks down through into the anal canal. PROCEDURE: Wedge biopsy as well as [place] biopsies of anal lesion and culture was also taken. SURGEON: Alvin Orona MD ANESTHESIA: General. ESTIMATED BLOOD LOSS: Minimal. DRAINS: None. COMPLICATIONS: None. PROCEDURE IN DETAIL: The patient was taken to the operating room and placed in a jackknife position, prepped and draped in the usual sterile fashion. A #11 blade was used to complete a wedge biopsy of the lesion extending down to what appeared to be normal skin area and encompassing the subcutaneous tissue. Specimen was sent fresh to pathology for cultures as well as permanent pathology. Multiple [place]-Cut biopsy were also performed of the lesion and these were sent separate. Some of the suppurative exudate from the lesion was also scraped clean and sent for cultures, aerobic, and anaerobic. Needle-tip electrocautery was used to control the oozing from the biopsy site. A 0.5% Marcaine with epinephrine was infiltrated over the area for postoperative pain relief. Pressure dressings were applied. The patient tolerated the procedure well and left the OR in stable condition. JOB# [id number] RAJESH/MALACHI
[2016-11-12] MEDS: EMTRIVA PO SCH (17:11)
[2016-11-12] MEDS: DIFLUCAN PO SCH (17:11)
[2016-11-12] MEDS: NORVIR PO SCH (17:12)
[2016-11-12] MEDS: PREZISTA PO SCH (17:12)
[2016-11-12] MEDS: VIREAD PO SCH (17:12)
[2016-11-12] MEDS: KEPPRA PO SCH ×2 (19:16→22:00)
[2016-11-12] MEDS: BACTRIM DS PO SCH (19:16)
[2016-11-12] MEDS: ZOFRAN IV PRN (21:33)
[2016-11-13] MEDS: NACL 0.45% 1000 ML 1,000 ML IV SCH (05:19)
--- NOTE | 2016-11-13 08:04 | Progress Note ---
Assessment and Plan - Patient Problems (1) Herpes, genital Current Visit: Yes Status: Acute Qualifiers: Herpes simplex infection site: H Plan to address problem: 1. Continue Ganciclovir while here. Monitor renal function closely. 2. Can change to oral Valcyte 900mg PO bid, when patient is ready for discharge. Continue thru ~2016. 3. I will continue to follow the micro/ path results and offer recommendations based on the results. I will see Mr. Holguin on an as-needd basis until then. 4. If patient is discharged before results are final, he can follow-up with his usual ID provider (Dr. Ga Corea) and general surgery (Dr. Orona) for biopsy results. (2) AIDS Current Visit: Yes Status: Acute Plan to address problem: Continue HAART/ OI prophylaxis. Resume home regimen after discharge. (3) Thrush, oral Current Visit: Yes Status: Acute Plan to address problem: Completing course as previously noted. Subjective Date of service: 11/13/16 Principal diagnosis: Genital HSV Outbreak Interval history: Patient is s/p biopsy of gluteal lesions. No new events. Objective - Constitutional Vitals: Vital Signs Temp Pulse Resp BP Pulse Ox 98.9 F 83 18 124/68 97 11/12/16 22:26 11/12/16 22:26 11/12/16 22:26 11/12/16 22:26 11/12/16 22:26 Temperature -Last 24 Hours Temperature 98.9 F Temperature 99.2 F Temperature 98.9 F Temperature 98.5 F Temperature 97.1 F General appearance: Present: well-nourished - Respiratory Respiratory effort: normal Respiratory: bilateral: CTA - Cardiovascular Rhythm: regular Heart Sounds: Present: S1 & S2 Extremities: No edema - Gastrointestinal General gastrointestinal: Present: soft, non-distended Rectal Exam: other (gluteal fold lesions/ ulcerations remain, malodorous serous output) - Genitourinary Male genitourinary: penile edema (unchanged ulceration at penile head) - Integumentary Integumentary: no rash - Neurologic Neurologic: other (hoarse voice s/p intubation) - Psychiatric Psychiatric: appropriate mood/affect - Labs CBC & Chem 7: 11/05/16 07:57 11/12/16 06:04 Labs: Microbiology 11/12/16 Unknown Anus Surgical Biopsy Culture - Preliminary 11/12/16 Unknown Anus Surgical Biopsy Culture - Preliminary 11/12/16 Unknown Anus Surgical Culture - Preliminary 11/06/16 Unknown Stool C. difficile DNA Amplification - Final 11/02/16 14:28 Serum Cryptococcal Antigen - Final
[2016-11-13] MEDS: MORPHINE IV PRN ×3 (09:16→21:52)
[2016-11-13] MEDS: CYTOVENE 500 MG in NACL 0.9% 250ML 250 ML IV SCH ×2 (09:17→21:43)
--- NOTE | 2016-11-13 10:36 | Progress Note ---
Assessment and Plan Assessment and plan: 36 YO Male with [place], CAD S/P Stent placement, Seizure Disorder, AIDS, HSV presents with blood in his stool. Also, the patient was told by his roommate he had a generalized tonic-clonic seizure. Patient has large amounts of ulcers in his genital area due to herpes and is a source of the blood that he saw in the toilet. Herpes, genital Infectious disease input appreciated, continue antivirals, Patient will need to continue IV antivirals and so all the lesions crust over He is a poor candidate for home IV antimicrobials, also patient has refused home healthy as he does not want anyone coming to his house Can change to oral Valcyte 900mg PO bid, when patient is ready for discharge. Continue thru ~2016. jean- Rectal Ulcers not improving, unclear what the etiology is, surgery consult appreciated, Dr Orona to schedule for biopsy of the rectal area ID input appreciated If patient is discharged before results are final, he can follow-up with his usual ID provider (Dr. Ga Corea) and general surgery (Dr. Orona) for biopsy results. AIDS CD4 34 in September 2016 Continue HAART. Infectious disease input appreciated. Crypt ag negative Thrush, oral Current Visit: Yes Status: Acute Plan to address problem: Completing a 10-14-day Fluconazole course. per ID Status epilepticus Normal CT of the head Neurology input appreciated MRI brain showed Tiny chronic lacunar infarct in the left callie. There is no other significant intracranial finding. Continue Keppra Metabolic Encephalopathy acute Most likely due to post ictal state, now resolved Urinary Tract Infection has completed a course of abx with Keflex ; Hematochezia/ GIB most likely due to rectal ulcer, hemoglobin is stable. Loose stools If it recurs we'll send stool for C. difficile DVT prophylaxis Lovenox History Interval history: He continues to complain of pain and drainage from his genital rectal ulcers. Denies fevers, denies chills, denies confusion, denies focal weakness, denies any further episodes of seizure Hospitalist Physical - Physical exam Narrative exam: General: Patient appears well in no distress HEENT: MMM, EOMI cardiac: S1-S2 heard lungs: clear to auscultation, abdomen: soft, nontender, nondistended bowel sounds positive extremities: no edema clubbing or cyanosis Multiple genital and rectal ulcers which there is drainage and foul odor Skin: no rash or lesion Neuro: no focal deficit Psych: appropriate behavior and mood, cognition intact - Constitutional Vitals: Temp Pulse Resp BP Pulse Ox 98.7 F 86 18 138/84 97 11/13/16 08:00 11/13/16 08:00 11/13/16 08:00 11/13/16 08:00 11/13/16 08:00 General appearance: Present: well-nourished Results - Labs CBC & Chem 7: 11/05/16 07:57 11/12/16 06:04 Labs: Laboratory Last Values WBC 6.7 K/mm3 (4.5-11.0) 11/05/16 07:57 RBC 3.02 M/mm3 (3.65-5.03) L 11/05/16 07:57 Hgb 8.7 gm/dl (11.8-15.2) L 11/05/16 07:57 Hct 26.3 % (35.5-45.6) L 11/05/16 07:57 MCV 87 fl (84-94) 11/05/16 07:57 MCH 29 pg (28-32) 11/05/16 07:57 MCHC 33 % (32-34) 11/05/16 07:57 RDW 13.0 % (13.2-15.2) L 11/05/16 07:57 Plt Count 530 K/mm3 (140-440) H 11/05/16 07:57 Lymph % (Auto) Abalone Diver 11/05/16 07:57 [place] % (Auto) Abalone Diver 11/05/16 07:57 Eos % (Auto) Abalone Diver 11/05/16 07:57 Baso % (Auto) Abalone Diver 11/05/16 07:57 Lymph # Abalone Diver 11/05/16 07:57 [place] # Abalone Diver 11/05/16 07:57 Eos # Abalone Diver 11/05/16 07:57 Baso # [place]alone Diver 11/05/16 07:57 Add Manual Diff Complete 11/05/16 07:57 Total Counted 100 11/05/16 07:57 Seg Neutrophils % Abalone Diver 11/05/16 07:57 Seg Neuts % (Manual) 56.0 % (40.0-70.0) 11/05/16 07:57 Band Neutrophils % 1.0 % 11/05/16 07:57 Lymphocytes % (Manual) 22.0 % (13.4-35.0) 11/05/16 07:57 Reactive Lymphs % (Man) 0 % 11/05/16 07:57 Monocytes % (Manual) 20.0 % (0.0-7.3) H 11/05/16 07:57 Eosinophils % (Manual) 1.0 % (0.0-4.3) 11/05/16 07:57 Basophils % (Manual) 0 % (0.0-1.8) 11/05/16 07:57 Metamyelocytes % 0 % 11/05/16 07:57 Myelocytes % 0 % 11/05/16 07:57 Promyelocytes % 0 % 11/05/16 07:57 Blast Cells % 0 % 11/05/16 07:57 Nucleated RBC % Not Reportable 11/05/16 07:57 Seg Neutrophils # Abalone Diver 11/05/16 07:57 Seg Neutrophils # Man 3.8 K/mm3 (1.8-7.7) 11/05/16 07:57 Band Neutrophils # 0.1 K/mm3 11/05/16 07:57 Lymphocytes # (Manual) 1.5 K/mm3 (1.2-5.4) 11/05/16 07:57 Abs React Lymphs (Man) 0.0 K/mm3 11/05/16 07:57 Monocytes # (Manual) 1.3 K/mm3 (0.0-0.8) H 11/05/16 07:57 Eosinophils # (Manual) 0.1 K/mm3 (0.0-0.4) 11/05/16 07:57 Basophils # (Manual) 0.0 K/mm3 (0.0-0.1) 11/05/16 07:57 Metamyelocytes # 0.0 K/mm3 11/05/16 07:57 Myelocytes # 0.0 K/mm3 11/05/16 07:57 Promyelocytes # 0.0 K/mm3 11/05/16 07:57 Blast Cells # 0.0 K/mm3 11/05/16 07:57 WBC Morphology Not Reportable 11/05/16 07:57 Hypersegmented Neuts Not Reportable 11/05/16 07:57 Hyposegmented Neuts Not Reportable 11/05/16 07:57 Hypogranular Neuts Not Reportable 11/05/16 07:57 Smudge Cells Few 11/05/16 07:57 Toxic Granulation Not Reportable 11/05/16 07:57 Toxic Vacuolation Not Reportable 11/05/16 07:57 Dohle Bodies Not Reportable 11/05/16 07:57 Pelger-Huet Anomaly Not Reportable 11/05/16 07:57 Kasie Rods Not Reportable 11/05/16 07:57 Platelet Estimate Appears increased 11/05/16 07:57 Clumped Platelets Not Reportable 11/05/16 07:57 Plt Clumps, EDTA Not Reportable 11/05/16 07:57 Large Platelets Not Reportable 11/05/16 07:57 Giant Platelets Not Reportable 11/05/16 07:57 Platelet Satelliting Not Reportable 11/05/16 07:57 Plt Morphology Comment Not Reportable 11/05/16 07:57 RBC Morphology Normal 11/05/16 07:57 Dimorphic RBCs Not Reportable 11/05/16 07:57 Polychromasia Not Reportable 11/05/16 07:57 Hypochromasia Not Reportable 11/05/16 07:57 Poikilocytosis Not Reportable 11/05/16 07:57 Anisocytosis Not Reportable 11/05/16 07:57 Microcytosis Not Reportable 11/05/16 07:57 Macrocytosis Not Reportable 11/05/16 07:57 Spherocytes Not Reportable 11/05/16 07:57 Pappenheimer Bodies Not Reportable 11/05/16 07:57 Sickle Cells Not Reportable 11/05/16 07:57 Target Cells Not Reportable 11/05/16 07:57 Tear Drop Cells Not Reportable 11/05/16 07:57 Ovalocytes Not Reportable 11/05/16 07:57 Helmet Cells Not Reportable 11/05/16 07:57 Ye[place] Bodies Not Reportable 11/05/16 07:57 [place] Rings Not Reportable 11/05/16 07:57 Darryl Cells Not Reportable 11/05/16 07:57 Bite Cells Not Reportable 11/05/16 07:57 Crenated Cell Not Reportable 11/05/16 07:57 Elliptocytes Not Reportable 11/05/16 07:57 Acanthocytes (Spur) Not Reportable 11/05/16 07:57 Rouleaux Not Reportable 11/05/16 07:57 Hemoglobin C Crystals Not Reportable 11/05/16 07:57 Schistocytes Not Reportable 11/05/16 07:57 Malaria parasites Not Reportable 11/05/16 07:57 Jaime Bodies Not Reportable 11/05/16 07:57 Hem Pathologist Commnt No 11/05/16 07:57 Sodium 140 mmol/L (137-145) 11/12/16 06:04 Potassium 4.4 mmol/L (3.6-5.0) 11/12/16 06:04 Chloride 102.3 mmol/L (98-107) 11/12/16 06:04 Carbon Dioxide 21 mmol/L (22-30) L 11/12/16 06:04 Anion Gap 21 mmol/L 11/12/16 06:04 BUN 10 mg/dL (9-20) 11/12/16 06:04 Creatinine 0.8 mg/dL (0.8-1.5) 11/12/16 06:04 Estimated GFR > 60 ml/min 11/12/16 06:04 BUN/Creatinine Ratio 12.50 % 11/12/16 06:04 Glucose 82 mg/dL (75-100) 11/12/16 06:04 POC Glucose 111 (70-105) H 11/02/16 14:21 Calcium 8.9 mg/dL (8.4-10.2) 11/12/16 06:04 Total Bilirubin 0.30 mg/dL (0.1-1.2) 11/02/16 14:28 AST 17 units/L (5-40) 11/02/16 14:28 ALT 7 units/L (7-56) 11/02/16 14:28 Alkaline Phosphatase 100 units/L (35-129) 11/02/16 14:28 Troponin T < 0.010 ng/mL (0.00-0.029) 11/02/16 20:20 Total Protein 7.8 g/dL (6.3-8.2) 11/02/16 14:28 Albumin 3.1 g/dL (3.9-5) L 11/02/16 14:28 Albumin/Globulin Ratio 0.7 % 11/02/16 14:28 Urine Color Yellow (Yellow) 11/02/16 16:34 Urine Turbidity Clear (Clear) 11/02/16 16:34 Urine pH 5.0 (5.0-7.0) 11/02/16 16:34 Ur Specific [place] 1.027 (1.003-1.030) 11/02/16 16:34 Urine Protein 30 mg/dl mg/dL (Negative) 11/02/16 16:34 Urine Glucose (UA) Neg mg/dL (Negative) 11/02/16 16:34 Urine Ketones Neg mg/dL (Negative) 11/02/16 16:34 Urine Blood Neg (Negative) 11/02/16 16:34 Urine Nitrite Neg (Negative) 11/02/16 16:34 Urine Bilirubin Neg (Negative) 11/02/16 16:34 Urine Urobilinogen 4.0 mg/dL (<2.0) 11/02/16 16:34 Ur Leukocyte Esterase Mod (Negative) 11/02/16 16:34 Urine WBC (Auto) 63.0 /HPF (0.0-6.0) H 11/02/16 16:34 Urine RBC (Auto) 16.0 /HPF (0.0-6.0) 11/02/16 16:34 U Epithel Cells (Auto) 5.0 /HPF (0-13.0) 11/02/16 16:34 Urine Mucus Few /HPF 11/02/16 16:34 Phenytoin 0.8 mg/L (10.0-20.0) L 11/02/16 14:28 Valproic Acid < 2.8 ug/mL (50-100) L 11/02/16 14:28
[2016-11-13] MEDS: BACTRIM DS PO SCH (12:26)
[2016-11-13] MEDS: KEPPRA PO SCH ×2 (12:26→21:44)
[2016-11-13] MEDS: PREZISTA PO SCH (12:26)
[2016-11-13] MEDS: EMTRIVA PO SCH (12:27)
[2016-11-13] MEDS: NORVIR PO SCH (12:27)
[2016-11-13] MEDS: VIREAD PO SCH (12:27)
[2016-11-13] MEDS: DIFLUCAN PO SCH (12:28)
--- NOTE | 2016-11-13 12:32 | Progress Note ---
Assessment and Plan POD #1 Pt feeling well without compl preliminary path - chondyloma surgically stable will follow prn rec - f/u with colo-rectal surg as outpt Objective Vital Signs - 12hr 11/13/16 08:00 Temperature 98.7 F Pulse Rate 86 Respiratory 18 Rate Blood Pressure 138/84 O2 Sat by Pulse 97 Oximetry - Labs 11/05/16 07:57 11/12/16 06:04
[2016-11-14] MEDS: MORPHINE IV PRN ×2 (01:57→08:00)
[2016-11-14] MEDS: ZOFRAN IV PRN (01:57)
[2016-11-14] MEDS: CYTOVENE 500 MG in NACL 0.9% 250ML 250 ML IV SCH (08:42)
[2016-11-14] MEDS: EMTRIVA PO SCH (10:28)
[2016-11-14] MEDS: KEPPRA PO SCH (10:28)
[2016-11-14] MEDS: BACTRIM DS PO SCH (10:28)
[2016-11-14] MEDS: PREZISTA PO SCH (10:28)
[2016-11-14] MEDS: NORVIR PO SCH (10:28)
[2016-11-14] MEDS: VIREAD PO SCH (10:28)
[2016-11-14] MEDS: DIFLUCAN PO SCH (10:28)
--- NOTE | 2016-11-14 13:21 | Progress Note ---
Assessment and Plan - Patient Problems (1) Herpes, genital Current Visit: Yes Status: Acute Qualifiers: Herpes simplex infection site: H Plan to address problem: 1. Pending final path of gluteal biopsy. 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 2. Patient will follow-up with general surgeon and Dr. Corea, ID. 3. Continue Valcyte orally to compelte course as previously noted. 4. Adding Levaquin to complete a 10-14-day course as path describes potential bacterial superinfection. (2) AIDS Current Visit: Yes Status: Acute Plan to address problem: Resume home regimen of Descovy and Prescobix. (3) Thrush, oral Current Visit: Yes Status: Acute Plan to address problem: Complete course of Fluconazole. Subjective Date of service: 11/14/16 Principal diagnosis: Genital HSV Outbreak Interval history: Path report reviewed. Case also discussed with primary MD. Objective - Constitutional Vitals: Vital Signs Temp Pulse Resp BP Pulse Ox 98.0 F 67 20 137/80 99 11/14/16 07:00 11/14/16 07:00 11/14/16 07:00 11/14/16 07:00 11/14/16 07:00 Temperature -Last 24 Hours Temperature 98.0 F Temperature 98.6 F Temperature 98.9 F - Labs CBC & Chem 7: 11/05/16 07:57 11/12/16 06:04 Labs: Microbiology 11/12/16 Unknown Anus Surgical Biopsy Culture - Preliminary Gram Negative Kit Beta Hemolytic Strep Group C Diphtheroids 11/12/16 Unknown Anus Surgical Culture - Preliminary Gram Negative Kit Beta Hemolytic Strep Group C 11/12/16 Unknown Anus Surgical Biopsy Culture - Preliminary Gram Negative Kit Beta Hemolytic Strep Group C Diphtheroids 11/12/16 Unknown Anus Anaerobic Culture - Preliminary 11/12/16 Unknown Anus Anaerobic Culture - Preliminary 11/12/16 Unknown Anus Anaerobic Culture - Preliminary 11/06/16 Unknown Stool C. difficile DNA Amplification - Final 11/02/16 14:28 Serum Cryptococcal Antigen - Final
--- NOTE | 2016-11-14 13:52 | Discharge Summary ---
Providers - Providers Date of Admission: 11/02/16 16:37 Attending physician: VENKAT MOELLER MD 11/02/16 18:23 Consult to Physician [CONS] Routine Consulting Provider: KATHY TIWARI Reason For Exam: GI bleed Place consult to:: GI/DR.C. BASS Notified:: ANSWERING SERVICES Phone number called:: [phone] Was contact made?: Yes If yes, spoke with:: YUNIER Time called:: 19:00 Comment:: MADDIE NOTIFIED 11/03/16 07:37 Consult to Physician [CONS] Routine Consulting Provider: RUSSELL MENA Reason For Exam: seizure Place consult to:: DR. MENA Notified:: OFFICE Phone number called:: [phone] Was contact made?: Yes If yes, spoke with:: RADHA Time called:: 09:41 Comment:: MARIFER NOTIFIED 11/03/16 09:16 Consult to Wound/ET Nurse [CONS] Routine Reason For Exam: wound eval 11/03/16 09:32 Consult to Physician [CONS] Routine Consulting Provider: TAIWO KNIGHT Reason For Exam: KRUPA and sacrum wound Place consult to:: yes Notified:: DR. MOYA Phone number called:: yes 11/04/16 15:59 Midline [Consult to PICC Line RN] [CONS] Stat Reason For Exam: impaired peripheral iv access Type Line:: Midline 11/10/16 15:27 Consult to Physician [CONS] Routine Consulting Provider: ISIAH DIAZ Reason For Exam: needs rectal area biopsy Place consult to:: DR. 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 [address], CAD S/P Stent placement, Seizure Disorder, AIDS, HSV presents with blood in his stool. Also, the patient was told by his roommate he had a generalized tonic-clonic seizure. Patient has large amounts of ulcers in his genital area due to herpes and is a source of the blood that he saw in the toilet. He was seen in conjunction with infectious disease and general surgery and neurology. * With regards to genital herpes. He was treated with IV antivirals, as he clinically improved he was transitioned to oral antivirals. 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 He was seen in conjunction with infectious disease who recommended putting him on Levaquin for 10 days * As patient suffers from AIDS he was continued on retrovirals along with prophylactic medications * He completed a course of fluconazole for treatment of oral thrush * He presented with status epilepticus, he had a normal CT of his head he was seen in conjunction with neurology, MRI of his brain did not show any acute findings. Therefore he was treated with Keppra which we'll continue upon discharge * He also completed a course of Keflex for urinary tract infection * He did have some loose stools or hematochezia. Her first was sent for C. difficile which was negative. Hematochezia was most likely due to rectal ulcers and condyloma. It resolved and his hemoglobin was stable throughout the course of his admission * He will follow up with infectious disease and he will also follow up with general surgery for follow-up of his biopsy results. Discharge diagnoses Genital herpes with acute exacerbation Perirectal condyloma AIDS Oral thrush, [place] Status epilepticus Metabolic Encephalopathy acute Urinary Tract Infection Hematochezia/ GIB Disposition: TO HOME OR SELFCARE Time spent for discharge: 32 minutes Core Measure Documentation - Palliative Care Palliative Care/ Comfort Measures: Not Applicable - Core Measures Any of the following diagnoses?: none Exam - Physical Exam Narrative exam: General: Patient appears well in no distress HEENT: MMM, EOMI cardiac: S1-S2 heard lungs: clear to auscultation, abdomen: soft, nontender, nondistended bowel sounds positive extremities: no edema clubbing or cyanosis Multiple genital and rectal ulcers which there is drainage and foul odor Skin: no rash or lesion Neuro: no focal deficit Psych: appropriate behavior and mood, cognition intact - Constitutional Vitals: Temp Pulse Resp BP Pulse Ox 98.0 F 67 20 137/80 99 11/14/16 07:00 11/14/16 07:00 11/14/16 07:00 11/14/16 07:00 11/14/16 07:00 Plan Follow up with: PRIMARY MD ALIRIO [Primary Care Provider] - 3-5 Days ISIAH DIAZ MD [Staff Physician] - 7 Days TAIWO KNIGHT MD [Staff Physician] - 7 Days Prescriptions: Acetaminophen/Codeine [Tylenol /Codeine # 3 tab] 1 tab PO Q6H PRN #14 tablet PRN Reason: Pain, Moderate (4-6) Darunavir [Prezista] 800 mg PO QDAY #30 tablet levETIRAcetam [Keppra TAB] 500 mg PO BID #60 tablet Levofloxacin [Levaquin TAB] 750 mg PO Q24H #14 tablet oxyCODONE /ACETAMINOPHEN [Percocet 5/325 mg] 1 tab PO Q4H PRN #14 tablet PRN Reason: Pain, Moderate (4-6) Ritonavir [Norvir] 100 mg PO QDAY #30 tab Sulfamethoxazole/Trimethoprim [Bactrim DS TAB] 1 each PO DAILY #30 tablet Tenofovir [Viread] 300 mg PO QDAY #30 tablet Valganciclovir HCl [Valcyte] 900 mg PO BID #32 tablet
[2016-11-14] MEDS ORDERED: LEVAQUIN PO SCH ×2 (14:00→14:30)
[2016-11-14] MEDS: PERCOCET 5/325 PO PRN (15:30)
[2016-11-14 17:32] VITALS: BP 133/92
== END 2016-11-14 20:00 | disposition home or self-care (01) | DRG 975 ==
LOC: ED 13:29 → 3A 16:37
PROVIDERS: ADMIT Internal Medicine; ATTEND Internal Medicine
PROC: 0JB90ZX Excision of Buttock Subcutaneous Tissue and Fascia, Open Approach, Diagnostic (ICD-10-PCS; principal; 2016-11-12)
DX: B20 Human immunodeficiency virus [HIV] disease (principal); K62.6 Ulcer of anus and rectum; B37.0 Candidal stomatitis; N39.0 Urinary tract infection, site not specified; K62.5 Hemorrhage of anus and rectum; B00.9 Herpesviral infection, unspecified; G89.29 Other chronic pain; N48.5 Ulcer of penis; G40.901 Epilepsy, unspecified, not intractable, with status epilepticus; I25.10 Atherosclerotic heart disease of native coronary artery without angina pectoris; Z82.49 Family history of ischemic heart disease and other diseases of the circulatory system; Z80.0 Family history of malignant neoplasm of digestive organs; Z95.5 Presence of coronary angioplasty implant and graft; I25.2 Old myocardial infarction
CPT/HCPCS: 36415; 70450; 70551; 71010; 80048; 80053; 80164; 80185; 81001; 82955; 82962; 84484; 85007; 85014; 85018; 85025; 86403; 87075; 87076; 87116; 87186; 87493; 88305; 88307; 88341; 88342; 93005; 93010; 95819; 96374; 96375; 99285; J0133; J0330; J1100; J1170; J1570; J2060; J2250; J2270; J2405; J2704; J3010; J7030; J7050; Q2009